=== PATIENT | female | born 2005 | race Caucasian/White ===

== ENCOUNTER 2023-04-02 17:51 | Inpatient (IN) ==
[2023-04-02] MEDS ORDERED: SODIUM CHLORIDE 0.9% 500 ML IV STA (18:13)
[2023-04-02] MEDS ORDERED: ONDANSETRON INJ 2 MG/ML 2 ML VIAL IV STA ×2 (18:13→21:54)
[2023-04-02 18:53] LABS: Basophils # (auto) 0.01 K/uL (0.00-0.20); Basophils % (auto) 0.2 %; Hematocrit (blood only) 32.8 % (37.0-47.0); Hemoglobin 10.4 g/dl (12.0-16.0); Immature Granulocytes # (auto) 0.01 K/uL (0.01-0.20); Immature Granulocytes % (auto) 0.2 %; Lymphocytes # (auto) 1.58 K/uL (1.20-3.40); Lymphocytes % (auto) 30.8 %; Mean Corpuscular Hemoglobin 22.7 pg (25.0-34.0); Mean Corpuscular Hgb Conc 31.7 g/dL (32.0-36.0); Mean Corpuscular Volume 71.6 fL (80.0-100.0); Mean Platelet Volume 10.2 fL (9.4-12.4); Monocytes # (auto) 0.68 K/uL (0.11-0.59); Monocytes % (auto) 13.3 %; Neutrophils # (auto) 2.85 K/uL (1.40-6.50); Neutrophils % (auto) 55.5 %; Platelet Count 244 K/uL (130-400); RDW Coefficient of Variation 17.6 % (11.5-14.5); RDW Standard Deviation 45.5 fL (36.4-46.3); Red Blood Count 4.58 M/uL (4.20-5.40); White Blood Count 5.13 K/ul (4.8-10.8)
[2023-04-02 19:13] LABS: Albumin Globulin Ratio 1.6 (0.9-2); Albumin Level 4.5 gm/dl (3.4-5.0); BUN Creatinine Ratio 9.8 (10-20); Bilirubin,Total 0.4 mg/dl (0.2-1.0); Calcium 9.2 mg/dl (8.6-10.3); Creatinine Clr Calc Pharmacy 103.3 ml/min; Est GFR (African American) 120.2 ml/min; Est GFR (Non-African American) 103.7 ml/min; Globulin 2.9 gm/dl (2.5-4.0); Potassium 3.5 mmol/L (3.5-5.1); Total Protein 7.4 gm/dl (6.0-8.3)
--- NOTE | 2023-04-02 19:17 | Emergency Department Note ---
History of Present Illness General Chief complaint: Vomiting Stated complaint: VOMIT, NAUSEA, ABD PAIN Time Seen by Provider: 04/02/23 18:57 History of Present Illness This is an otherwise healthy 17-year-old female that presents to the emergency department via private vehicle accompanied by mother with complaints of "vomiting, nausea, abdominal pain". The patient notes that for the past several days she has had vomiting. She notes flulike symptoms Wednesday, vomiting on Wednesday with recent diagnosis of influenza and adenovirus by [employer] testing here recently in the ED. Patient notes ongoing nausea and vomiting despite antiemetics. She denies any blood or dark-colored vomit at the present time. No fevers. No pertinent past medical history. She has a history of ankle surgery and nasal surgery before. No allergies to medication. She also notes some intermittent discomfort in the upper abdomen when vomiting. Home Medications Medication Instructions Recorded Confirmed Type hydroxyzine pamoate 50 mg capsule 50 mg PO Q8H PRN sleep/anxiety #15 01/26/23 04/02/23 Rx (Vistaril) caps lorazepam 1 mg tablet 1 mg PO BID PRN anxiety #6 tabs 01/26/23 04/02/23 Rx ferrous sulfate 325 mg (65 mg 325 mg PO QAM 04/02/23 04/02/23 History iron) tablet methylphenidate HCl 18 mg 18 mg PO QAM 04/02/23 04/02/23 History tablet,extended release 24 hr (Concerta) prochlorperazine maleate 10 mg 10 mg PO Q6H PRN nausea and 04/02/23 Rx tablet (Compazine) vomiting #10 tabs Allergies Allergy/AdvReac Type Severity Reaction Status Date / Time No Known Allergies Allergy Unverified 04/02/23 08:45 Past Med/Surg History Medical History No pertinent past medical history Surgical History History of nasal surgery History of ankle surgery Social History Smoking Status: Never smoker Hx Alcohol Use: No Hx Substance Use: No Preferred Language: Cuban Feels Safe at Home: Yes Review of Systems A total of 10 systems reviewed and were otherwise negative Physical Exam Vital Signs Vital Signs - 24 hr 04/02/23 18:10 04/02/23 19:50 04/02/23 20:06 Temperature 36.4 C L Temperature Source Temporal Artery Scan Pulse Rate 103 H 58 L 70 Pulse Rate from SpO2 Sensor Pulse Rhythm Respiratory Rate 20 20 23 Respiratory Effort / Characteristics Non-Labored Spontaneous Respiratory Depth Normal Blood Pressure 125/68 Blood Pressure Mean 87 Pulse Oximetry 97 100 100 Oxygen Delivery Method Room Air Room Air Sepsis Recent Fever Within 48 Hours No Sepsis New/Unexplained Change in Mental Status No Sepsis Action Taken by Nursing No Action Required 04/02/23 20:07 04/02/23 20:30 04/02/23 20:47 Temperature Temperature Source Pulse Rate 63 48 L 52 L Pulse Rate from SpO2 Sensor 47 L Pulse Rhythm Regular Respiratory Rate 20 24 Respiratory Effort / Characteristics Respiratory Depth Blood Pressure Blood Pressure Mean Pulse Oximetry 100 99 Oxygen Delivery Method Room Air Room Air Sepsis Recent Fever Within 48 Hours Sepsis New/Unexplained Change in Mental Status Sepsis Action Taken by Nursing 04/02/23 21:01 Temperature Temperature Source Pulse Rate 51 L Pulse Rate from SpO2 Sensor 51 L Pulse Rhythm Respiratory Rate 17 Respiratory Effort / Characteristics Respiratory Depth Blood Pressure 141/70 H Blood Pressure Mean 93 Pulse Oximetry 99 Oxygen Delivery Method Room Air Sepsis Recent Fever Within 48 Hours Sepsis New/Unexplained Change in Mental Status Sepsis Action Taken by Nursing VITAL SIGNS - Vital signs and nursing notes were reviewed. Stable and afebrile. GENERAL -17-year-old female appearing her stated age who is anxious appearing, but otherwise communicates well with provider and answers questions appropriately. SKIN - Without rashes. No meningeal or petechial rash. HEAD - NC/AT. EYES - PERRL with EOMI bilaterally. Sclera anicteric. EARS - No deformities of external structures noted on gross examination bilaterally. NOSE - Midline and without cyanosis. No epistaxis or purulent drainage noted. MOUTH/OROPHARYNX - Without perioral cyanosis. Buccal mucosa pink and moist and without leukoplakia. Tongue midline with equal elevation of palate bilaterally. No tonsillar hypertrophy, erythema, or exudates noted. Good dentition noted. NECK - Neck with FROM. No nuchal rigidity. LUNGS - Chest wall symmetric without accessory muscle use, intercostals retractions, or central cyanosis. Normal vesicular breath sounds CTA B/L. No wheezes, rales, or rhonchi appreciated. CARDIAC - RRR with S1/S2. No murmur, rubs, or gallops appreciated. ABDOMEN - Abdominal contour normal without pulsations or visible masses. BS normoactive all four quadrants. Mild epigastric abdominal tenderness to palpation. No guarding or rigidity. EXTREMITIES - No clubbing or peripheral cyanosis. +5/5 strength noted in UE/LE bilaterally. NEUROLOGIC - Cranial nerves II through XII grossly intact. PSYCH - A&O, and cooperates fully with examiner. Pt is very pleasant and interacts well with examiner. Course Administered Medications Pantoprazole Sodium 40 mg/ (Dextrose) 100 mls @ 20 mls/hr IV Q5H DAVID Stop: 05/02/23 20:29 Last Admin: 04/02/23 21:23 Dose: 8 mg/hr, 20 mls/hr Documented By: NORI Discontinued Medications Diphenhydramine HCl (Diphenhydramine 50 Mg/Ml Vial) 25 mg IV NOW STA Stop: 04/02/23 19:22 Last Admin: 04/02/23 19:40 Dose: 25 mg Documented By: NORI Sodium Chloride (Nss) 500 mls @ 999 mls/hr IV .Q31M STA Stop: 04/02/23 18:43 Last Infusion: 04/02/23 19:18 Dose: Infused Documented By: Admin: 04/02/23 18:41 Dose: 999 mls/hr Documented By: KELSEY Pantoprazole Sodium 80 mg/ (Dextrose) 120 mls @ 400 mls/hr IV NOW ONE Stop: 04/02/23 20:19 Last Infusion: 04/02/23 21:21 Dose: Infused Documented By: Admin: 04/02/23 20:50 Dose: 400 mls/hr Documented By: NORI Ioversol (Optiray 320 500ml) 84 ml IV ONCE ONE Stop: 04/02/23 20:00 Last Admin: 04/02/23 20:00 Dose: 84 ml Documented By: ADDIE Lorazepam (Lorazepam 1 Mg/1 Ml Syr Ed Inj Use) 1 mg IV ONE STA Stop: 04/02/23 20:18 Last Admin: 04/02/23 20:49 Dose: 1 mg Documented By: NORI Metoclopramide HCl (Metoclopramide Hcl Inj 5 Mg/Ml 2 Ml Vial) 5 mg IV ONE ONE Stop: 04/02/23 19:22 Last Admin: 04/02/23 19:39 Dose: 5 mg Documented By: NORI Ondansetron HCl (Ondansetron Inj 2 Mg/Ml 2 Ml Vial) 4 mg IV NOW STA Stop: 04/02/23 18:14 Last Admin: 04/02/23 18:41 Dose: 4 mg Documented By: KELSEY Ondansetron HCl (Ondansetron Inj 2 Mg/Ml 2 Ml Vial) 4 mg IV NOW STA Stop: 04/02/23 21:55 Last Admin: 04/02/23 22:28 Dose: 4 mg Documented By: MALENA Medical Decision Making Laboratory Data 04/02/23 18:40 04/02/23 18:40 Lab Results 04/02/23 04/02/23 04/02/23 Range/Units 18:40 20:49 21:12 WBC 5.13 (4.8-10.8) K/ul RBC 4.58 (4.20-5.40) M/uL Hgb 10.4 L (12.0-16.0) g/dl Hct 32.8 L (37.0-47.0) % MCV 71.6 L (80.0-100.0) fL MCH 22.7 L (25.0-34.0) pg MCHC 31.7 L (32.0-36.0) g/dL RDW Std Deviation 45.5 (36.4-46.3) fL RDW Coeff of Shaylee 17.6 H (11.5-14.5) % Plt Count 244 (130-400) K/uL MPV 10.2 (9.4-12.4) fL Immature Gran % (Auto) 0.2 % Neut % (Auto) 55.5 % Lymph % (Auto) 30.8 % Lyman % (Auto) 13.3 % Eos % (Auto) 0.0 % Baso % (Auto) 0.2 % Neut # (Auto) 2.85 (1.40-6.50) K/uL Lymph # (Auto) 1.58 (1.20-3.40) K/uL Lyman # (Auto) 0.68 H (0.11-0.59) K/uL Eos # (Auto) 0.00 (0.00-0.50) K/uL Baso # (Auto) 0.01 (0.00-0.20) K/uL Immature Gran # (Auto) 0.01 (0.01-0.20) K/uL Sodium 141 (136-145) mmol/L Potassium 3.5 (3.5-5.1) mmol/L Chloride 107 (98-107) mmol/L Carbon Dioxide 19 L (21-32) mmol/L Anion Gap 15 H (3-11) BUN 8 (6-23) mg/dl Creatinine 0.82 (0.6-1.2) mg/dl Est Cr Clr Drug Dosing 103.3 ml/min Est GFR ( Amer) 120.2 ml/min Est GFR (Non-Af Amer) 103.7 ml/min BUN/Creatinine Ratio 9.8 L (10-20) Glucose 91 (70-99(Fasting)) mg/dl Calcium 9.2 (8.6-10.3) mg/dl Total Bilirubin 0.4 (0.2-1.0) mg/dl AST 45 H (13-39) U/L ALT 31 (7-52) U/L Alkaline Phosphatase 57 (34-104) U/L Total Protein 7.4 (6.0-8.3) gm/dl Albumin 4.5 (3.4-5.0) gm/dl Globulin 2.9 (2.5-4.0) gm/dl Albumin/Globulin Ratio 1.6 (0.9-2) Lipase 28 (11-82) U/L HCG, Qual Negative (Negative) Gastric Fluid pH 2 Gastric Occult Blood Positive A (Negative) Blood Type O Positive Antibody Screen NEGATIVE Imaging Data Radiologist's Impression: Abdomen/Pelvis CT 04/02/23 19:08 CT SCAN OF THE ABDOMEN AND PELVIS WITH IV CONTRAST CLINICAL HISTORY: Epigastric abdominal pain. Vomiting. COMPARISON STUDY: No priors. TECHNIQUE: Following the IV administration of 84 cc of Optiray 320, CT scan of the abdomen and pelvis is performed from the lung bases to the proximal femora. Images are reviewed in the axial, sagittal, and coronal planes. IV contrast was administered without complication. A dose lowering technique was utilized adhering to the principles of ALARA. CT DOSE: 822.53 mGy.cm FINDINGS: Lung bases: The heart is normal in size and without pericardial effusion. The lung bases are clear. Liver: The contrast-enhanced liver is normal in size, contour, and attenuation. Fatty infiltration is seen adjacent to the falciform ligament. There is no intrahepatic biliary ductal dilatation. The hepatic veins and portal veins are patent. Gallbladder: Unremarkable. Spleen: Normal in size and attenuation. Pancreas: Unremarkable. Adrenal glands: Unremarkable. Kidneys: The contrast enhanced kidneys are normal in size and without hydronephrosis. The kidneys enhance symmetrically. Abdominal vasculature: The abdominal aorta is normal in course and caliber. Bowel: There is no bowel obstruction. The appendix is well-visualized and normal. Peritoneum: There is no intraperitoneal free air or abdominal ascites. There is a small fat-containing umbilical hernia. Lymphadenopathy: None. Pelvic viscera: The bladder, uterus, and adnexa are normal as visualized noting bilateral ovarian follicles. There is trace free fluid in the cul-de-sac. Skeletal structures: No lytic or blastic lesions are seen. IMPRESSION: 1. No acute infectious or inflammatory findings are identified in the abdomen or pelvis. 2. Trace free fluid in the cul-de-sac is nonspecific and likely physiologic. ACT 112: Negative or not required by law. Electronically signed by: Nilesh Canales M.D. 04/02/2023 8:38 PM Chest X-Ray 04/02/23 19:08 SINGLE VIEW CHEST CLINICAL HISTORY: Vomiting FINDINGS: An AP, portable, upright chest radiograph is obtained. No prior studies are available for comparison at the time of dictation. The cardiomediastinal silhouette is unremarkable. The lungs and pleural spaces are clear. No pneumothorax is seen. The bony thorax is grossly intact. IMPRESSION: No active disease in the chest. ACT 112: Negative or not required by law. Electronically signed by: Nilesh Canales M.D. 04/02/2023 8:35 PM [facility] [place] Narrative Patient was seen and evaluated as above in room D09. Review was performed of triage nursing notes and vital signs. I did review pertinent previous visits and patient history. After obtaining a thorough history and physical examination the above work up was performed. Patient presents to us today for evaluation of ongoing nausea, vomiting and epigastric abdominal pain. This is the patient's third ED visit for similar in the past 24 hours. The patient does appear anxious on examination and is vomiting into an emesis bag. Emesis at the present time is not discolored. There is no bright red blood. No coffee-ground appearance. Options of care were discussed with the patient as well as mother at bedside. IV access with established. Labs were drawn. No leukocytosis. There is now a downtrending anemia with hemoglobin currently of 10.4. Initially it was 13 around 10 PM last night. Metabolic panel reveals anion gap 15, carbon dioxide 19. Mild AST elevation at 45. hCG negative. Lipase normal. Chest x-ray negative. CT scan of the abdomen/pelvis without emergent finding. During the patient's time here the gastric contents within the emesis bag seemed to have changed with the vomiting to more of a coffee-ground appearance. This was checked and was Hemoccult positive. Protonix bolus and drip was ordered. Patient did receive several antiemetics here and Ativan. She upon reevaluation did have cessation of the vomiting. I do believe that further evaluation and management in the inpatient setting is warranted. Case discussed with the hospitalist, Dr. Recinos. Please refer to further documentation regarding her stay. EKG reveals sinus bradycardia at rate of [address] elevation. QTc 449. QRS 76 GCS: 15 In the evaluation and treatment of this patient the following differential diagnoses were entertained: GI bleed, Maddy-Navarro tear, Boerhaave's syndrome, perforated gastric ulcer, gastritis, esophagitis, influenza, among others Impression & Plan Nausea & vomiting, Acute GI bleeding, Anemia Discharge Plan Visit Data Chief Complaint: Vomiting Stated Complaint: VOMIT, NAUSEA, ABD PAIN ED Provider: Jaylen Mcknight ED Midlevel Provider: Guzman Maravilla Discharge Problem: Nausea & vomiting, Acute GI bleeding, Anemia Patient Disposition: Admitted As Inpatient Condition: Good Forms Stand Alone Forms: [employer] Prescriptions Prescriptions: No Action lorazepam 1 mg tablet 1 mg PO BID PRN (Reason: anxiety) Qty: 6 0RF hydroxyzine pamoate [Vistaril] 50 mg capsule 50 mg PO Q8H PRN (Reason: sleep/anxiety) Qty: 15 0RF ferrous sulfate 325 mg (65 mg iron) Tablet 325 mg PO QAM methylphenidate HCl [Concerta] 18 mg Tablet Extended Release 24hr 18 mg PO QAM prochlorperazine maleate [Compazine] 10 mg tablet 10 mg PO Q6H PRN (Reason: nausea and vomiting) Qty: 10 0RF Referrals Referrals: [facility] [Primary Care Provider] -
[2023-04-02] MEDS ORDERED: diphenhydrAMINE 50 MG/ML VIAL IV STA (19:21)
[2023-04-02] MEDS ORDERED: METOCLOPRAMIDE HCL INJ 5 MG/ML 2 ML VIAL IV ONE (19:21)
[2023-04-02 19:37] LABS: Pregnancy Test, Serum Negative (Negative)
[2023-04-02] MEDS ORDERED: OPTIRAY 320 500ml IV ONE (19:59)
[2023-04-02] MEDS ORDERED: PANTOprazole 80 MG in DEXTROSE 5% 100 ML IV ONE (20:02)
[2023-04-02] MEDS ORDERED: PANTOPRAZOLE BOLUS/DRIP IV STA (20:02)
[2023-04-02] MEDS ORDERED: LORazepam 1 MG/1 ML SYR ED Inj Use IV STA (20:17)
--- NOTE | 2023-04-02 20:36 | XRay Report ---
SINGLE VIEW CHEST CLINICAL HISTORY: Vomiting FINDINGS: An AP, portable, upright chest radiograph is obtained. No prior studies are available for c omparison at the time of dictation. The cardiomediastinal silhouette is unremarkable. The lungs and p leural spaces are clear. No pneumothorax is seen. The bony thorax is grossly intact. IMPRESSION: No active disease in the chest. ACT 112: Negative or not required by law. Electronically signed by: Nilesh Canales M.D. 04/02/2023 8:35 PM
--- NOTE | 2023-04-02 20:41 | CT Scan Report ---
CT SCAN OF THE ABDOMEN AND PELVIS WITH IV CONTRAST CLINICAL HISTORY: Epigastric abdominal pain. Vomiting. COMPARISON STUDY: No priors. TECHNIQUE: Following the IV administration of 84 cc of Optiray 320, CT scan of the abdomen and pelvi s is performed from the lung bases to the proximal femora. Images are reviewed in the axial, sagittal , and coronal planes. IV contrast was administered without complication. A dose lowering technique wa s utilized adhering to the principles of ALARA. CT DOSE: 822.53 mGy.cm FINDINGS: Lung bases: The heart is normal in size and without pericardial effusion. The lung bases are clear. Liver: The contrast-enhanced liver is normal in size, contour, and attenuation. Fatty infiltration is seen adjacent to the falciform ligament. There is no intrahepatic biliary ductal dilatation. The hep atic veins and portal veins are patent. Gallbladder: Unremarkable. Spleen: Normal in size and attenuation. Pancreas: Unremarkable. Adrenal glands: Unremarkable. Kidneys: The contrast enhanced kidneys are normal in size and without hydronephrosis. The kidneys enh ance symmetrically. Abdominal vasculature: The abdominal aorta is normal in course and caliber. Bowel: There is no bowel obstruction. The appendix is well-visualized and normal. Peritoneum: There is no intraperitoneal free air or abdominal ascites. There is a small fat-containin g umbilical hernia. Lymphadenopathy: None. Pelvic viscera: The bladder, uterus, and adnexa are normal as visualized noting bilateral ovarian fol licles. There is trace free fluid in the cul-de-sac. Skeletal structures: No lytic or blastic lesions are seen. IMPRESSION: 1. No acute infectious or inflammatory findings are identified in the abdomen or pelvis. 2. Trace free fluid in the cul-de-sac is nonspecific and likely physiologic. ACT 112: Negative or not required by law. Electronically signed by: Nilesh Canales M.D. 04/02/2023 8:38 PM
[2023-04-02 20:56] LABS: Gastric Occult Blood Positive (Negative); pH Gastric Fluid 2
[2023-04-02] MEDS: PANTOprazole 40 MG in DEXTROSE 5% MINI-B 100 ML IV SCH (21:23)
--- NOTE | 2023-04-02 21:50 | History & Physical Report ---
Date of Service April 02, 2023 Assessment & Plan (1) Nausea & vomiting: Plan: 17 yo female with PMHx GERD, anxiety, and ADHD presents with vomiting. #Intractable Vomiting -presented with 5 days of nonspecific symptoms with persistent N/V. Tested positive for adenovirus and influenza which are the most likely culprit. Minimal alcohol use with last drink over 2 weeks ago. Has only tried marijuana once in the distant past. She did recently start Concerta ~2 weeks ago however it would be less likely for side effects related to medication to begin 1 week after initiation. -CXR and CT A/P unremarkable -UDS pending -supportive care #Anemia, acute -Hgb 13 (04/01/23). Appears to be trending down, 10.4 on this admission. +gastric occult. Possibly dilutional since she has received 4L IVF since lat night. Cannot exclude GI bleed, suspicion for Maddy Navarro tear 2/2 vomiting. -CT A/P unremarkable -NPO, maintenance IVF, protonix drip -FOBT ordered -GI consulted -trend H&H #Anxiety -IV ativan prn #ADHD -started concerta 2 weeks ago. Unclear if attributing to intractable vomiting. Hold for now. DVT ppx: ambulation; avoid chemical due to possible GI bleed FEN/GI: NPO, IVF Code Status: full Dispo: med tele (2) Influenza A: Plan: Supportive care at this (3) Adenovirus infection: Plan: Supportive care at this (4) Acute anxiety: Plan: Supportive care at this time (5) Anemia: Plan: As discussed above and resident physician (6) Acute GI bleeding: Plan: As discussed above and resident physician. Continue IV Protonix. History of Present Illness Chief Complaint: intractable vomiting Primary Care Provider: [facility] 17 yo female with PMHx GERD, anxiety, and ADHD presents with vomiting. Mom at bedside. 5 days ago patient started developing acute illness symptoms including nausea, loss of appetite, chills, fatigue, body aches, cough, chest tightness, sob, abd pain. The following day she began having nonbilious nonbloody vomiting which has been ongoing since. Denies fever, dysuria, hematuria. No BM for the past few days due to poor oral intake. She came into the ED last night due to her ongoing symptoms and tested positive for the flu and adenovirus. She was discharged home after receiving IVF and anti-emetics. She presented again to the ED this morning due to no relief and again was discharged after further supportive care. Once again with no relief, she presented this evening and will now be admitted. More recently experiencing brownish sputum/gastric excretions and with +gastric occult in ED. Also endorses new onset throat pain. She is an occasional alcohol user with her last drink being 2.5 weeks ago. Has tried marijuana once in the distant past. Otherwise denies recreational drug or tobacco use. Of note, she did start Concerta 2 weeks ago. Allergies Allergy/AdvReac Type Severity Reaction Status Date / Time No Known Allergies Allergy Unverified 04/02/23 08:45 Home Medications Medication Instructions Recorded Confirmed Type hydroxyzine pamoate 50 mg capsule 50 mg PO Q8H PRN sleep/anxiety #15 01/26/23 04/02/23 Rx (Vistaril) caps lorazepam 1 mg tablet 1 mg PO BID PRN anxiety #6 tabs 01/26/23 04/02/23 Rx ferrous sulfate 325 mg (65 mg 325 mg PO QAM 04/02/23 04/02/23 History iron) tablet methylphenidate HCl 18 mg 18 mg PO QAM 04/02/23 04/02/23 History tablet,extended release 24 hr (Concerta) prochlorperazine maleate 10 mg 10 mg PO Q6H PRN nausea and 04/02/23 Rx tablet (Compazine) vomiting #10 tabs Past Med/Surg History Medical History No pertinent past medical history Surgical History History of nasal surgery History of ankle surgery Social History Smoking Status: Never smoker Hx Alcohol Use: No Hx Substance Use: No Preferred Language: Malagasy Communication Ability: Effective Treating Machine Operator Required: No Beliefs That Will Affect Care: None Current Living Situation: Other Current Living Situation Comment: apartment with 3 other people Other Information That Helps Us Care for You: No Feels Safe at Home: Yes Safety Concerns: Feels Safe At This Time Assistive Devices: None Review of Systems Review of Systems: All systems reviewed & are unremarkable except as noted in HPI & below Physical Exam Physical Exam: Constitutional: in no acute distress, pleasant and normal affect, AOx3. Vitals as above. HEENT: No scleral injection or discharge.Dry mucous membranes.Clear oropharynx without exudate. Neck: Supple without lymphadenopathy or thyromegaly. Trachea midline. Lungs: Clear to auscultation bilaterally with good effort. No wheezes/rales/rhonchi. Cardiac: Regular rate and rhythm.No murmurs.No extremity edema. 2+ distal peripheral pulses. Abdomen: +BS. Mild diffuse tenderness. Soft and nondistended.No guarding. No hepatosplenomegaly. MSK: No cyanosis or clubbing. Extremities motor strength 5/5. Skin: No rashes, warm, dry. Neurologic: no focal deficits Results & Data Results & Data Vital Signs (Past 12 Hours) Vital Signs Temp Pulse Resp BP Pulse Ox O2 Del Method 04/02/23 21:01 51 L 17 141/70 H 99 Room Air 04/02/23 20:47 52 L 24 99 Room Air 04/02/23 20:30 48 L 20 100 Room Air 04/02/23 20:07 63 04/02/23 20:06 70 23 100 Room Air 04/02/23 19:50 58 L 20 100 Room Air 04/02/23 18:10 36.4 C L 103 H 20 125/68 97 Laboratory Results Laboratory Results WBC 5.13 K/ul (4.8-10.8) 04/02/23 18:40 RBC 4.58 M/uL (4.20-5.40) 04/02/23 18:40 Hgb 10.4 g/dl (12.0-16.0) L 04/02/23 18:40 Hct 32.8 % (37.0-47.0) L 04/02/23 18:40 MCV 71.6 fL (80.0-100.0) L 04/02/23 18:40 MCH 22.7 pg (25.0-34.0) L 04/02/23 18:40 MCHC 31.7 g/dL (32.0-36.0) L 04/02/23 18:40 RDW Std Deviation 45.5 fL (36.4-46.3) 04/02/23 18:40 RDW Coeff of Shaylee 17.6 % (11.5-14.5) H 04/02/23 18:40 Plt Count 244 K/uL (130-400) 04/02/23 18:40 MPV 10.2 fL (9.4-12.4) 04/02/23 18:40 Immature Gran % (Auto) 0.2 % 04/02/23 18:40 Neut % (Auto) 55.5 % 04/02/23 18:40 Lymph % (Auto) 30.8 % 04/02/23 18:40 [place] % (Auto) 13.3 % 04/02/23 18:40 Eos % (Auto) 0.0 % 04/02/23 18:40 Baso % (Auto) 0.2 % 04/02/23 18:40 Neut # (Auto) 2.85 K/uL (1.40-6.50) 04/02/23 18:40 Lymph # (Auto) 1.58 K/uL (1.20-3.40) 04/02/23 18:40 [place] # (Auto) 0.68 K/uL (0.11-0.59) H 04/02/23 18:40 Eos # (Auto) 0.00 K/uL (0.00-0.50) 04/02/23 18:40 Baso # (Auto) 0.01 K/uL (0.00-0.20) 04/02/23 18:40 Immature Gran # (Auto) 0.01 K/uL (0.01-0.20) 04/02/23 18:40 Sodium 141 mmol/L (136-145) 04/02/23 18:40 Potassium 3.5 mmol/L (3.5-5.1) 04/02/23 18:40 Chloride 107 mmol/L (98-107) 04/02/23 18:40 Carbon Dioxide 19 mmol/L (21-32) L 04/02/23 18:40 Anion Gap 15 (3-11) H 04/02/23 18:40 BUN 8 mg/dl (6-23) 04/02/23 18:40 Creatinine 0.82 mg/dl (0.6-1.2) 04/02/23 18:40 Est Cr Clr Drug Dosing 103.3 ml/min 04/02/23 18:40 Est GFR ( Amer) 120.2 ml/min 04/02/23 18:40 Est GFR (Non-Af Amer) 103.7 ml/min 04/02/23 18:40 BUN/Creatinine Ratio 9.8 (10-20) L 04/02/23 18:40 Glucose 91 mg/dl (70-99(Fasting)) 04/02/23 18:40 Calcium 9.2 mg/dl (8.6-10.3) 04/02/23 18:40 Total Bilirubin 0.4 mg/dl (0.2-1.0) 04/02/23 18:40 AST 45 U/L (13-39) H 04/02/23 18:40 ALT 31 U/L (7-52) 04/02/23 18:40 Alkaline Phosphatase 57 U/L (34-104) 04/02/23 18:40 Total Protein 7.4 gm/dl (6.0-8.3) 04/02/23 18:40 Albumin 4.5 gm/dl (3.4-5.0) 04/02/23 18:40 Globulin 2.9 gm/dl (2.5-4.0) 04/02/23 18:40 Albumin/Globulin Ratio 1.6 (0.9-2) 04/02/23 18:40 Lipase 28 U/L (11-82) 04/02/23 18:40 HCG, Qual Negative (Negative) 04/02/23 18:40 Gastric Fluid pH 2 04/02/23 20:49 Gastric Occult Blood Positive (Negative) A 04/02/23 20:49 Impressions Abdomen/Pelvis CT 04/02/23 19:08 CT SCAN OF THE ABDOMEN AND PELVIS WITH IV CONTRAST CLINICAL HISTORY: Epigastric abdominal pain. Vomiting. COMPARISON STUDY: No priors. TECHNIQUE: Following the IV administration of 84 cc of Optiray 320, CT scan of the abdomen and pelvis is performed from the lung bases to the proximal femora. Images are reviewed in the axial, sagittal, and coronal planes. IV contrast was administered without complication. A dose lowering technique was utilized adhering to the principles of ALARA. CT DOSE: 822.53 mGy.cm FINDINGS: Lung bases: The heart is normal in size and without pericardial effusion. The lung bases are clear. Liver: The contrast-enhanced liver is normal in size, contour, and attenuation. Fatty infiltration is seen adjacent to the falciform ligament. There is no intrahepatic biliary ductal dilatation. The hepatic veins and portal veins are patent. Gallbladder: Unremarkable. Spleen: Normal in size and attenuation. Pancreas: Unremarkable. Adrenal glands: Unremarkable. Kidneys: The contrast enhanced kidneys are normal in size and without hydronephrosis. The kidneys enhance symmetrically. Abdominal vasculature: The abdominal aorta is normal in course and caliber. Bowel: There is no bowel obstruction. The appendix is well-visualized and normal. Peritoneum: There is no intraperitoneal free air or abdominal ascites. There is a small fat-containing umbilical hernia. Lymphadenopathy: None. Pelvic viscera: The bladder, uterus, and adnexa are normal as visualized noting bilateral ovarian follicles. There is trace free fluid in the cul-de-sac. Skeletal structures: No lytic or blastic lesions are seen. IMPRESSION: 1. No acute infectious or inflammatory findings are identified in the abdomen or pelvis. 2. Trace free fluid in the cul-de-sac is nonspecific and likely physiologic. ACT 112: Negative or not required by law. Electronically signed by: Nilesh Canales M.D. 04/02/2023 8:38 PM Chest X-Ray 04/02/23 19:08 SINGLE VIEW CHEST CLINICAL HISTORY: Vomiting FINDINGS: An AP, portable, upright chest radiograph is obtained. No prior studies are available for comparison at the time of dictation. The cardiomediastinal silhouette is unremarkable. The lungs and pleural spaces are clear. No pneumothorax is seen. The bony thorax is grossly intact. IMPRESSION: No active disease in the chest. ACT 112: Negative or not required by law. Electronically signed by: Nilesh Canales M.D. 04/02/2023 8:35 PM Supervising Physician Co-Signing Physician Notes I have personally seen, evaluated and examined the patient. I have also personally discussed the management of the patient with the resident physician and I agree with the exam findings documented in the history and physical examination and the documented assessment and plan unless otherwise stated below. In general: 17-year-old female very anxious and emotional mother is in the room with her. She had another episode of emesis upon waking up after sleeping for a couple hours after the Ativan that was administered in the ER. She denies any abdominal pain HEENT: Normocephalic atraumatic pupils are equal round and reactive to light bilaterally. No scleral icterus no conjunctival injection external auditory canals are patent septum is in the midline nose is without discharge oral mucosa is pink and moist without lesion. NECK: Supple no rigidity no lymphadenopathy no thyromegaly no carotid bruits no JVD no masses. HEART: Regular rate and rhythm I do not appreciate any ectopy or rub. No murmur. LUNGS: Clear to auscultation bilaterally and anteriorly with no evidence of adventitious sounds/wheezes rales or rhonchi. ABDOMEN: Soft nontender, no rebound, no peritoneal signs, positive bowel sounds, no appreciable organomegaly. EXTREMITIES: Intact, no peripheral cyanosis, clubbing or edema. Strength is 5 out of 5 in extremities x4, no pathological reflexes. NEUROLOGICAL: Cranial nerves II through XII are grossly intact with no focal deficit elicited upon examination. No tremor. Assessment/plan: As described above. Please refer to orders for further planning. I do suspicion that the a significant portion of this anemia is probably secondary to delusional anemia, however we will monitor H&H closely and await GIs input for the nausea and vomiting possible upper GI bleed.. Resident Activity Tracking Resident Involvement: Resident Care Provided Care Provided: Adult [facility] Medicine
[2023-04-02] MEDS ORDERED: ACETAMINOPHEN 1,000 MG/100 ML VIAL IV PRN (23:09)
[2023-04-02] MEDS: SODIUM CHLORIDE 0.9% 1,000 ML IV SCH (23:49)
--- NOTE | 2023-04-02 23:49 | Billing Data ---
Date of Service April 02, 2023 Coding Level of Care Code 65941 INT INP/OBS CARE
[2023-04-03] MEDS ORDERED: PROMETHAZINE 12.5 MG/50.5 ML NSS IV ONE (00:28)
[2023-04-03 00:29] LABS: Hematocrit (blood only) 31.9 % (37.0-47.0); Hemoglobin 10.3 g/dl (12.0-16.0)
[2023-04-03] MEDS: PROMETHAZINE HCL 12.5 MG in SODIUM CHLORIDE 0.9% 50 ML IV PRN ×3 (00:34→20:24)
[2023-04-03] MEDS: PANTOprazole 40 MG in DEXTROSE 5% MINI-B 100 ML IV SCH ×3 (02:07→11:29)
[2023-04-03] MEDS ORDERED: LORazepam 1 MG/1 ML SYR ED Inj Use ONE (04:28)
[2023-04-03] MEDS: ONDANSETRON INJ 2 MG/ML 2 ML VIAL IV PRN ×6 (04:31→21:48)
[2023-04-03] MEDS: LORazepam 0.5 MG in SYRINGE 0.25 ML IV PRN ×2 (04:31→10:36)
[2023-04-03 04:42] LABS: Basophils # (auto) 0.02 K/uL (0.00-0.20); Basophils % (auto) 0.2 %; Hematocrit (blood only) 30.2 % (37.0-47.0); Hemoglobin 9.7 g/dl (12.0-16.0); Immature Granulocytes # (auto) 0.04 K/uL (0.01-0.20); Immature Granulocytes % (auto) 0.4 %; Lymphocytes # (auto) 1.84 K/uL (1.20-3.40); Lymphocytes % (auto) 18.5 %; Mean Corpuscular Hemoglobin 23.2 pg (25.0-34.0); Mean Corpuscular Hgb Conc 32.1 g/dL (32.0-36.0); Mean Corpuscular Volume 72.2 fL (80.0-100.0); Mean Platelet Volume 10.6 fL (9.4-12.4); Monocytes # (auto) 0.85 K/uL (0.11-0.59); Monocytes % (auto) 8.6 %; Neutrophils # (auto) 7.17 K/uL (1.40-6.50); Neutrophils % (auto) 72.3 %; Platelet Count 207 K/uL (130-400); RDW Standard Deviation 46.7 fL (36.4-46.3); Red Blood Count 4.18 M/uL (4.20-5.40); White Blood Count 9.92 K/ul (4.8-10.8)
[2023-04-03 04:48] LABS: Albumin Globulin Ratio 1.4 (0.9-2); BUN Creatinine Ratio 8.2 (10-20); Bilirubin,Total 0.3 mg/dl (0.2-1.0); Calcium 8.6 mg/dl (8.6-10.3); Est GFR (African American) 138.4 ml/min; Est GFR (Non-African American) 119.4 ml/min; Globulin 2.8 gm/dl (2.5-4.0); Magnesium 1.6 mg/dl (1.7-2.4); Potassium 3.7 mmol/L (3.5-5.1); Total Protein 6.8 gm/dl (6.0-8.3)
[2023-04-03 05:06] LABS: Ferritin 29.5 ng/ml (8-388)
[2023-04-03 09:27] LABS: Appearance Urine Turbid (Clear); Bacteria Urine Automated Negative (Negative); Bilirubin Urine Negative (Negative); Blood Urine Negative (Negative); Color Urine Yellow; Epithelial Cell Urine Auto 20-30 /lpf (0-5); Glucose Urine UA Negative (Negative); Ketones Urine 2+ (Negative); Leukocyte Esterase Urine Negative (Negative); Nitrite Urine Negative (Negative); Protein Urine Trace (Negative); RBC Urine Automated 0-4 /hpf (0-4); Specific Gravity Urine 1.035 (1.000-1.030); Urobilinogen Urine Negative (Negative); pH Urine 6.5 (4.5-7.5)
[2023-04-03] MEDS: SODIUM CHLORIDE 0.9% 1,000 ML IV SCH ×2 (09:54→20:06)
--- NOTE | 2023-04-03 09:57 | Gastrointestinal Consultation ---
Date of Consultation April 03, 2023 Assessment & Plan (1) Anemia: She has protracted nausea and vomiting from a viral illness. She is anemic but the drop is most likely due to rehydration. I do not think she has a GI bleed. She has reported vomiting streaks of blood on 2-3 occasions but has never vomited marion blood or clots. She also has not had any melena, in fact she has not had a bowel movement. I think the streaks of blood are likely just irritation from the vomiting. I doubt this is even a Maddy Navarro because of her description and lack of melena. I would focus on adequate control of her nausea. She is begging for some water. I recommended against it with the retching but she wants to try some anyway. Will allow sips and chips. History of Present Illness Reason for Consultation: vomiting blood Attending Physician: Jairo Sullivan MD History of Present Illness 17 year old female who has had a viral illness with vomiting for 5 days now. She has both influenza and adenovirus. She is unable to stop and unable to sit still. As I am visiting with her she is up and down in bed with several e pisodes of retching. She says on 2-3 occasions she has vomited "streaks" of blood. Never had problems like this before. Allergies Allergy/AdvReac Type Severity Reaction Status Date / Time No Known Allergies Allergy Unverified 04/02/23 08:45 Home Medications Medication Instructions Recorded Confirmed Type hydroxyzine pamoate 50 mg capsule 50 mg PO Q8H PRN sleep/anxiety #15 01/26/23 04/02/23 Rx (Vistaril) caps lorazepam 1 mg tablet 1 mg PO BID PRN anxiety #6 tabs 01/26/23 04/02/23 Rx ferrous sulfate 325 mg (65 mg 325 mg PO QAM 04/02/23 04/02/23 History iron) tablet methylphenidate HCl 18 mg 18 mg PO QAM 04/02/23 04/02/23 History tablet,extended release 24 hr (Concerta) prochlorperazine maleate 10 mg 10 mg PO Q6H PRN nausea and 04/02/23 Rx tablet (Compazine) vomiting #10 tabs Patient History Medical History No pertinent past medical history Surgical History History of nasal surgery History of ankle surgery Social History Smoking Status: Never smoker Hx Alcohol Use: No Hx Substance Use: No Preferred Language: Guyanese Communication Ability: Effective Automotive Customer Experience Advisor Required: No Beliefs That Will Affect Care: None Current Living Situation: Other Current Living Situation Comment: apartment with 3 other people Other Information That Helps Us Care for You: No Feels Safe at Home: Yes Safety Concerns: Feels Safe At This Time Assistive Devices: None Review of Systems Review of Systems: All systems reviewed & are unremarkable except as noted in HPI & below Physical Exam Physical Exam: Very anxious, unable to lay still, exam not done at this time due to this. She seems frantic Constitutional: well nourished and + ill appearing Results & Data Vital Signs (Past 12 Hours) Vital Signs Pulse Pulse Resp BP BP Pulse Ox O2 Del Method 04/03/23 07:21 47 L 04/03/23 07:19 56 L 18 118/59 L 96 Room Air 04/03/23 04:34 54 L 15 135/76 96 Room Air 04/02/23 23:51 56 L 19 113/64 100 Room Air Laboratory Results 04/03/23 04/02/23 04/02/23 Range/Units 03:55 23:52 21:12 WBC 9.92 (4.8-10.8) K/ul RBC 4.18 L (4.20-5.40) M/uL Hgb 9.7 L 10.3 L (12.0-16.0) g/dl Hct 30.2 L 31.9 L (37.0-47.0) % MCV 72.2 L (80.0-100.0) fL MCH 23.2 L (25.0-34.0) pg MCHC 32.1 (32.0-36.0) g/dL RDW Std Deviation 46.7 H (36.4-46.3) fL RDW Coeff of Shaylee 18.0 H (11.5-14.5) % Plt Count 207 (130-400) K/uL MPV 10.6 (9.4-12.4) fL Immature Gran % (Auto) 0.4 % Neut % (Auto) 72.3 % Lymph % (Auto) 18.5 % [place] % (Auto) 8.6 % Eos % (Auto) 0.0 % Baso % (Auto) 0.2 % Neut # (Auto) 7.17 H (1.40-6.50) K/uL Lymph # (Auto) 1.84 (1.20-3.40) K/uL [place] # (Auto) 0.85 H (0.11-0.59) K/uL Eos # (Auto) 0.00 (0.00-0.50) K/uL Baso # (Auto) 0.02 (0.00-0.20) K/uL Immature Gran # (Auto) 0.04 (0.01-0.20) K/uL Sodium 140 (136-145) mmol/L Potassium 3.7 (3.5-5.1) mmol/L Chloride 108 H (98-107) mmol/L Carbon Dioxide 20 L (21-32) mmol/L Anion Gap 12 H (3-11) BUN 6 (6-23) mg/dl Creatinine 0.73 (0.6-1.2) mg/dl Est Cr Clr Drug Dosing 116.0 ml/min Est GFR ( Amer) 138.4 ml/min Est GFR (Non-Af Amer) 119.4 ml/min BUN/Creatinine Ratio 8.2 L (10-20) Glucose 82 (70-99(Fasting)) mg/dl Calcium 8.6 (8.6-10.3) mg/dl Magnesium 1.6 L (1.7-2.4) mg/dl Iron 80 (35-150) mcg/dl TIBC 394 (250-450) mcg/dl Unsaturated IBC 314 (155-355) mcg/dl Transferrin % Sat 20 (15-50) % Ferritin 29.5 (8-388) ng/ml Total Bilirubin 0.3 (0.2-1.0) mg/dl AST 39 (13-39) U/L ALT 27 (7-52) U/L Alkaline Phosphatase 49 (34-104) U/L Total Protein 6.8 (6.0-8.3) gm/dl Albumin 4.0 (3.4-5.0) gm/dl Globulin 2.8 (2.5-4.0) gm/dl Albumin/Globulin Ratio 1.4 (0.9-2) Lipase (11-82) U/L HCG, Qual (Negative) Urine Color Urine Appearance (Clear) Urine pH (4.5-7.5) Ur Specific [place] (1.000-1.030) Urine Protein (Negative) Urine Glucose (UA) (Negative) Urine Ketones (Negative) Urine Blood (Negative) Urine Nitrite (Negative) Urine Bilirubin (Negative) Urine Urobilinogen (Negative) Ur Leukocyte Esterase (Negative) Urine WBC (Auto) (0-5) /hpf Urine RBC (Auto) (0-4) /hpf U Hyaline Cast (Auto) (0-5) /lpf U Epithel Cells (Auto) (0-5) /lpf Urine Bacteria (Auto) (Negative) Gastric Fluid pH Gastric Occult Blood (Negative) Urine Opiates Screen Ur Methadone, Qual Urine Barbiturates Ur Phencyclidine (PCP) U Amphetamin/Meth Scrn MDMA (Ecstasy) Screen U Benzodiazepines Scrn Ur Cocaine Metabolite U Marijuana (THC) Screen Monoscreen Negative (Negative) Blood Type O Positive Antibody Screen NEGATIVE 04/02/23 04/02/23 04/02/23 Range/Units 20:49 18:40 05:00 WBC 5.13 (4.8-10.8) K/ul RBC 4.58 (4.20-5.40) M/uL Hgb 10.4 L (12.0-16.0) g/dl Hct 32.8 L (37.0-47.0) % MCV 71.6 L (80.0-100.0) fL MCH 22.7 L (25.0-34.0) pg MCHC 31.7 L (32.0-36.0) g/dL RDW Std Deviation 45.5 (36.4-46.3) fL RDW Coeff of Shaylee 17.6 H (11.5-14.5) % Plt Count 244 (130-400) K/uL MPV 10.2 (9.4-12.4) fL Immature Gran % (Auto) 0.2 % Neut % (Auto) 55.5 % Lymph % (Auto) 30.8 % [place] % (Auto) 13.3 % Eos % (Auto) 0.0 % Baso % (Auto) 0.2 % Neut # (Auto) 2.85 (1.40-6.50) K/uL Lymph # (Auto) 1.58 (1.20-3.40) K/uL [place] # (Auto) 0.68 H (0.11-0.59) K/uL Eos # (Auto) 0.00 (0.00-0.50) K/uL Baso # (Auto) 0.01 (0.00-0.20) K/uL Immature Gran # (Auto) 0.01 (0.01-0.20) K/uL Sodium 141 (136-145) mmol/L Potassium 3.5 (3.5-5.1) mmol/L Chloride 107 (98-107) mmol/L Carbon Dioxide 19 L (21-32) mmol/L Anion Gap 15 H (3-11) BUN 8 (6-23) mg/dl Creatinine 0.82 (0.6-1.2) mg/dl Est Cr Clr Drug Dosing 103.3 ml/min Est GFR ( Amer) 120.2 ml/min Est GFR (Non-Af Amer) 103.7 ml/min BUN/Creatinine Ratio 9.8 L (10-20) Glucose 91 (70-99(Fasting)) mg/dl Calcium 9.2 (8.6-10.3) mg/dl Magnesium (1.7-2.4) mg/dl Iron (35-150) mcg/dl TIBC (250-450) mcg/dl Unsaturated IBC (155-355) mcg/dl Transferrin % Sat (15-50) % Ferritin (8-388) ng/ml Total Bilirubin 0.4 (0.2-1.0) mg/dl AST 45 H (13-39) U/L ALT 31 (7-52) U/L Alkaline Phosphatase 57 (34-104) U/L Total Protein 7.4 (6.0-8.3) gm/dl Albumin 4.5 (3.4-5.0) gm/dl Globulin 2.9 (2.5-4.0) gm/dl Albumin/Globulin Ratio 1.6 (0.9-2) Lipase 28 (11-82) U/L HCG, Qual Negative (Negative) Urine Color Yellow Urine Appearance Turbid A (Clear) Urine pH 6.5 (4.5-7.5) Ur Specific [place] 1.035 H (1.000-1.030) Urine Protein Trace H (Negative) Urine Glucose (UA) Negative (Negative) Urine Ketones 2+ H (Negative) Urine Blood Negative (Negative) Urine Nitrite Negative (Negative) Urine Bilirubin Negative (Negative) Urine Urobilinogen Negative (Negative) Ur Leukocyte Esterase Negative (Negative) Urine WBC (Auto) 1-5 (0-5) /hpf Urine RBC (Auto) 0-4 (0-4) /hpf U Hyaline Cast (Auto) 1-5 (0-5) /lpf U Epithel Cells (Auto) 20-30 H (0-5) /lpf Urine Bacteria (Auto) Negative (Negative) Gastric Fluid pH 2 Gastric Occult Blood Positive A (Negative) Urine Opiates Screen Pending Ur Methadone, Qual Pending Urine Barbiturates Pending Ur Phencyclidine (PCP) Pending U Amphetamin/Meth Scrn Pending MDMA (Ecstasy) Screen Pending U Benzodiazepines Scrn Pending Ur Cocaine Metabolite Pending U Marijuana (THC) Screen Pending Monoscreen (Negative) Blood Type Antibody Screen Diagnostic Findings Abdomen/Pelvis CT 04/02/23 19:08 CT SCAN OF THE ABDOMEN AND PELVIS WITH IV CONTRAST CLINICAL HISTORY: Epigastric abdominal pain. Vomiting. COMPARISON STUDY: No priors. TECHNIQUE: Following the IV administration of 84 cc of Optiray 320, CT scan of the abdomen and pelvis is performed from the lung bases to the proximal femora. Images are reviewed in the axial, sagittal, and coronal planes. IV contrast was administered without complication. A dose lowering technique was utilized adhering to the principles of ALARA. CT DOSE: 822.53 mGy.cm FINDINGS: Lung bases: The heart is normal in size and without pericardial effusion. The lung bases are clear. Liver: The contrast-enhanced liver is normal in size, contour, and attenuation. Fatty infiltration is seen adjacent to the falciform ligament. There is no intrahepatic biliary ductal dilatation. The hepatic veins and portal veins are patent. Gallbladder: Unremarkable. Spleen: Normal in size and attenuation. Pancreas: Unremarkable. Adrenal glands: Unremarkable. Kidneys: The contrast enhanced kidneys are normal in size and without hydronephrosis. The kidneys enhance symmetrically. Abdominal vasculature: The abdominal aorta is normal in course and caliber. Bowel: There is no bowel obstruction. The appendix is well-visualized and normal. Peritoneum: There is no intraperitoneal free air or abdominal ascites. There is a small fat-containing umbilical hernia. Lymphadenopathy: None. Pelvic viscera: The bladder, uterus, and adnexa are normal as visualized noting bilateral ovarian follicles. There is trace free fluid in the cul-de-sac. Skeletal structures: No lytic or blastic lesions are seen. IMPRESSION: 1. No acute infectious or inflammatory findings are identified in the abdomen or pelvis. 2. Trace free fluid in the cul-de-sac is nonspecific and likely physiologic. ACT 112: Negative or not required by law. Electronically signed by: Nilesh Canales M.D. 04/02/2023 8:38 PM Chest X-Ray 04/02/23 19:08 SINGLE VIEW CHEST CLINICAL HISTORY: Vomiting FINDINGS: An AP, portable, upright chest radiograph is obtained. No prior studies are available for comparison at the time of dictation. The cardiomediastinal silhouette is unremarkable. The lungs and pleural spaces are clear. No pneumothorax is seen. The bony thorax is grossly intact. IMPRESSION: No active disease in the chest. ACT 112: Negative or not required by law. Electronically signed by: Nilesh Canales M.D. 04/02/2023 8:35 PM
[2023-04-03 10:12] LABS: Amphetamines+Metham, Urine Neg (Neg); Barbiturates, Urine Neg (Neg); Benzodiazepine, Urine Neg (Neg); Cocaine, Urine Neg (Neg); MDMA (Ecstacy), Urine Neg (Neg); Marijuana, Urine Pos (Neg); Methadone, Urine Neg (Neg); Opiate, Urine Neg (Neg); Phencyclidine, Urine Neg (Neg)
--- NOTE | 2023-04-03 15:00 | Hospitalist Progress Note ---
Date of Service April 03, 2023 Assessment & Plan (1) Nausea & vomiting: Plan: 17 yo female with PMHx GERD, anxiety, and ADHD presents with vomiting. #Intractable Vomiting -presented with 5 days of nonspecific symptoms with persistent N/V. Tested positive for adenovirus and influenza which are the most likely culprit. Minimal alcohol use with last drink over 2 weeks ago. Has only tried marijuana once in the distant past. She did recently start Concerta ~2 weeks ago however it would be less likely for side effects related to medication to begin 1 week after initiation. -CXR and CT A/P unremarkable -UDS positive for marijuana -supportive care Continue IV fluids Patient is less nauseous and is hungry. Will start her on a clear liquid diet today. #Anemia, acute -Hgb 13 (04/01/23). Appears to be trending down, 10.4 on this admission. +gastric occult. Possibly dilutional since she has received 4L IVF since lat night. Cannot exclude GI bleed, suspicion for Maddy Navarro tear 2/2 vomiting. -CT A/P unremarkable GI consulted. Not convinced that this is active GI bleed specially in the absence of any bowel movement Discontinue Protonix drip. Switch to IV Protonix twice daily Started a clear liquid diet #Anxiety -IV ativan prn #ADHD -started concerta 2 weeks ago. Unclear if attributing to intractable vomiting. Hold for now. DVT ppx: ambulation; avoid chemical due to possible GI bleed FEN/GI: Clear liquid diet, IVF Code Status: full (2) Influenza A: Plan: Supportive care at this (3) Adenovirus infection: Plan: Supportive care at this (4) Acute anxiety: Plan: Supportive care at this time (5) Anemia: Plan: As discussed above and resident physician (6) Acute GI bleeding: Plan: As discussed above and resident physician. Continue IV Protonix. Plan Spoke to mother at the bedside Admission and Anticipated Discharge Date Admission Date: April 02, 2023 Subjective Patient says that she is feeling a little bit better. She is less nauseous. She is also hungry. Review of Systems Review of Systems: All systems reviewed & are unremarkable except as noted in Subjective Physical Exam Physical Exam: General: Awake, conversant Heart: S1, S2/regular rate and rhythm, no murmur rubs or gallops Lungs: Clear to auscultation bilaterally. Normal effort Abdomen: Soft/nontender/nondistended. No hepatosplenomegaly Extremities: No clubbing/cyanosis. No edema Behavior: Appropriate, cooperative Results & Data Results & Data Vital Signs (Past 12 Hours) Vital Signs Temp Pulse Pulse Pulse Resp BP BP 04/03/23 13:39 36.9 C 50 L 18 04/03/23 12:48 64 17 04/03/23 07:21 47 L 04/03/23 07:19 56 L 18 118/59 L 04/03/23 04:34 54 L 15 135/76 BP Pulse Ox O2 Del Method 04/03/23 13:39 122/69 99 Room Air 04/03/23 12:48 137/82 98 Room Air 04/03/23 07:21 04/03/23 07:19 96 Room Air 04/03/23 04:34 96 Room Air Laboratory Results Abnormal lab results 04/02/23 04/02/23 04/02/23 Range/Units 05:00 18:40 20:49 RBC (4.20-5.40) M/uL Hgb 10.4 L (12.0-16.0) g/dl Hct 32.8 L (37.0-47.0) % MCV 71.6 L (80.0-100.0) fL MCH 22.7 L (25.0-34.0) pg MCHC 31.7 L (32.0-36.0) g/dL RDW Std Deviation (36.4-46.3) fL RDW Coeff of Shaylee 17.6 H (11.5-14.5) % Neut # (Auto) (1.40-6.50) K/uL [place] # (Auto) 0.68 H (0.11-0.59) K/uL Chloride (98-107) mmol/L Carbon Dioxide 19 L (21-32) mmol/L Anion Gap 15 H (3-11) BUN/Creatinine Ratio 9.8 L (10-20) Magnesium (1.7-2.4) mg/dl AST 45 H (13-39) U/L Urine Appearance Turbid A (Clear) Ur Specific [place] 1.035 H (1.000-1.030) Urine Protein Trace H (Negative) Urine Ketones 2+ H (Negative) U Epithel Cells (Auto) 20-30 H (0-5) /lpf Gastric Occult Blood Positive A (Negative) U Marijuana (THC) Screen Pos H (Neg) 04/02/23 04/03/23 Range/Units 23:52 03:55 RBC 4.18 L (4.20-5.40) M/uL Hgb 10.3 L 9.7 L (12.0-16.0) g/dl Hct 31.9 L 30.2 L (37.0-47.0) % MCV 72.2 L (80.0-100.0) fL MCH 23.2 L (25.0-34.0) pg MCHC (32.0-36.0) g/dL RDW Std Deviation 46.7 H (36.4-46.3) fL RDW Coeff of Shaylee 18.0 H (11.5-14.5) % Neut # (Auto) 7.17 H (1.40-6.50) K/uL [place] # (Auto) 0.85 H (0.11-0.59) K/uL Chloride 108 H (98-107) mmol/L Carbon Dioxide 20 L (21-32) mmol/L Anion Gap 12 H (3-11) BUN/Creatinine Ratio 8.2 L (10-20) Magnesium 1.6 L (1.7-2.4) mg/dl AST (13-39) U/L Urine Appearance (Clear) Ur Specific [place] (1.000-1.030) Urine Protein (Negative) Urine Ketones (Negative) U Epithel Cells (Auto) (0-5) /lpf Gastric Occult Blood (Negative) U Marijuana (THC) Screen (Neg) Diagnostic Findings Abdomen/Pelvis CT 04/02/23 19:08 CT SCAN OF THE ABDOMEN AND PELVIS WITH IV CONTRAST CLINICAL HISTORY: Epigastric abdominal pain. Vomiting. COMPARISON STUDY: No priors. TECHNIQUE: Following the IV administration of 84 cc of Optiray 320, CT scan of the abdomen and pelvis is performed from the lung bases to the proximal femora. Images are reviewed in the axial, sagittal, and coronal planes. IV contrast was administered without complication. A dose lowering technique was utilized adhering to the principles of ALARA. CT DOSE: 822.53 mGy.cm FINDINGS: Lung bases: The heart is normal in size and without pericardial effusion. The lung bases are clear. Liver: The contrast-enhanced liver is normal in size, contour, and attenuation. Fatty infiltration is seen adjacent to the falciform ligament. There is no intrahepatic biliary ductal dilatation. The hepatic veins and portal veins are patent. Gallbladder: Unremarkable. Spleen: Normal in size and attenuation. Pancreas: Unremarkable. Adrenal glands: Unremarkable. Kidneys: The contrast enhanced kidneys are normal in size and without hydronephrosis. The kidneys enhance symmetrically. Abdominal vasculature: The abdominal aorta is normal in course and caliber. Bowel: There is no bowel obstruction. The appendix is well-visualized and normal. Peritoneum: There is no intraperitoneal free air or abdominal ascites. There is a small fat-containing umbilical hernia. Lymphadenopathy: None. Pelvic viscera: The bladder, uterus, and adnexa are normal as visualized noting bilateral ovarian follicles. There is trace free fluid in the cul-de-sac. Skeletal structures: No lytic or blastic lesions are seen. IMPRESSION: 1. No acute infectious or inflammatory findings are identified in the abdomen or pelvis. 2. Trace free fluid in the cul-de-sac is nonspecific and likely physiologic. ACT 112: Negative or not required by law. Electronically signed by: Nilesh Canales M.D. 04/02/2023 8:38 PM Chest X-Ray 04/02/23 19:08 SINGLE VIEW CHEST CLINICAL HISTORY: Vomiting FINDINGS: An AP, portable, upright chest radiograph is obtained. No prior studies are available for comparison at the time of dictation. The cardiomediastinal silhouette is unremarkable. The lungs and pleural spaces are clear. No pneumothorax is seen. The bony thorax is grossly intact. IMPRESSION: No active disease in the chest. ACT 112: Negative or not required by law. Electronically signed by: Nilesh Canales M.D. 04/02/2023 8:35 PM PG Care Time/CCT Total # of Minutes Spent Total Time Spent with Patient: Total time spent is greater than 50% in coordination of care (as documented) at patient's floor/unit and/or counseling patient: Coding Level of Care Code 47602 SUB INP/OBS CARE 2/35MIN Diagnoses Nausea & vomiting R11.2 Influenza A J10.1 Adenovirus infection B34.0 Acute anxiety F41.9 Anemia D64.9 Acute GI bleeding K92.2
[2023-04-03] MEDS: SERTRALINE HCL 50 MG TABLET PO SCH (18:21)
[2023-04-03] MEDS: PANTOprazole 40 MG in SYRINGE 0 ML IV SCH (20:24)
[2023-04-03] MEDS ORDERED: PROCHLORPERAZINE 10 MG in SYRINGE 8 ML IV ONE (22:15)
[2023-04-04] MEDS: PROMETHAZINE HCL 12.5 MG in SODIUM CHLORIDE 0.9% 50 ML IV PRN (00:41)
[2023-04-04] MEDS: ONDANSETRON INJ 2 MG/ML 2 ML VIAL IV PRN ×5 (02:31→21:08)
[2023-04-04] MEDS: SODIUM CHLORIDE 0.9% 1,000 ML IV SCH ×2 (05:56→17:17)
--- NOTE | 2023-04-04 07:08 | Gastroenterology Progress Note ---
Date of Service April 04, 2023 Assessment & Plan (1) Nausea & vomiting: Plan: Continues with vomiting but no hematemesis. Hopefully this will settle down soon. Would focus on symptomatic treatment now. With active viral infection do not see need for EGD Admission and Anticipated Discharge Date Admission Date: April 02, 2023 Subjective Got better yesterday but vomiting now. Able to hold down liquids though. No more blood in emesis Physical Exam Physical Exam: actively retching as I see her Constitutional: WD/WN, vitals as above Results & Data Vital Signs (Past 12 Hours) Vital Signs Temp Pulse Resp BP Pulse Ox O2 Del Method 04/03/23 19:48 36.9 C 59 L 18 136/77 100 Room Air
[2023-04-04 07:47] LABS: Hematocrit (blood only) 32.4 % (37.0-47.0); Hemoglobin 10.4 g/dl (12.0-16.0); Mean Corpuscular Hgb Conc 32.1 g/dL (32.0-36.0); Mean Corpuscular Volume 71.5 fL (80.0-100.0); Mean Platelet Volume 10.3 fL (9.4-12.4); Platelet Count 189 K/uL (130-400); RDW Standard Deviation 46.4 fL (36.4-46.3); Red Blood Count 4.53 M/uL (4.20-5.40); White Blood Count 6.73 K/ul (4.8-10.8)
[2023-04-04] MEDS: MAGNESIUM SULFATE / D5W 1 GM/100 ML BAG IV SCH ×3 (07:57→11:52)
[2023-04-04 08:03] LABS: BUN Creatinine Ratio 10.5 (10-20); Calcium 9.2 mg/dl (8.6-10.3); Creatinine Clr Calc Pharmacy 111.2 ml/min; Est GFR (African American) 131.8 ml/min; Est GFR (Non-African American) 113.7 ml/min; Potassium 3.5 mmol/L (3.5-5.1)
[2023-04-04] MEDS: PANTOprazole 40 MG in SYRINGE 0 ML IV SCH ×2 (08:28→21:05)
--- NOTE | 2023-04-04 14:20 | Hospitalist Progress Note ---
Date of Service April 04, 2023 Assessment & Plan (1) Nausea & vomiting: Plan: 17 yo female with PMHx GERD, anxiety, and ADHD presents with vomiting. #Intractable Vomiting -presented with 5 days of nonspecific symptoms with persistent N/V. Tested positive for adenovirus and influenza which are the most likely culprit. Minimal alcohol use with last drink over 2 weeks ago. Has only tried marijuana once in the distant past. She did recently start Concerta ~2 weeks ago however it would be less likely for side effects related to medication to begin 1 week after initiation. -CXR and CT A/P unremarkable -UDS positive for marijuana -supportive care Continue IV fluids Patient has been gagging, retching, vomiting her clear liquid diet. Discontinue clear liquid diet. Will make her n.p.o. Continue antinausea medications including Zofran and Phenergan #Anemia, acute -Hgb 13 (04/01/23). Appears to be trending down, 10.4 on this admission. +gastric occult. Possibly dilutional since she has received 4L IVF since lat night. Cannot exclude GI bleed, suspicion for Maddy Navarro tear 2/2 vomiting. -CT A/P unremarkable GI consulted. Not convinced that this is active GI bleed specially in the absence of any bowel movement Hemoglobin stable Continue IV Protonix twice daily N.p.o. due to active vomiting Bradycardia Most likely secondary to vasovagal from vomiting Monitor Avoid medications that can cause bradycardia including Benadryl and Ativan #Anxiety -Discontinued Ativan #ADHD -started concerta 2 weeks ago. Unclear if attributing to intractable vomiting. Hold for now. DVT ppx: ambulation; avoid chemical due to possible GI bleed FEN/GI: N.p.o. Code Status: full (2) Influenza A: Plan: Supportive care at this (3) Adenovirus infection: Plan: Supportive care at this (4) Acute anxiety: Plan: Supportive care at this time (5) Anemia: Plan: As discussed above and resident physician (6) Acute GI bleeding: Plan: As discussed above and resident physician. Continue IV Protonix. Plan Spoke to mother at the bedside Admission and Anticipated Discharge Date Admission Date: April 02, 2023 Subjective Patient continues to have gagging, retching, vomiting. She has been vomiting out all meals. Discontinued clear liquid diet and made her n.p.o. Review of Systems Review of Systems: All systems reviewed & are unremarkable except as noted in Subjective Physical Exam Physical Exam: General: Awake, conversant Heart: S1, S2/regular rate and rhythm, no murmur rubs or gallops Lungs: Clear to auscultation bilaterally. Normal effort Abdomen: Soft/nontender/nondistended. No hepatosplenomegaly Extremities: No clubbing/cyanosis. No edema Behavior: Appropriate, cooperative Results & Data Results & Data Vital Signs (Past 12 Hours) Vital Signs Temp Pulse Resp BP Pulse Ox O2 Del Method 04/04/23 07:55 36.6 C 48 L 17 143/84 H 97 Room Air Laboratory Results Abnormal lab results 04/04/23 Range/Units 07:30 Hgb 10.4 L (12.0-16.0) g/dl Hct 32.4 L (37.0-47.0) % MCV 71.5 L (80.0-100.0) fL MCH 23.0 L (25.0-34.0) pg RDW Std Deviation 46.4 H (36.4-46.3) fL RDW Coeff of Shaylee 18.0 H (11.5-14.5) % Carbon Dioxide 19 L (21-32) mmol/L Anion Gap 14 H (3-11) PG Care Time/CCT Total # of Minutes Spent Total Time Spent with Patient: Total time spent is greater than 50% in coordination of care (as documented) at patient's floor/unit and/or counseling patient: Coding Level of Care Code 98490 SUB INP/OBS CARE 2/35MIN Diagnoses Nausea & vomiting R11.2 Influenza A J10.1 Adenovirus infection B34.0 Acute anxiety F41.9 Anemia D64.9 Acute GI bleeding K92.2
[2023-04-04] MEDS: SERTRALINE HCL 50 MG TABLET PO SCH (16:57)
[2023-04-04] MEDS ORDERED: diphenhydrAMINE Capsule 25 MG CAP PO ONE (21:57)
--- NOTE | 2023-04-04 22:41 | Electrocardiogram Report ---
Test Reason : Blood Pressure : / mmHG Vent. Rate : 057 BPM Atrial Rate : 057 BPM P-R Int : 116 ms QRS Dur : 076 ms QT Int : 462 ms P-R-T Axes : 014 059 037 degrees QTc Int : 449 ms Sinus bradycardia Otherwise normal ECG No previous ECGs available Confirmed by Syed Florez ([id number]) on 04/04/2023 10:40:47 PM Referred By: REFERRED SELF Confirmed By:Syed Florez
[2023-04-05] MEDS: ONDANSETRON INJ 2 MG/ML 2 ML VIAL IV PRN ×6 (01:16→22:12)
[2023-04-05] MEDS: SODIUM CHLORIDE 0.9% 1,000 ML IV SCH ×2 (03:25→12:55)
[2023-04-05 07:28] LABS: Hematocrit (blood only) 30.9 % (37.0-47.0); Mean Corpuscular Hemoglobin 22.9 pg (25.0-34.0); Mean Corpuscular Hgb Conc 32.4 g/dL (32.0-36.0); Mean Corpuscular Volume 70.7 fL (80.0-100.0); Mean Platelet Volume 11.3 fL (9.4-12.4); Platelet Count 178 K/uL (130-400); RDW Coefficient of Variation 18.2 % (11.5-14.5); RDW Standard Deviation 46.2 fL (36.4-46.3); Red Blood Count 4.37 M/uL (4.20-5.40); White Blood Count 6.46 K/ul (4.8-10.8)
[2023-04-05 07:29] LABS: BUN Creatinine Ratio 13.9 (10-20); Calcium 8.5 mg/dl (8.6-10.3); Est GFR (African American) 125.8 ml/min; Est GFR (Non-African American) 108.5 ml/min; Potassium 3.3 mmol/L (3.5-5.1)
[2023-04-05] MEDS: PANTOprazole 40 MG in SYRINGE 0 ML IV SCH ×2 (09:01→21:04)
[2023-04-05] MEDS: PROMETHAZINE HCL 12.5 MG in SODIUM CHLORIDE 0.9% 50 ML IV PRN ×3 (11:53→20:35)
[2023-04-05 13:03] LABS: Marijuana Quant, GCMS Urine 2782 ng/mL (<5)
--- NOTE | 2023-04-05 14:45 | Gastroenterology Progress Note ---
Date of Service April 05, 2023 Assessment & Plan (1) Nausea & vomiting: Plan: She seems better at least from the fact that this is the first time I have seen her not retching violently. Even when she has been NPO in the past. Hopefully things are improving. Once again I have nothing to add Admission and Anticipated Discharge Date Admission Date: April 05, 2023 Subjective First time I have visited that she wasn't actively retching. Mom says she still has dry heaves. She doesn't really say if she is better or not. Physical Exam Physical Exam: She looks well today Constitutional: WD/WN, vitals as above Results & Data Vital Signs (Past 12 Hours) Vital Signs Temp Pulse Resp BP Pulse Ox O2 Del Method 04/05/23 08:33 36.9 C 42 L 18 130/69 95 Room Air 04/05/23 08:30 Room Air
--- NOTE | 2023-04-05 15:04 | Hospitalist Progress Note ---
Date of Service April 05, 2023 Assessment & Plan (1) Nausea & vomiting: Plan: 17 yo female with PMHx GERD, anxiety, and ADHD presents with vomiting. #Intractable Vomiting -presented with 5 days of nonspecific symptoms with persistent N/V. Tested positive for adenovirus and influenza which are the most likely culprit. Minimal alcohol use with last drink over 2 weeks ago. Has only tried marijuana once in the distant past. She did recently start Concerta ~2 weeks ago however it would be less likely for side effects related to medication to begin 1 week after initiation. -CXR and CT A/P unremarkable -UDS positive for marijuana -supportive care Continue IV fluids. Add D5 into IV fluid Patient continues to retch, gag, vomit Suspect a component of anxiety Continue antinausea medications including Zofran and Phenergan as needed Continue n.p.o. until not vomiting anymore #Anemia, acute -Hgb 13 (04/01/23). Appears to be trending down, 10.4 on this admission. +gastric occult. Possibly dilutional since she has received 4L IVF since lat night. Cannot exclude GI bleed, suspicion for Maddy Navarro tear 2/2 vomiting. -CT A/P unremarkable GI consulted. Not convinced that this is active GI bleed specially in the absence of any bowel movement Hemoglobin stable Continue IV Protonix twice daily N.p.o. due to active vomiting Bradycardia Most likely secondary to vasovagal from vomiting Monitor Avoid medications that can cause bradycardia including Benadryl and Ativan #Anxiety -Discontinued Ativan #ADHD -started concerta 2 weeks ago. Unclear if attributing to intractable vomiting. Hold for now. DVT ppx: ambulation; avoid chemical due to possible GI bleed FEN/GI: N.p.o. Code Status: full (2) Influenza A: Plan: Supportive care at this (3) Adenovirus infection: Plan: Supportive care at this (4) Acute anxiety: Plan: Supportive care at this time (5) Anemia: Plan: As discussed above and resident physician (6) Acute GI bleeding: Plan: As discussed above and resident physician. Continue IV Protonix. Plan Spoke to mother at the bedside Admission and Anticipated Discharge Date Admission Date: April 05, 2023 Subjective The patient was initially gagging and retching when I walked into the room. I did not see much come out. She then got very anxious and worked herself up. She continued to gag. She keeps requesting something to help her sleep. Per nurse, she was sleeping earlier this morning. When her mother came to the room, she started with the vomiting and gagging again. The patient was explained that anything to help her sleep will also lower her heart rate. Her heart rate is still low due to vasovagal bradycardia from the constant gagging. Review of Systems Review of Systems: All systems reviewed & are unremarkable except as noted in Subjective Physical Exam Physical Exam: General: Awake, conversant Heart: S1, S2/regular rate and rhythm, no murmur rubs or gallops Lungs: Clear to auscultation bilaterally. Normal effort Abdomen: Soft/nontender/nondistended. No hepatosplenomegaly Extremities: No clubbing/cyanosis. No edema Behavior: Appropriate, cooperative Results & Data Results & Data Vital Signs (Past 12 Hours) Vital Signs Temp Pulse Resp BP Pulse Ox O2 Del Method 04/05/23 08:33 36.9 C 42 L 18 130/69 95 Room Air 04/05/23 08:30 Room Air PG Care Time/CCT Total # of Minutes Spent Total Time Spent with Patient: Total time spent is greater than 50% in coordination of care (as documented) at patient's floor/unit and/or counseling patient: Coding Level of Care Code 24360 SUB INP/OBS CARE 2/35MIN Diagnoses Nausea & vomiting R11.2 Influenza A J10.1 Adenovirus infection B34.0 Acute anxiety F41.9 Anemia D64.9 Acute GI bleeding K92.2
[2023-04-05] MEDS: D5W AND NSS 1,000 ML IV SCH (15:24)
[2023-04-05] MEDS: SERTRALINE HCL 50 MG TABLET PO SCH (20:36)
[2023-04-05] MEDS ORDERED: diphenhydrAMINE Capsule 25 MG CAP PO ONE (20:45)
[2023-04-06] MEDS: D5W AND NSS 1,000 ML IV SCH (01:21)
[2023-04-06] MEDS: ONDANSETRON INJ 2 MG/ML 2 ML VIAL IV PRN ×3 (03:07→20:52)
[2023-04-06] MEDS: PROMETHAZINE HCL 12.5 MG in SODIUM CHLORIDE 0.9% 50 ML IV PRN ×3 (04:24→22:11)
[2023-04-06 07:23] LABS: Hematocrit (blood only) 32.1 % (37.0-47.0); Hemoglobin 10.7 g/dl (12.0-16.0); Mean Corpuscular Hemoglobin 23.3 pg (25.0-34.0); Mean Corpuscular Hgb Conc 33.3 g/dL (32.0-36.0); Mean Corpuscular Volume 69.9 fL (80.0-100.0); Mean Platelet Volume 10.8 fL (9.4-12.4); Platelet Count 210 K/uL (130-400); RDW Coefficient of Variation 17.6 % (11.5-14.5); RDW Standard Deviation 43.9 fL (36.4-46.3); Red Blood Count 4.59 M/uL (4.20-5.40); White Blood Count 7.64 K/ul (4.8-10.8)
[2023-04-06] MEDS: PANTOprazole 40 MG in SYRINGE 0 ML IV SCH ×2 (08:07→20:43)
[2023-04-06 09:38] LABS: BUN Creatinine Ratio 9.2 (10-20); Calcium 8.5 mg/dl (8.6-10.3); Creatinine Clr Calc Pharmacy 97.2 ml/min; Est GFR (African American) 111.9 ml/min; Est GFR (Non-African American) 96.6 ml/min; Potassium 3.3 mmol/L (3.5-5.1)
[2023-04-06] MEDS: POTASSIUM CHLORIDE 40 MEQ in D5W AND NSS 1,000 ML IV SCH ×2 (10:30→22:17)
[2023-04-06] MEDS ORDERED: COUGH DROP (SUGAR FREE) LOZ 24 LOZ/1 BOX BUCCAL ONE (12:17)
--- NOTE | 2023-04-06 14:31 | Gastroenterology Progress Note ---
Date of Service April 06, 2023 Assessment & Plan Admission and Anticipated Discharge Date Admission Date: April 05, 2023 Subjective Still retching. No bleeding. Does not feel fluish at all anymore. Denies any anxiety issues at all or unusual stresses Physical Exam Physical Exam: she looks well Constitutional: WD/WN, vitals as above Results & Data Vital Signs (Past 12 Hours) Vital Signs Temp Pulse Resp BP Pulse Ox O2 Del Method 04/06/23 08:01 37.1 C 47 L 16 140/68 99 Room Air
--- NOTE | 2023-04-06 14:35 | Gastroenterology Progress Note ---
Date of Service April 06, 2023 Assessment & Plan (1) Nausea & vomiting: Plan: This is continuing on longer than it really should be. She asked to rule anything else out so I will do EGD tomorrow. 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 Will start metoclopramide Admission and Anticipated Discharge Date Admission Date: April 05, 2023 Subjective Still retching. No bleeding. Does not feel fluish at all anymore. Denies any anxiety issues at all or unusual stresses Physical Exam Physical Exam: She looks well Constitutional: WD/WN, vitals as above Results & Data Vital Signs (Past 12 Hours) Vital Signs Temp Pulse Resp BP Pulse Ox O2 Del Method 04/06/23 08:01 37.1 C 47 L 16 140/68 99 Room Air
[2023-04-06] MEDS ORDERED: ACETAMINOPHEN 325 MG TAB PO ONE (16:40)
--- NOTE | 2023-04-06 17:44 | Hospitalist Progress Note ---
Date of Service April 06, 2023 Assessment & Plan (1) Nausea & vomiting: Plan: 17 yo female with PMHx GERD, anxiety, and ADHD presents with vomiting. #Intractable Vomiting -presented with 5 days of nonspecific symptoms with persistent N/V. Tested positive for adenovirus and influenza which are the most likely culprit. Minimal alcohol use with last drink over 2 weeks ago. Has only tried marijuana once in the distant past. She did recently start Concerta ~2 weeks ago however it would be less likely for side effects related to medication to begin 1 week after initiation. -CXR and CT A/P unremarkable -UDS positive for marijuana -supportive care Continue IV fluids. 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 until not vomiting anymore #Anemia, acute -Hgb 13 (04/01/23). Appears to be trending down, 10.4 on this admission. +gastric occult. Possibly dilutional since she has received 4L IVF since lat night. Cannot exclude GI bleed, suspicion for Maddy Navarro tear 2/2 vomiting. -CT A/P unremarkable GI consulted. Not convinced that this is active GI bleed specially in the absence of any bowel movement Hemoglobin stable Continue IV Protonix twice daily N.p.o. due to active vomiting Bradycardia Most likely secondary to vasovagal from vomiting Monitor Avoid medications that can cause bradycardia including Benadryl and Ativan #Anxiety -Discontinued Ativan Consult psychiatry for medication management and also to help find the etiology of vomiting #ADHD -started concerta 2 weeks ago. Unclear if attributing to intractable vomiting. Hold for now. DVT ppx: ambulation; avoid chemical due to possible GI bleed FEN/GI: N.p.o. Code Status: full (2) Influenza A: Plan: Supportive care at this (3) Adenovirus infection: Plan: Supportive care at this (4) Acute anxiety: Plan: Supportive care at this time (5) Anemia: Plan: As discussed above and resident physician (6) Acute GI bleeding: Plan: As discussed above and resident physician. Continue IV Protonix. Plan Spoke to mother at the bedside Admission and Anticipated Discharge Date Admission Date: April 05, 2023 Subjective Patient appeared calm this morning. She had a good night and slept well. She was offered a diet and she agreed. However soon after her clear liquid diet, she threw up again. She started the retching cycle again. She was made n.p.o. after that. Psychiatry consulted. Noted that GI plans on EGD tomorrow. Review of Systems Review of Systems: All systems reviewed & are unremarkable except as noted in Subjective Physical Exam Physical Exam: General: Awake, conversant Heart: S1, S2/regular rate and rhythm, no murmur rubs or gallops Lungs: Clear to auscultation bilaterally. Normal effort Abdomen: Soft/nontender/nondistended. No hepatosplenomegaly Extremities: No clubbing/cyanosis. No edema Behavior: Appropriate, cooperative Results & Data Results & Data Vital Signs (Past 12 Hours) Vital Signs Temp Pulse Resp BP Pulse Ox O2 Del Method 04/06/23 16:41 36.6 C 50 L 16 152/87 H 99 Room Air 04/06/23 08:01 37.1 C 47 L 16 140/68 99 Room Air Laboratory Results Abnormal lab results 04/06/23 04/06/23 Range/Units 06:54 06:56 Hgb 10.7 L (12.0-16.0) g/dl Hct 32.1 L (37.0-47.0) % MCV 69.9 L (80.0-100.0) fL MCH 23.3 L (25.0-34.0) pg RDW Coeff of Shaylee 17.6 H (11.5-14.5) % Potassium 3.3 L (3.5-5.1) mmol/L Chloride 108 H (98-107) mmol/L BUN/Creatinine Ratio 9.2 L (10-20) Glucose 104 H (70-99(Fasting)) mg/dl Calcium 8.5 L (8.6-10.3) mg/dl PG Care Time/CCT Total # of Minutes Spent Total Time Spent with Patient: Total time spent is greater than 50% in coordination of care (as documented) at patient's floor/unit and/or counseling patient: Coding Level of Care Code 29705 SUB INP/OBS CARE 2/35MIN Diagnoses Nausea & vomiting R11.2 Influenza A J10.1 Adenovirus infection B34.0 Acute anxiety F41.9 Anemia D64.9 Acute GI bleeding K92.2
[2023-04-06] MEDS: METOCLOPRAMIDE HCL 10 MG TABLET PO SCH (18:03)
[2023-04-06] MEDS: SERTRALINE HCL 50 MG TABLET PO SCH (18:04)
[2023-04-06] MEDS ORDERED: diphenhydrAMINE Capsule 25 MG CAP PO ONE (21:07)
[2023-04-07] MEDS: METOCLOPRAMIDE HCL 10 MG TABLET PO SCH ×5 (01:00→23:11)
[2023-04-07 06:55] LABS: Hematocrit (blood only) 32.5 % (37.0-47.0); Hemoglobin 10.4 g/dl (12.0-16.0); Mean Corpuscular Hemoglobin 22.7 pg (25.0-34.0); Mean Corpuscular Volume 70.8 fL (80.0-100.0); Platelet Count 234 K/uL (130-400); RDW Coefficient of Variation 18.2 % (11.5-14.5); RDW Standard Deviation 44.8 fL (36.4-46.3); Red Blood Count 4.59 M/uL (4.20-5.40); White Blood Count 7.04 K/ul (4.8-10.8)
[2023-04-07] MEDS: PANTOprazole 40 MG in SYRINGE 0 ML IV SCH (08:11)
[2023-04-07] MEDS: ONDANSETRON INJ 2 MG/ML 2 ML VIAL IV PRN ×3 (08:20→22:11)
[2023-04-07] MEDS: POTASSIUM CHLORIDE 40 MEQ in D5W AND NSS 1,000 ML IV SCH (09:26)
[2023-04-07] MEDS: PROMETHAZINE HCL 12.5 MG in SODIUM CHLORIDE 0.9% 50 ML IV PRN ×2 (10:49→20:18)
[2023-04-07] MEDS ORDERED: LIDOCAINE 2% 2 ML VIAL/AMP(20MG/ML) INFIL ONE ×2 (11:02→14:45)
[2023-04-07] MEDS ORDERED: fentaNYL citrate PF 100 MCG/2 ML VIAL ONE ×2 (11:02→14:19)
[2023-04-07] MEDS ORDERED: PROPOFOL IV EMULSION 10 MG/ML 20 ML VIAL IV ONE ×2 (11:02→14:45)
[2023-04-07] MEDS ORDERED: bisacodyL 10 MG SUPP PR STA (13:47)
[2023-04-07] MEDS ORDERED: fentaNYL citrate PF 100 MCG/2 ML VIAL IV PRN (14:17)
[2023-04-07] MEDS ORDERED: ePHEDrine sulfate 50 MG/ML AMP IV PRN (14:17)
[2023-04-07] MEDS ORDERED: ONDANSETRON INJ 2 MG/ML 2 ML VIAL IV PRN (14:17)
[2023-04-07] MEDS ORDERED: ATROPINE SULFATE 0.1 MG/ML 10ML SYR IV PRN (14:17)
--- NOTE | 2023-04-07 14:17 | Anesthesiology Consultation ---
Date of Service April 07, 2023 Assessment & Plan ASA ASA2 Proposed Anesthesia Anesthesia Type: General Risk / Benefits Reviewed With: PT / POA / Parent / Guardian, Accepts Plan and Informed Consent Obtained History Surgery Operation Date: 04/07/23 13:40 Proposed Procedures p Esophagogastroduodenoscopy - Marilee Villa Jr, MD Operation Date: 04/07/23 16:30 Proposed Procedures p Esophagogastroduodenoscopy Dr. Villa - Marilee Villa Jr, MD Height/Weight Height: 5 ft 4 in Weight: 65.9 kg Allergies Allergy/AdvReac Type Severity Reaction Status Date / Time No Known Allergies Allergy Unverified 04/02/23 08:45 Medications Home Medications Medication Instructions Recorded Confirmed Last Taken hydroxyzine pamoate 50 mg capsule 50 mg PO Q8H PRN sleep/anxiety #15 01/26/23 04/02/23 2 Weeks Ago (Vistaril) caps ~03/19/23 lorazepam 1 mg tablet 1 mg PO BID PRN anxiety #6 tabs 01/26/23 04/02/23 2 Weeks Ago ~03/19/23 ferrous sulfate 325 mg (65 mg 325 mg PO QAM 04/02/23 04/02/23 04/01/23 iron) tablet methylphenidate HCl 18 mg 18 mg PO QAM 04/02/23 04/02/23 04/01/23 tablet,extended release 24 hr (Concerta) prochlorperazine maleate 10 mg 10 mg PO Q6H PRN nausea and 04/02/23 Unknown tablet (Compazine) vomiting #10 tabs Active Medications Generic Name Dose Route Start Last Admin Trade Name Freq PRN Reason Stop Dose Admin Promethazine HCl 12.5 mg/ 50.5 mls @ 202 mls/hr 04/02/23 23:09 04/07/23 11:04 Sodium Chloride IV 05/02/23 23:08 Infused Q4H PRN Infusion Nausea And Vomiting Pantoprazole Sodium 40 mg/ 10 mls @ 5 mls/min 04/03/23 21:00 04/07/23 08:11 Syringe IV 05/03/23 20:59 5 mls/min BID DAVID Administration Potassium Chloride 40 meq/ 1,020 mls @ 100 mls/hr 04/06/23 09:53 04/07/23 09:26 Dextrose/Sodium Chloride IV 05/05/23 14:59 100 mls/hr .[id number] DAVID Administration Metoclopramide HCl 10 mg 04/06/23 18:00 04/07/23 11:25 Metoclopramide Hcl 10 Mg Tablet PO 05/06/23 17:59 10 mg Q6 DAVID Administration Ondansetron HCl 4 mg 04/02/23 23:09 04/07/23 08:20 Ondansetron Inj 2 Mg/Ml 2 Ml Vial IV 05/02/23 23:08 4 mg Q4H PRN Administration Nausea Sertraline HCl 50 mg 04/03/23 18:00 04/06/23 18:04 Sertraline Hcl 50 Mg Tablet PO 05/03/23 17:59 50 mg 1800 DAVID Administration NPO Date Last Intake of Fluids: 03/29/23 Date Last Intake of Solids: 03/29/23 Past Medical History Medical History No pertinent past medical history Exercise / Class Metabolic Activity II 4-5 Yardwork/Stairs/Walk up hill Past Surgical History Surgical History History of nasal surgery History of ankle surgery Past Anesthesia History No Hx of Anesthesia Complications and No Family Hx of Anesthesia Complications History of PONV No Hx of PONV and No Hx of Motion Sickness Social History Smoking Status: Never smoker Hx Alcohol Use: No Hx Substance Use: No Review of Systems denies fever/cough/ colds/ chest pain/ SOB/ OGLDIE denies GOLDIE Physical Exam Vital Signs Last Vital Signs Temp 36.8 C 04/07/23 14:04 Pulse 50 L 04/07/23 14:04 Resp 20 04/07/23 14:04 BP 152/86 H 04/07/23 14:04 Pulse Ox 100 04/07/23 14:04 O2 Del Method Room Air 04/07/23 14:04 ENMT Mouth: no TMJ abnormality and no dentition abnormality Thyromental Distance: > or= 3.5 Finger Breadths Mallampati Class: II Neck neck extension not limited Respiratory normal respiratory effort; no respiratory distress Auscultation: lungs clear to auscultation bilaterally Cardiovascular Rate/Rhythm: regular rate and regular rhythm Neurologic moves all extremities Psychiatric Orientation: alert and oriented x 3 Testing Laboratory Results 04/07/23 06:11 04/06/23 06:54 Urine Color Yellow 04/02/23 05:00 Urine Appearance Turbid (Clear) A 04/02/23 05:00 Urine pH 6.5 (4.5-7.5) 04/02/23 05:00 Ur Specific [place] 1.035 (1.000-1.030) H 04/02/23 05:00 Urine Protein Trace (Negative) H 04/02/23 05:00 Urine Glucose (UA) Negative (Negative) 04/02/23 05:00 Urine Ketones 2+ (Negative) H 04/02/23 05:00 Urine Nitrite Negative (Negative) 04/02/23 05:00 Ur Leukocyte Esterase Negative (Negative) 04/02/23 05:00 Urine WBC (Auto) 1-5 /hpf (0-5) 04/02/23 05:00 Urine RBC (Auto) 0-4 /hpf (0-4) 04/02/23 05:00 U Hyaline Cast (Auto) 1-5 /lpf (0-5) 04/02/23 05:00 U Epithel Cells (Auto) 20-30 /lpf (0-5) H 04/02/23 05:00 Urine Bacteria (Auto) Negative (Negative) 04/02/23 05:00 Blood Type O Positive 04/02/23 21:12 Antibody Screen NEGATIVE 04/02/23 21:12
[2023-04-07] MEDS ORDERED: MIDAZOLAM HCL 1 MG/ML 2ML VIAL ONE (14:19)
--- NOTE | 2023-04-07 14:22 | History & Physical Report ---
Date of Service April 07, 2023 Assessment & Plan (1) Nausea & vomiting: Plan: Persistent vomiting. Here for EGd. Procedure and risks discussed. She agrees Admission and Anticipated Discharge Date Admission Date: April 05, 2023 History of Present Illness Chief Complaint: vomiting Primary Care Provider: [facility] 17 year old with ten days of vomiting. EGD planned Allergies Allergy/AdvReac Type Severity Reaction Status Date / Time No Known Allergies Allergy Unverified 04/02/23 08:45 Home Medications Medication Instructions Recorded Confirmed Type hydroxyzine pamoate 50 mg capsule 50 mg PO Q8H PRN sleep/anxiety #15 01/26/23 04/02/23 Rx (Vistaril) caps lorazepam 1 mg tablet 1 mg PO BID PRN anxiety #6 tabs 01/26/23 04/02/23 Rx ferrous sulfate 325 mg (65 mg 325 mg PO QAM 04/02/23 04/02/23 History iron) tablet methylphenidate HCl 18 mg 18 mg PO QAM 04/02/23 04/02/23 History tablet,extended release 24 hr (Concerta) prochlorperazine maleate 10 mg 10 mg PO Q6H PRN nausea and 04/02/23 Rx tablet (Compazine) vomiting #10 tabs Past Med/Surg History Medical History No pertinent past medical history Surgical History History of nasal surgery History of ankle surgery Social History Smoking Status: Never smoker Hx Alcohol Use: No Hx Substance Use: No Preferred Language: Haitian Communication Ability: Effective Relationship Manager Required: No Beliefs That Will Affect Care: None Current Living Situation: Other Current Living Situation Comment: apartment with 3 other people Other Information That Helps Us Care for You: No Feels Safe at Home: Yes Safety Concerns: Feels Safe At This Time Assistive Devices: None Physical Exam Constitutional: WD/WN, vitals as above Respiratory: normal respiratory effort, lungs clear to auscultation Cardiovascular: RRR, no murmur, no edema Gastrointestinal (Abdomen): normal bowel sounds, soft, nontender, no hepatosplenomegaly ASA Classification ASA ASA2 Results & Data Vital Signs (Past 12 Hours) Vital Signs Temp Pulse Pulse Resp BP Pulse Ox O2 Del Method 04/07/23 14:04 36.8 C 50 L 20 152/86 H 100 Room Air 04/07/23 07:59 36.5 C 58 L 16 159/97 H 100 Room Air
[2023-04-07] MEDS: LACTATED RINGER'S 1,000 ML IV SCH (14:28)
[2023-04-07] MEDS ORDERED: SUCCINYLCHOLINE CHLORIDE 20 MG/ML 10 ML VIAL IV ONE (14:45)
[2023-04-07] MEDS ORDERED: DEXAMETHASONE SOD INJ 4 MG/ML VIAL ONE (14:45)
--- NOTE | 2023-04-07 14:47 | GI REPORT ---
Patient Name: Candy Johnson Procedure Date: 04/07/2023 2:25 PM Date of : 2005 Admit Type: Inpatient Age: 17 Gender: Female Attending MD: Marilee Villa MD, Procedure: Upper GI endoscopy Providers: Marilee Villa MD Referring MD: Jairo Sullivan Md Indications: Persistent vomiting Medicines: General Anesthesia Complications: No immediate complications. Estimated Blood Loss: Estimated blood loss: none. Procedure: Pre-Anesthesia Assessment: - Prior to the procedure, a History and Physical was performed, and patient medications and allergies were reviewed. The patient's tolerance of previous anesthesia was also reviewed. The risks and benefits of the procedure and the sedation options and risks were discussed with the patient. All questions were answered, and informed consent was obtained. Prior Anticoagulants: The patient has taken no anticoagulant or antiplatelet agents. ASA Grade Assessment: I - A normal, healthy patient. After reviewing the risks and benefits, the patient was deemed in satisfactory condition to undergo the procedure. After obtaining informed consent, the endoscope was passed under direct vision. Throughout the procedure, the patient's blood pressure, pulse, and oxygen saturations were monitored continuously. The Scope was introduced through the mouth, and advanced to the second part of duodenum. The upper GI endoscopy was accomplished without difficulty. The patient tolerated the procedure well. Findings: The esophagus was normal. The stomach was normal. The examined duodenum was normal. Impression: - Normal esophagus. - Normal stomach. - Normal examined duodenum. - No specimens collected. Recommendation: - Return patient to [facility] for [facility] care. Marilee Villa MD 04/07/2023 2:46:43 PM Note Initiated On: 04/07/2023 2:25 PM Number of Addenda: 0 I attest to the content of the Intraoperative Record and orders documented therein, exceptions below {[id number]}
--- NOTE | 2023-04-07 15:50 | Hospitalist Progress Note ---
Date of Service April 07, 2023 Assessment & Plan (1) Nausea & vomiting: Plan: 17 yo female with PMHx GERD, anxiety, and ADHD presents with vomiting. #Intractable Vomiting -presented with 5 days of nonspecific symptoms with persistent N/V. Tested positive for adenovirus and influenza which are the most likely culprit. Minimal alcohol use with last drink over 2 weeks ago. Has only tried marijuana once in the distant past. She did recently start Concerta ~2 weeks ago however it would be less likely for side effects related to medication to begin 1 week after initiation. -CXR and CT A/P unremarkable -UDS positive for marijuana -supportive care Continue IV fluids. 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 Started a clear liquid diet. #Anemia, acute -Hgb 13 (04/01/23). Appears to be trending down, 10.4 on this admission. +gastric occult. Possibly dilutional since she has received 4L IVF since lat night. Cannot exclude GI bleed, suspicion for Maddy Navarro tear 2/2 vomiting. -CT A/P unremarkable GI consulted. Not convinced that this is active GI bleed specially in the absence of any bowel movement Hemoglobin stable Now that EGD is negative, switch to once daily dosing of Protonix Start clear liquid diet since she is wanting to eat Bradycardia Most likely secondary to vasovagal from vomiting Monitor Avoid medications that can cause bradycardia including Benadryl and Ativan #Anxiety -Discontinued Ativan Psychiatry was consulted but the patient declined #ADHD -started concerta 2 weeks ago. Unclear if attributing to intractable vomiting. Hold for now. DVT ppx: ambulation FEN/GI: N.p.o. Code Status: full (2) Influenza A: Plan: Supportive care at this (3) Adenovirus infection: Plan: Supportive care at this (4) Acute anxiety: Plan: Supportive care at this time (5) Anemia: Plan: As discussed above and resident physician (6) Acute GI bleeding: Plan: As discussed above and resident physician. Continue IV Protonix. Plan Spoke to mother at the bedside Admission and Anticipated Discharge Date Admission Date: April 05, 2023 Subjective Per nurse, patient had a good night without any vomiting or retching. However she started vomiting again this morning. She went for an upper GI endoscopy a little bit ago. The endoscopy reports as normal. Per nurse, patient is now hungry and wishes to eat. Decided to start her on a clear liquid diet today. Review of Systems Review of Systems: All systems reviewed & are unremarkable except as noted in Subjective Physical Exam Physical Exam: General: Awake, conversant Heart: S1, S2/regular rate and rhythm, no murmur rubs or gallops Lungs: Clear to auscultation bilaterally. Normal effort Abdomen: Soft/nontender/nondistended. No hepatosplenomegaly Extremities: No clubbing/cyanosis. No edema Behavior: Appropriate, cooperative Results & Data Results & Data Vital Signs (Past 12 Hours) Vital Signs Temp Pulse Pulse Resp BP Pulse Ox O2 Del Method 04/07/23 15:15 55 L 14 118/69 98 Room Air 04/07/23 15:05 53 L 14 123/68 97 Room Air 04/07/23 14:56 36.3 C L 67 18 116/73 100 Room Air 04/07/23 14:04 36.8 C 50 L 20 152/86 H 100 Room Air 04/07/23 07:59 36.5 C 58 L 16 159/97 H 100 Room Air Laboratory Results Abnormal lab results 04/07/23 Range/Units 06:11 Hgb 10.4 L (12.0-16.0) g/dl Hct 32.5 L (37.0-47.0) % MCV 70.8 L (80.0-100.0) fL MCH 22.7 L (25.0-34.0) pg RDW Coeff of Shaylee 18.2 H (11.5-14.5) % PG Care Time/CCT Total # of Minutes Spent Total Time Spent with Patient: Total time spent is greater than 50% in coordination of care (as documented) at patient's floor/unit and/or counseling patient: Coding Level of Care Code 92461 SUB INP/OBS CARE 2/35MIN Diagnoses Nausea & vomiting R11.2 Influenza A J10.1 Adenovirus infection B34.0 Acute anxiety F41.9 Anemia D64.9 Acute GI bleeding K92.2
--- NOTE | 2023-04-07 15:52 | Anesthesiology Progress Note ---
Date of Service April 07, 2023 Anesthesia Post Procedure Vital Signs Vital Signs: Temp Pulse Pulse Resp BP Pulse Ox O2 Del Method 04/07/23 15:15 55 L 14 118/69 98 Room Air 04/07/23 15:05 53 L 14 123/68 97 Room Air 04/07/23 14:56 36.3 C L 67 18 116/73 100 Room Air 04/07/23 14:04 36.8 C 50 L 20 152/86 H 100 Room Air 04/07/23 07:59 36.5 C 58 L 16 159/97 H 100 Room Air 04/06/23 20:55 37.2 C 51 L 16 141/86 H 100 Room Air 04/06/23 16:41 36.6 C 50 L 16 152/87 H 99 Room Air Pain Intensity Other: Pain Intensity: 8 Transfer of Care Handoff Completed per policy Notes Mental Status: alert / awake / arousable and participated in evaluation Patient Amnestic to Procedure: Yes Nausea / Vomiting: adequately controlled Pain: adequately controlled Airway Patency, RR, SpO2: stable & adequate BP & HR: stable & adequate Hydration State: stable & adequate Anesthetic Complications: no major complications apparent and Pt Satisfied with anesthetic care
[2023-04-07] MEDS: SERTRALINE HCL 50 MG TABLET PO SCH (18:13)
[2023-04-08] MEDS: PROMETHAZINE HCL 12.5 MG in SODIUM CHLORIDE 0.9% 50 ML IV PRN ×2 (00:19→04:38)
[2023-04-08] MEDS: POTASSIUM CHLORIDE 40 MEQ in D5W AND NSS 1,000 ML IV SCH ×3 (00:29→14:34)
[2023-04-08] MEDS: ONDANSETRON INJ 2 MG/ML 2 ML VIAL IV PRN ×2 (02:20→10:06)
[2023-04-08] MEDS: METOCLOPRAMIDE HCL 10 MG TABLET PO SCH ×3 (06:19→18:23)
[2023-04-08] MEDS: PANTOprazole 40 MG in SYRINGE 0 ML IV SCH (09:04)
--- NOTE | 2023-04-08 10:13 | Gastroenterology Progress Note ---
Date of Service April 08, 2023 Assessment & Plan (1) Nausea & vomiting: Plan: Once again I do not know why she won't improve. We can increase metoclopramide to 20 mg qid. I will order MRE to evaluate small bowel as the last test I can see to do. Might consider CT or MR brain to look for alodize machine helper lesions as well. Admission and Anticipated Discharge Date Admission Date: April 05, 2023 Subjective Went from doing great last night to feeling bad again today. Says she has improved but gets to a level and won't improve over that. Nothing new in her symptoms Physical Exam Constitutional: WD/WN, vitals as above Results & Data Vital Signs (Past 12 Hours) Vital Signs Temp Pulse Resp BP Pulse Ox O2 Del Method 04/08/23 08:19 36.6 C 52 L 16 119/77 98 Room Air
[2023-04-08] MEDS ORDERED: LORazepam 0.25 MG in SYRINGE 0.125 ML IV STA (10:59)
[2023-04-08 13:01] LABS: Basophils # (auto) 0.02 K/uL (0.00-0.20); Basophils % (auto) 0.2 %; Eosinophils # (auto) 0.13 K/uL (0.00-0.50); Eosinophils % (auto) 1.5 %; Hematocrit (blood only) 33.6 % (37.0-47.0); Hemoglobin 10.8 g/dl (12.0-16.0); Immature Granulocytes # (auto) 0.03 K/uL (0.01-0.20); Immature Granulocytes % (auto) 0.3 %; Lymphocytes # (auto) 2.25 K/uL (1.20-3.40); Lymphocytes % (auto) 25.1 %; Mean Corpuscular Hgb Conc 32.1 g/dL (32.0-36.0); Mean Corpuscular Volume 71.5 fL (80.0-100.0); Mean Platelet Volume 10.7 fL (9.4-12.4); Monocytes # (auto) 0.96 K/uL (0.11-0.59); Monocytes % (auto) 10.7 %; Neutrophils # (auto) 5.56 K/uL (1.40-6.50); Neutrophils % (auto) 62.2 %; Platelet Count 268 K/uL (130-400); RDW Coefficient of Variation 18.1 % (11.5-14.5); RDW Standard Deviation 44.3 fL (36.4-46.3); White Blood Count 8.95 K/ul (4.8-10.8)
[2023-04-08 13:12] LABS: Albumin Level 4.2 gm/dl (3.4-5.0); BUN Creatinine Ratio 8.1 (10-20); Bilirubin Direct 0.2 mg/dl (0-0.2); Bilirubin,Total 0.8 mg/dl (0.2-1.0); Calcium 9.4 mg/dl (8.6-10.3); Creatinine Clr Calc Pharmacy 98.3 ml/min; Est GFR (African American) 113.5 ml/min; Est GFR (Non-African American) 97.9 ml/min; Potassium 3.2 mmol/L (3.5-5.1); Total Protein 6.7 gm/dl (6.0-8.3)
[2023-04-08] MEDS: LACTATED RINGER'S 1,000 ML IV SCH (14:53)
--- NOTE | 2023-04-08 15:16 | XRay Report ---
KUB HISTORY: Vomiting. Evaluate for small bowel obstruction. COMPARISON: Abdomen and pelvis CT 04/02/2023. FINDINGS: The bowel gas pattern is unremarkable. There are no dilated loops of small bowel to suggest an obstruction. No renal calculi. No ureteral calculi. No pneumoperitoneum or pneumatosis. IMPRESSION: Nonobstructive bowel gas pattern. ACT 112: Negative or not required by law. Electronically signed by: Hill Herr M.D. 04/08/2023 3:15 PM
[2023-04-08] MEDS: POTASSIUM CHLORIDE / WTR 10 MEQ/100 ML PLCT IV SCH ×2 (17:03→19:31)
--- NOTE | 2023-04-08 18:06 | Hospitalist Progress Note ---
Date of Service April 08, 2023 Assessment & Plan (1) Nausea & vomiting: Plan: 17 yo female with PMHx GERD, anxiety, and ADHD presents with vomiting. Intractable nausea/vomiting - lipase is with interval elevation from 28 --> 193, this may be due to vomiting and is a relatively mild rise however given persistent pain, p.o. intolerance, nausea vomiting without alternative explanation at this time will obtain MRCP to evaluate for pancreatic/ductal pathology. No cholelithiasis were noted on CT and no pancreatitis was noted on prior CT. she had a transient mild transaminitis on admission which is now resolved and transaminases remain normal on recheck MRI enterography pending, although patient does not feel she can currently tolerate the contrast for this KUB nonobstructive Zofran, Phenergan, PPI, reglan. continued.DDx includes postviral gastroparesi s, patient is positive for flu/adenovirus. patient does have a family history of autonomic gastroparesis without comorbid diabetes. If no alternative etiology is identified high concern for gastroparesis persists, can follow-up for gastric emptying study. Patient also UDS for marijuana, have not yet trialed droperidol/haldol; pt reports last use was several days prior to admission. No focal neurologic symptoms, no headache, no vision change, no sensory/strength change #Anemia, acute -Hgb 10.8, uptrending. Gastric occult was positive positive nausea/vomiting, EGD without evidence of bleeding Hemoglobin remained stable BUN is not elevated Trend daily Bradycardia Most likely secondary to vasovagal from vomiting Monitor Avoid medications that can cause bradycardia including Benadryl and Ativan #Anxiety -Comorbid anxiety, patient declined psychiatry consultation while inpatient #ADHD -started concerta 2 weeks ago. Unclear if attributing to intractable vomiting. Hold for now. DVT ppx: ambulation FEN/GI: N.p.o. Code Status: full (2) Influenza A: Plan: Supportive care at this time (3) Adenovirus infection: Plan: Supportive care at this time (4) Acute anxiety: Plan: Supportive care at this time (5) Anemia: Plan: As discussed above and resident physician (6) Acute GI bleeding: Plan: As discussed above , PPI continued Admission and Anticipated Discharge Date Admission Date: April 05, 2023 Subjective Patient seen at the bedside with her mother present, and subsequently with family present. She reports she is extremely frustrated by her prolonged nausea and just wants to be home and is frustrated that she is in the hospital during the holidays she reports her nausea continues to be worsened with any attempted food which also worsens her epigastric discomfort. She reports she is able to sleep through the night but does wake up nauseous if she does not take Zofran. No fever, chills, sweats. Does have epigastric and right upper quadrant pain which is worse with dry heaving and with attempted meals remits somewhat in between this. She reports she is passing gas daily in small amounts, but has not yet had a bowel movement. Last bowel movement several days ago. She reports she is peeing normally. Reports that she is extremely frustrated at prior discussions of anxiety and notes that she does not feel her symptoms are due to anxiety although the persistent symptoms and hospital course is making her anxiety much worse and she is extremely frustrated. Physical Exam Physical Exam: General: A&Ox3. Anxious and frustrated HEENT: Atraumatic, normocephalic. Pulm: CTAB A&P. -wheezes, -rales, -rhonchi. Symmetrical chest rise. No increased work of breathing. No respiratory distress. Cardiac: RRR, -mrg. Radial pulses intact and symmetrical. Abdominal: Tender to palpation epigastrium and right upper quadrant. Nondistended. Soft. No guarding Extremities: Warm, dry Results & Data Results & Data Vital Signs (Past 12 Hours) Vital Signs Temp Pulse Resp BP Pulse Ox O2 Del Method 04/08/23 17:08 65 96 Room Air 04/08/23 16:33 36.7 C 51 L 16 112/72 93 Room Air 04/08/23 08:19 36.6 C 52 L 16 119/77 98 Room Air PG Care Time/CCT Total # of Minutes Spent Total Time Spent with Patient: Total time spent is greater than 50% in coordination of care (as documented) at patient's floor/unit and/or counseling patient: Coding Level of Care Code 72823 SUB INP/OBS CARE 3/50MIN Diagnoses Nausea & vomiting R11.2 Influenza A J10.1 Adenovirus infection B34.0 Acute anxiety F41.9 Anemia D64.9 Acute GI bleeding K92.2
[2023-04-08] MEDS: SERTRALINE HCL 50 MG TABLET PO SCH (18:24)
--- NOTE | 2023-04-08 19:02 | Magnetic Resonance Report ---
MR MRCP CLINICAL HISTORY: Pancreatitis TECHNIQUE: Multiplanar multisequence MR images of the abdomen were obtained, as per MRCP protocol. . COMPARISON: Comparison is made to CT abdomen pelvis 04/02/2023 FINDINGS: Lower chest: No acute abnormality Liver: Unremarkable. No focal lesions are seen. Gallbladder and biliary tree: No calcified gallstones. Normal caliber wall. No intra- or extrahepatic biliary ductal dilation. Pancreas: Unremarkable, no focal lesions. Spleen: Unremarkable. Adrenals: Unremarkable. Kidneys and ureters: Unremarkable. Bowel: Unremarkable. Lymph nodes Retroperitoneal: Unremarkable. Mesenteric: Unremarkable. Peritoneum: Normal Vessels: Unremarkable. Abdominal wall: Unremarkable. Bones: Unremarkable. IMPRESSION: No acute abnormalities in particular no evidence of pancreatitis. ACT 112: Negative or not required by law. Electronically signed by: Casey Titus M.D. 04/08/2023 6:59 PM
[2023-04-09] MEDS: METOCLOPRAMIDE HCL 10 MG TABLET PO SCH ×4 (00:24→17:35)
[2023-04-09] MEDS ORDERED: Nursing to Pharmacy Communication SCH (03:30)
[2023-04-09] MEDS: POTASSIUM CHLORIDE 40 MEQ in D5W AND NSS 1,000 ML IV SCH (05:14)
[2023-04-09] MEDS ORDERED: D5W AND LACTATED RINGERS 1,000 ML IV SCH (07:45)
[2023-04-09] MEDS: PANTOprazole 40 MG in SYRINGE 0 ML IV SCH (08:01)
[2023-04-09 08:53] LABS: Basophils # (auto) 0.04 K/uL (0.00-0.20); Basophils % (auto) 0.5 %; Eosinophils # (auto) 0.31 K/uL (0.00-0.50); Eosinophils % (auto) 4.1 %; Hematocrit (blood only) 31.1 % (37.0-47.0); Hemoglobin 10.1 g/dl (12.0-16.0); Immature Granulocytes # (auto) 0.03 K/uL (0.01-0.20); Immature Granulocytes % (auto) 0.4 %; Lymphocytes # (auto) 3.13 K/uL (1.20-3.40); Lymphocytes % (auto) 41.7 %; Mean Corpuscular Hemoglobin 23.4 pg (25.0-34.0); Mean Corpuscular Hgb Conc 32.5 g/dL (32.0-36.0); Mean Corpuscular Volume 72.2 fL (80.0-100.0); Mean Platelet Volume 11.3 fL (9.4-12.4); Monocytes # (auto) 1.05 K/uL (0.11-0.59); Neutrophils # (auto) 2.94 K/uL (1.40-6.50); Neutrophils % (auto) 39.3 %; Platelet Count 250 K/uL (130-400); RDW Coefficient of Variation 18.8 % (11.5-14.5); RDW Standard Deviation 47.1 fL (36.4-46.3); Red Blood Count 4.31 M/uL (4.20-5.40)
[2023-04-09 09:21] LABS: BUN Creatinine Ratio 10.1 (10-20); Calcium 8.9 mg/dl (8.6-10.3); Est GFR (African American) 108.9 ml/min; Potassium 4.1 mmol/L (3.5-5.1)
[2023-04-09] MEDS ORDERED: GLUCAGON FOR INJ 1 MG VIAL ONE (12:05)
[2023-04-09] MEDS ORDERED: GADOBUTROL 65ML VIAL IV ONE (12:32)
--- NOTE | 2023-04-09 13:16 | Magnetic Resonance Report ---
MR enterography wo/w con HISTORY: Elevated lipase. persistent vomiting TECHNIQUE: MR enterography of the abdomen and pelvis was performed both before and after the intraven ous administration of 6.6 cc of Gadavist contrast. 1 mg of intramuscular glucagon was also administer ed for the examination. COMPARISON STUDY: MRCP 04/08/2023. Abdomen and pelvis CT 04/02/2023. FINDINGS: The lung bases are clear. The liver, gallbladder, pancreas, spleen, adrenal glands, and kid neys unremarkable. No hydronephrosis. Normal caliber common bile duct. No gallstones identified. Norm al caliber abdominal aorta. No retroperitoneal lymphadenopathy. No pelvic lymphadenopathy or pelvic f ree fluid. The bladder, uterus, bilateral adnexa are within normal limits. No bowel wall thickening o r obstruction. No mucosal hyperenhancement. IMPRESSION: Normal MR enterography with no bowel wall thickening or obstruction. ACT 112: Negative or not required by law. Electronically signed by: Hill Herr M.D. 04/09/2023 1:14 PM
[2023-04-09] MEDS: ONDANSETRON INJ 2 MG/ML 2 ML VIAL IV PRN (14:16)
--- NOTE | 2023-04-09 15:04 | Hospitalist Progress Note ---
Date of Service April 09, 2023 Assessment & Plan (1) Nausea & vomiting: Plan: 17 yo female with PMHx GERD, anxiety, and ADHD presents with vomiting. Intractable nausea/vomiting. 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 MRCP was normal. Suspect this was due to vomiting MRI enterography without acute findings Patient went over a week without a bowel movement, no bowel movement to rectal suppository, then subsequently did have a liquid bowel movement 04/09 following contrast administration. KUB has been nonobstructive and initial CT with no evidence of obstruction . Zofran, Reglan, PPI continued. Recommend continue Reglan at this mostly clear be helpful to her for gastroparesis, if progressing can trial erythromycin Clinically 04/09 is the best day she has had in the last week and feels hungry and ready to advance her diet. Will do this slowly at liquids first, and then may advance to low-fat/low residue diet as tolerated If doing well and tolerating p.o. may be discharged at that time. If she regresses, continues to have intolerance to p.o. then would need tertiary referral/gastric emptying evaluation. This does not appear necessary at this time, hopefully will progress to discharge tonight or tomorrow morning (2) Influenza A: Plan: Supportive care at this time (3) Adenovirus infection: Plan: Supportive care at this time (4) Acute anxiety: Plan: Supportive care at this time (5) Anemia: Plan: Stable, uptrending. Macrocytic. no ulcers or lesions noted on EGD. stable at approximately 10, continue PPI Iron studies with low- normal transferrin saturation and low-normal ferritin of 30, normal TIBC and UIBC. When able to tolerate can add iron supplementation defer this due to gastroparesis and risk of exacerbating constipation/nausea/vomiting (6) Acute GI bleeding: Plan: As noted. No ongoing bleeding, no ulcers noted on EGD Plan DVT prophylaxis: Ambulate Disposition: Medical telemetry CODE STATUS: Full code Diet: Progress to full liquids; if tolerating may progress to low-fat low residue Admission and Anticipated Discharge Date Admission Date: April 05, 2023 Subjective Patient seen at bedside in the morning and following MRI. She reports her night went well and she slept much better, and actually feels much better with no pain and almost no nausea this morning. She does feel that she will be able to tolerate the contrast for her MRI, and on reassessment did tolerate this successfully. Following MRI she did have some return of mild nausea and notes that she had not yet taken Reglan but was still 90% improved from the prior day. She denies fever, chills, sweats. Following oral contrast did have a liquid/diarrhea bowel movement her first and several days. No blood/melena Physical Exam Physical Exam: General: A&Ox3. NAD. Cooperative. HEENT: Atraumatic, normocephalic. Pulm: CTAB A&P. -wheezes, -rales, -rhonchi. Symmetrical chest rise. No increased work of breathing. No respiratory distress. Cardiac: RRR, -mrg. Radial pulses intact and symmetrical. Abdominal: Nontender, nondistended, soft. BS present. Extremities: Warm, dry Results & Data Results & Data Vital Signs (Past 12 Hours) Vital Signs Temp Pulse Resp BP Pulse Ox O2 Del Method 04/09/23 07:32 36.4 C L 57 L 18 98/63 L 98 Room Air PG Care Time/CCT Total # of Minutes Spent Total Time Spent with Patient: Total time spent is greater than 50% in coordination of care (as documented) at patient's floor/unit and/or counseling patient: Coding Level of Care Code 53318 SUB INP/OBS CARE 3/50MIN Diagnoses Nausea & vomiting R11.2 Influenza A J10.1 Adenovirus infection B34.0 Acute anxiety F41.9 Anemia D64.9 Acute GI bleeding K92.2
[2023-04-09] MEDS: SERTRALINE HCL 50 MG TABLET PO SCH (17:39)
--- NOTE | 2023-04-09 19:16 | Electrocardiogram Report ---
Test Reason : Blood Pressure : / mmHG Vent. Rate : 057 BPM Atrial Rate : 057 BPM P-R Int : 138 ms QRS Dur : 086 ms QT Int : 400 ms P-R-T Axes : 044 050 035 degrees QTc Int : [address] elevation, consider early repolarization Borderline ECG When compared with ECG of 02-APR-2023 19:45, QT has shortened Confirmed by Syed Florez ([id number]) on 04/09/2023 7:15:58 PM Referred By: REFERRED SELF Confirmed By:Syed Florez
--- NOTE | 2023-04-23 12:42 | Discharge Summary ---
Date of Service April 23, 2023 Admission HPI Per Admitting Provider 17 year old with ten days of vomiting. EGD planned Principal Diagnosis Postviral gastroparesis Discharge Exam General: A&Ox3. NAD. Cooperative. HEENT: Atraumatic, normocephalic. Vision/hearing intact Pulm: CTAB A&P. -wheezes, -rales, -rhonchi. Symmetrical chest rise. No increased work of breathing. No respiratory distress. Cardiac: RRR, -mrg. Radial pulses intact and symmetrical. Abdominal: Nontender, nondistended, soft. BS present. Discharge Data Allergies Allergy/AdvReac Type Severity Reaction Status Date / Time No Known Allergies Allergy Unverified 04/02/23 08:45 Consultations 04/02/23 20:52 ED Decision to Admit Stat 04/02/23 23:09 Consult Gastroenterology Routine 04/06/23 14:42 Consult Behavioral Health Liaison Routine Procedures Performed Operation Date: 04/07/23 16:30 <No data on this case meets the specified criteria> Ordered Studies 04/02/23 19:08 CT abd pelvis IV con only Stat 04/08/23 15:21 MR MRCP Routine 04/09/23 12:00 MR enterography wo/w con Routine Hospital Course (1) Nausea & vomitin yo female with PMHx GERD, anxiety, and ADHD presents with vomiting. Nunu was seen in the ER for persistent nausea/vomiting. GI was consulted and she had extensive evaluation did not show any signs of gallbladder disease, CT of the abdomen and pelvis, MRI of the pancreas, and MR enterography showed no evidence of pancreatitis, bowel obstruction, or acute abdominal pathology. She had been positive for both adenovirus and influenza A prior to onset of her symptoms. She was ultimately felt to have postviral gastroparesis which gradually improved and had marked improvement after the prescription of metoclopramide. As she was clinically progressing and tolerating p.o. at day of discharge patient was felt to be appropriate for discharge and follow-up as outpatient with her home PCP. She was discharged with a short prescription of Reglan for motility and had no signs of ongoing fever, chills, sweats, respiratory compromise, or active infection at discharge. She had had both flatus and a bowel movement and tolerated a regular diet on day of discharge. Case was discussed with both patient and her mother who had no questions and no ongoing concerns at time of discharge. Patient did have significant comorbid anxiety however do not feel her symptoms were due to this, and once her symptoms improved on Reglan patient felt her anxiety was much better. Last note below copied for complete Intractable nausea/vomiting. 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 MRCP was normal. Suspect this was due to vomiting MRI enterography without acute findings Patient went over a week without a bowel movement, no bowel movement to rectal suppository, then subsequently did have a liquid bowel movement 04/09 following contrast administration. KUB has been nonobstructive and initial CT with no evidence of obstruction . Zofran, Reglan, PPI continued. Recommend continue Reglan at this mostly clear be helpful to her for gastroparesis, if progressing can trial erythromycin Clinically 04/09 is the best day she has had in the last week and feels hungry and ready to advance her diet. Will do this slowly at liquids first, and then may advance to low-fat/low residue diet as tolerated If doing well and tolerating p.o. may be discharged at that time. If she regresses, continues to have intolerance to p.o. then would need tertiary referral/gastric emptying evaluation. This does not appear necessary at this ti me, hopefully will progress to discharge tonight or tomorrow morning (2) Influenza A: Supportive care at this time (3) Adenovirus infection: Supportive care at this time (4) Acute anxiety: Supportive care at this time (5) Anemia: Stable, uptrending. Macrocytic. no ulcers or lesions noted on EGD. stable at approximately 10, continue PPI Iron studies with low- normal transferrin saturation and low-normal ferritin of 30, normal TIBC and UIBC. When able to tolerate can add iron supplementation defer this due to gastroparesis and risk of exacerbating constipation/nausea/vomiting (6) Acute GI bleeding: As noted. No ongoing bleeding, no ulcers noted on EGD Plan DVT prophylaxis: Ambulate Disposition: Medical telemetry CODE STATUS: Full code Diet: Progress to full liquids; if tolerating may progress to low-fat low residue Total Time Total Time Spent Total Time Spent (In Minutes): Time spend day of discharge 45 minutes including direct patient care, documentation, review of labs and images, and coordination of care. Discharge Plan Discharge Items Patient Disposition: Home - Self-Care Reason For Visit: NAUSEA, VOMITING Discharge Diagnosis: Post viral gastroparesis Condition on Discharge: Good Activity: Per Instructions section Non-emergency contact: Primary Care Provider Call non-emergency contact if: you have any medication questions Follow-up/Referrals: [facility] [Primary Care Provider] - Diet: Low Fat Addtl Attending Provider Instructions: You were seen in the hospital for severe nausea/vomiting.You tested positive for both adenovirus and influenza A. You would continue nausea/vomiting which was suspected to be due to postviral gastroparesis. This gradually improved. He did not show any signs of gallbladder abnormalities, had no gallbladder stones, and imaging including a CT of the abdomen pelvis, MRI of the pancreas, and MR enterography showed no evidence of pancreatitis, bowel obstruction, or acute abdominal pathology. Functional gastroparesis does not show up on traditional imaging studies, a gastric emptying study was not performed as you are cl inically improving. You may continue to take metoclopramide 10 mg 3 times a day as needed, please do not take this medication if you feel well and do not require it and wean it as you improve. If you have any worsening symptoms please seek medical reevaluation. Gastroparesis can take several weeks to completely resolve, please maintain a low-fat low residue diet and follow-up with your primary care physician. An appointment is being set up for you with [facility] for follow-up. If you have any worsening or recurrent symptoms please return to the ER for medical reevaluation You have been prescribed medication, metoclopramide. This helps with gastric motility. You may take up to 10 mg spread out up to 3 times per day. This medication can cause twitching and myoclonic/tremor reactions in addition can lengthen a heart interval called QT which can contribute to potentially life- threatening or fatal arrhythmias and very rare cases. If you develop any chest pain or tremors please stop this medication and call your primary care provider to discuss this, or return to the ER for reevaluation. You have been prescribed a medication, sertraline. This can help with anxiety but takes generally around 6 weeks to begin to produce benefit. Please continue to take sertraline 50 mg by mouth daily in the evenings. If you develop any fevers, chills, sweats, tremors please stop this medication and discuss it with your PCP If you develop any new or worsening symptoms including fever, chills, sweats, chest pain, chest pressure, difficulty breathing, uncontrolled nausea/vomiting, rash, wheezing, passing out or nearly passing out, bleeding, black/bloody bowel movements, or other new or concerning symptoms please call your primary care physician, or call 911 for re-evaluation in the emergency department if you are very concerned. Pending Studies at Discharge: No Stand-Alone Forms: My [facility] [employer], Smoking Cessation Medications and DC Order Prescriptions: New sertraline 50 mg Tablet 50 mg PO 1800 Qty: 30 0RF metoclopramide HCl 10 mg tablet 10 mg PO TID PRN (Reason: nausea and vomiting) 7 Days Qty: 28 1RF Continued lorazepam 1 mg tablet 1 mg PO BID PRN (Reason: anxiety) Qty: 6 0RF hydroxyzine pamoate [Vistaril] 50 mg capsule 50 mg PO Q8H PRN (Reason: sleep/anxiety) Qty: 15 0RF prochlorperazine maleate [Compazine] 10 mg tablet 10 mg PO Q6H PRN (Reason: nausea and vomiting) Qty: 10 0RF Held ferrous sulfate 325 mg (65 mg iron) Tablet 325 mg PO QAM Hold Instructions: Resume on 04/19/23. methylphenidate HCl [Concerta] 18 mg Tablet Extended Release 24hr 18 mg PO QAM Hold Instructions: Resume on 04/16/23. Discharge Orders: Discharge Order (Routine); Ordered 04/09/23 Ordered By: Beny Vences/Other Patient Handouts: ED Vomiting (Adult) Admission Data Admit Date/Time: 04/05/23 07:57 Attending Provider: Beny Gutiérrez Admit Provider: Riley Culver Primary Care Provider: [facility] Other Providers: Boo Recinos; Marilee Villa Jr Other Interventions: Discharge Summary Assessment (RN) Last Done: 04/09/23 18:13 Coding Level of Care Code 01984 INP/OBS DISCH >30 MIN Diagnoses Nausea & vomiting R11.2 Influenza A J10.1 Adenovirus infection B34.0 Acute anxiety F41.9 Anemia D64.9 Acute GI bleeding K92.2
== END 2023-04-09 19:09 | disposition home or self-care (01) | DRG 866 ==
LOC: EDINP 17:51 → ED 17:51 → SUATTDRO 22:04 → 3N 23:08 → SUATTDRO 04-05 07:57

== ENCOUNTER 2023-07-28 12:42 | Inpatient (IN) ==
[2023-07-28] MEDS: ONDANSETRON INJ 2 MG/ML 2 ML VIAL IV STA ×2 (13:24→19:30)
[2023-07-28] MEDS: SODIUM CHLORIDE 0.9% 1,000 ML IV ONE ×2 (13:27→15:09)
[2023-07-28 13:54] LABS: Basophils # (auto) 0.04 K/uL (0.00-0.20); Basophils % (auto) 0.3 %; Hematocrit (blood only) 32.9 % (37.0-47.0); Immature Granulocytes # (auto) 0.05 K/uL (0.01-0.20); Immature Granulocytes % (auto) 0.4 %; Lymphocytes # (auto) 1.99 K/uL (1.20-3.40); Lymphocytes % (auto) 16.4 %; Mean Corpuscular Hemoglobin 25.4 pg (25.0-34.0); Mean Corpuscular Hgb Conc 33.4 g/dL (32.0-36.0); Mean Platelet Volume 9.8 fL (9.4-12.4); Monocytes % (auto) 10.7 %; Neutrophils # (auto) 8.76 K/uL (1.40-6.50); Neutrophils % (auto) 72.2 %; Platelet Count 402 K/uL (130-400); RDW Coefficient of Variation 19.7 % (11.5-14.5); RDW Standard Deviation 52.6 fL (36.4-46.3); Red Blood Count 4.33 M/uL (4.20-5.40); White Blood Count 12.14 K/ul (4.8-10.8)
[2023-07-28 14:11] LABS: Albumin Globulin Ratio 1.5 (0.9-2); Albumin Level 4.9 gm/dl (3.4-5.0); BUN Creatinine Ratio 16.3 (10-20); Bilirubin,Total 0.8 mg/dl (0.2-1.0); Calcium 10.1 mg/dl (8.6-10.3); Creatinine Clr Calc Pharmacy 86.3 ml/min; Est GFR (African American) 112.7 ml/min; Est GFR (Non-African American) 97.3 ml/min; Globulin 3.2 gm/dl (2.5-4.0); Potassium 3.1 mmol/L (3.5-5.1); Total Protein 8.1 gm/dl (6.0-8.3)
[2023-07-28] MEDS: PROCHLORPERAZINE 2 ML IV ONE (14:22)
[2023-07-28] MEDS: diphenhydrAMINE 50 MG/ML VIAL IV STA (14:22)
[2023-07-28 15:38] LABS: Adenovirus PCR Not Detected (NotDetected); Bordetella parapertussis PCR Not Detected (NotDetected); Bordetella pertussis PCR Not Detected (NotDetected); Chlamydia pneumoniae PCR Not Detected (NotDetected); Coronavirus 229E PCR Not Detected (NotDetected); Coronavirus CoV-2 (COVID19)PCR Not Detected (NotDetected); Coronavirus HKU1 PCR Not Detected (NotDetected); Coronavirus NL63 PCR Not Detected (NotDetected); Coronavirus OC43PCR Not Detected (NotDetected); Human Metapneumovirus PCR Not Detected (NotDetected); Influenza A PCR Not Detected (NotDetected); Influenza B PCR Not Detected (NotDetected); Mycoplasma pneumoniae PCR Not Detected (NotDetected); Parainfluenza Virus 1 PCR Not Detected (NotDetected); Parainfluenza Virus 2 PCR Not Detected (NotDetected); Parainfluenza Virus 3 PCR Not Detected (NotDetected); Parainfluenza Virus 4 PCR Not Detected (NotDetected); Respiratory Syncytial VirusPCR Not Detected (NotDetected); Rhinovirus/Enterovirus PCR Not Detected (NotDetected)
--- NOTE | 2023-07-28 18:17 | History & Physical Report ---
Date of Service July 28, 2023 Assessment & Plan (1) Nausea & vomiting: Plan: Intractable N/V and chills that began on Saturday 07/22 Similar to hx of prior episode in March 2023; patient hospitalized [facility] for 10 days Patient has been trying to take Zofran and Phenergan at home, but this is not helping Bio[employer] negative CXR & KUB ordered, pending Zofran q4h as needed for nausea/vomiting; QTc 425; consider henergen if refractory Compazine 5mg IV q6h as needed for breakthrough N/V Gastroenterology consulted A.m. CBC, BMP (2) Metabolic acidosis: Plan: Anion gap elevated at 20 Lactate WNL at 1.1 Serum Osm WNL Medical alcohol WNL Suspect starvation ketoacidosis in setting of poor oral intake IVF resuscitation with D5LR at 100mL/hr x 3 (3) Anemia: Plan: Hgb 11.0 on arrival In the setting of reported hemoptysis, cannot rule out GI bleed, Maddy-Navarro tear N.p.o. for now Protonix 40 g IV BID Trend H&H (4) Marijuana use: Plan: Marijuana positive on 07/26 Patient reports she stopped using marijuana after hospitalization in March 2023 Unclear if contributing factor (5) Hypokalemia: Plan: Mild; K 3.1 on arrival K rider 10mEq x 2 Recheck AM potassium (6) Hemoptysis: Plan: Patient does endorse blood in her vomit Unclear etiology; GI bleed vs maddy selena tear vs erosive esophagitis Famotidine 20 mg IV daily to cover for erosive esophagitis Protonix (as above) (7) Anxiety: Plan: Ativan 0.5mg IV q8h as needed Plan Disposition: Obs - Admit to [facility] Telemetry Full code Keep NPO for now and advance as tolerated VTE PPx: SCDs (hold chemical DVT PPx in the setting of reported hemoptysis) History of Present Illness Chief Complaint: Vomiting Primary Care Provider: [facility] Candy is a 18-year-old female with PMH of anxiety, ADHD, bradycardia, and GI bleed. She initially presented on 07/26 for evaluation of intractable nausea and vomiting. She returned on 07/27 as her symptoms did not resolve at home. Patient denies any chance of being this time. Her symptoms began on Saturday 07/22. She reports it is similar to her prior cyclical vomiting syndrome in March 2023, which required hospitalization at [facility] for 10 days. Nausea and vomiting have been fairly constant, and patient has been trying to ta ke both Zofran and Phenergan at home, without relief. She reports that she has had some blood in her vomit as well, and that she is having severe sore throat pain. Additional symptoms include chills, trouble breathing during episodes of dry heaves and vomiting, and dizziness/lightheadedness. Of note, the patient reports that she has not had a bowel movement since before Wednesday. Unsure when her last bowel movement was she denies history of GI bleeds. She denies history of recent alcohol use. She reports that she stopped using marijuana after her hospitalization in the summer 2022. She denies other recreational drug use. She has not been tolerating solids or liquids. Reports she has not eaten in 3 days. No recent changes in diet prior to onset of nausea vomiting. Patient is a [employer] student. She is hypertensive at 144/103 at time of admission; also bradycardic at 54 bpm. ED Course: NSS 1000 mL IV x 2 Diphenhydramine 25 mg IV Zofran 4 mg IV Compazine 2 mL IV ROS: Patient endorses chills, sweating, dizziness/lightheadedness, tingling in hands, passing out, bruising easily, chest pain (from throwing up), throat pain, SOB when nauseated, N/V, blood in vomiting, Patient denies fever, diarrhea, headaches, Allergies Allergy/AdvReac Type Severity Reaction Status Date / Time No Known Allergies Allergy Verified 07/28/23 14:21 Home Medications Medication Instructions Recorded Confirmed Type hydroxyzine pamoate 50 mg capsule 50 mg PO Q8H PRN sleep/anxiety #15 01/26/23 07/28/23 Rx (Vistaril) caps lorazepam 1 mg tablet 1 mg PO BID PRN anxiety #6 tabs 01/26/23 07/28/23 Rx ferrous sulfate 325 mg (65 mg 325 mg PO QAM 04/02/23 07/28/23 History iron) tablet prochlorperazine maleate 10 mg 10 mg PO Q6H PRN nausea and 12/15/23 04/10/24 Rx tablet (Compazine) vomiting #10 tabs metoclopramide HCl 10 mg tablet 10 mg PO TID PRN nausea and 04/09/23 07/28/23 Rx vomiting 7 days #28 tabs promethazine 25 mg tablet 25 mg PO Q6H PRN nausea and 07/27/23 07/28/23 Rx vomiting #20 tabs methylphenidate HCl 36 mg 36 mg PO DAILY 07/28/23 07/28/23 History tablet,extended release 24 hr (Concerta) sertraline 100 mg tablet 100 mg PO HS 07/28/23 07/28/23 History Past Med/Surg History Medical History (Updated 07/28/23 @ 20:13 by Hill Matias PA-C) Anxiety No pertinent past medical history Surgical History History of nasal surgery History of ankle surgery Social History Smoking Status: Never smoker Hx Alcohol Use: No Hx Substance Use: No Preferred Language: Jordanian Communication Ability: Effective Citrus [employer] Packer Required: No Beliefs That Will Affect Care: None Current Living Situation: Other Current Living Situation Comment: apartment with 3 other people Feels Safe at Home: Yes Assistive Devices: None Review of Systems Review of Systems: See HPI above Physical Exam Physical Exam: General: Acute dry heaving, and physical distress; chills; anxious; cooperative; 99% SpO2 on RA HEENT: normocephalic, atraumatic; no scleral icterus; PERRLA; dry mucus membrane; vision and hearing grossly intact Neck: supple; no lymphadenopathy; trachea midline Skin: warm, dry without signs of tenting; no cyanosis; no rashes, bruising, lesions, or erythema noted CV: chest wall NTP; RRR; S1/S2 normal; no murmurs/rubs/gallops; pulses intact and symmetric at radial, DP, and PT Lungs: no acute respiratory distress; symmetrical chest wall expansion; clear breath sounds across all lung crooks w/o adventitious sounds; no wheezing ABD: Soft, NTP; BS present; no rebound/guarding; no distention; abdomen without rashes, erythema, or signs of active bleeding MSK: no tics or fasciculations; no edema noted in the LEs b/l, nonerythematous Neuro: A&Ox3; anxious in the normal mood and affect; fluent speech; no focal deficits; sensation grossly intact in the LEs b/l Results & Data Results & Data Vital Signs (Past 12 Hours) Vital Signs Temp Pulse Pulse Resp BP BP Pulse Ox 07/28/23 17:10 60 22 144/103 H 99 07/28/23 16:17 72 17 128/84 98 07/28/23 12:53 36.9 C 81 18 111/48 L 95 O2 Del Method 07/28/23 17:10 Room Air 07/28/23 16:17 Room Air 07/28/23 12:53 Room Air Laboratory Results Abnormal lab results 07/28/23 Range/Units 13:23 WBC 12.14 H (4.8-10.8) K/ul Hgb 11.0 L (12.0-16.0) g/dl Hct 32.9 L (37.0-47.0) % MCV 76.0 L (80.0-100.0) fL RDW Std Deviation 52.6 H (36.4-46.3) fL RDW Coeff of Shaylee 19.7 H (11.5-14.5) % Plt Count 402 H (130-400) K/uL Neut # (Auto) 8.76 H (1.40-6.50) K/uL [place] # (Auto) 1.30 H (0.11-0.59) K/uL Potassium 3.1 L (3.5-5.1) mmol/L Carbon Dioxide 20 L (21-32) mmol/L Anion Gap 20 H (3-11) ECG Additional Comments: ECG revealed sinus bradycardia at 52 bpm; QTc 425 Code Status & VTE Plan Code Status Full code VTE Prophylaxis Plan VTE Prophylaxis will be ordered: Yes Supervising Physician Co-Signing Physician Notes Patient seen and examined, chart reviewed, case discussed with Hill Matias and I agree with the assessment and plan as above except as otherwise noted Labs and images reviewed 18yo F with hx of n/v, cyclical vomiting, post viral gastroparesis who presents with 5 days of nausea/vomiting and nearly no PO intake. Stopped taking meds Wednesday due to nausea. Some bright red blood following multiple peisodes of vomiting, no melena/hematochezia. Denies recent ETOH use, denies marijuana use although UDS is positive. No BM in several days. Bio fire is normal. Patient does have an elevated anion gap of 20 with bicarb of 20 suggestive of metabolic acidosis. Lactic acid, alcohol, serum osmolality have been added. Patient is not a diabetic and BSG on admission is 86. Likely with some starvation ketosis. Bio fire is negative. Agree with fluid resuscitation, given poor p.o. and suspected [place] ketosis will switch fluids to D5 LR and continue it 150 cc/h. Agree with Protonix, famotidine, GI cocktail for possible gastritis. 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 Agree with above. At bedside patient is mildly tender in the epigastrium but abdomen is otherwise soft and without rebound/guarding. Lungs are clear, heart rate is regular PG Care Time/CCT Total # of Minutes Spent Total Time Spent with Patient: Total time spent is greater than 50% in coordination of care (as documented) at patient's floor/unit and/or counseling patient: Coding [place] [address] INT INP/OBS CARE 2/55MIN Patient Type Established History Comprehensive Exam Comprehensive Medical Decision Making Moderate Complexity Diagnoses Nausea & vomiting R11.2 Metabolic acidosis E87.20 Anemia D64.9 Marijuana use F12.90 Hypokalemia E87.6 Hemoptysis R04.2 Anxiety F41.9
[2023-07-28] MEDS: FAMOTIDINE 20MG IV PUSH 20 MG/5 ML SYR IV STA (19:30)
[2023-07-28] MEDS: ACETAMINOPHEN 1,000 MG/100 ML VIAL IV STA (19:30)
[2023-07-28] MEDS: LACTATED RINGER'S 1,000 ML IV SCH (19:32)
[2023-07-28 19:47] LABS: Magnesium 2.1 mg/dl (1.7-2.4)
[2023-07-28] MEDS: POTASSIUM CHLORIDE / WTR 10 MEQ/100 ML PLCT IV SCH (20:47)
[2023-07-28] MEDS: PANTOprazole 40 MG in SYRINGE 0 ML IV SCH (21:01)
[2023-07-28 21:38] LABS: Hematocrit (blood only) 31.8 % (37.0-47.0); Hemoglobin 10.3 g/dl (12.0-16.0)
--- NOTE | 2023-07-28 23:46 | Emergency Department Note ---
ED Provider Note History of Present Illness Chief Complaint: Vomiting Stated Complaint: VOMITTING SINCE LAST NIGHT Time Seen by Provider: 07/28/23 14:12 Source: patient Mode of arrival: ambulatory Limitations: no limitations This patient is a 18-year-old female who presents to the emergency department for uncontrolled vomiting x 5 days. Patient was seen here last night for the same symptoms and felt slightly better at discharge but then began vomiting again when she returned home. She reports that she had a similar episode of symptoms several months ago and was admitted for cyclical vomiting syndrome at that time. She was told that it may be due to her marijuana use and she states that she has completely quit using marijuana since then. She denies any abdominal pain at this time but states that she is having significant nausea which has been uncontrolled by home medications. She tried Zofran and Reglan without improvement. Home Medications Medication Instructions Recorded Confirmed Type hydroxyzine pamoate 50 mg capsule 50 mg PO Q8H PRN sleep/anxiety #15 01/26/23 07/28/23 Rx (Vistaril) caps lorazepam 1 mg tablet 1 mg PO BID PRN anxiety #6 tabs 01/26/23 07/28/23 Rx ferrous sulfate 325 mg (65 mg 325 mg PO QAM 04/02/23 07/28/23 History iron) tablet prochlorperazine maleate 10 mg 10 mg PO Q6H PRN nausea and 04/02/23 07/28/23 Rx tablet (Compazine) vomiting #10 tabs metoclopramide HCl 10 mg tablet 10 mg PO TID PRN nausea and 04/09/23 07/28/23 Rx vomiting 7 days #28 tabs promethazine 25 mg tablet 25 mg PO Q6H PRN nausea and 07/27/23 07/28/23 Rx vomiting #20 tabs methylphenidate HCl 36 mg 36 mg PO DAILY 07/28/23 07/28/23 History tablet,extended release 24 hr (Concerta) sertraline 100 mg tablet 100 mg PO HS 07/28/23 07/28/23 History buspirone 5 mg tablet 10 mg (2 x 5 mg) PO BID #60 tabs 07/31/23 Rx famotidine 20 mg tablet 20 mg PO DAILY #10 tabs 07/31/23 Rx metoclopramide HCl 10 mg tablet 10 mg PO Q6 #40 tabs 07/31/23 Rx pantoprazole 40 mg tablet,delayed 40 mg PO BID 10 days #20 tabs 07/31/23 Rx release (Protonix) potassium chloride 20 mEq 20 meq PO QAM #30 tabs 07/31/23 Rx tablet,extended release(part/cryst) Allergies Allergy/AdvReac Type Severity Reaction Status Date / Time No Known Allergies Allergy Verified 07/28/23 14:21 Past Med/Surg History Medical History Anxiety No pertinent past medical history Surgical History History of nasal surgery History of ankle surgery Social History Smoking Status: Never smoker Second Hand Exposure: No; Do You Dip or Chew Tobacco: No; Hx Alcohol Use: No Hx Substance Use: No Preferred Language: Cook Islander Communication Ability: Effective Hearing Aid Repairer Required: No Beliefs That Will Affect Care: None Current Living Situation: Other Current Living Situation Comment: apartment with 3 other people Feels Safe at Home: Yes Assistive Devices: None Physical Exam Vital Signs Vital Signs - 24 hr 07/28/23 12:53 07/28/23 16:17 07/28/23 17:10 Temperature 36.9 C Temperature Source Temporal Artery Scan Pulse Rate 81 Pulse Rate [Finger] 72 60 Pulse Rhythm [Finger] Regular Pulse Strength [Finger] Normal Respiratory Rate 18 17 22 Respiratory Effort / Characteristics Non-Labored Spontaneous Non-Labored Spontaneous Non-Labored Spontaneous Respiratory Depth Normal Normal Normal Respiratory Pattern Regular Regular Blood Pressure 111/48 L Blood Pressure [Left Arm] 128/84 144/103 H Blood Pressure Mean 69 Blood Pressure Mean [Left Arm] 98 116 Blood Pressure Position Sitting Blood Pressure Position [Left Arm] Semi-fowlers Pulse Oximetry 95 98 99 Oxygen Delivery Method Room Air Room Air Room Air Sepsis Recent Fever Within 48 Hours No Sepsis New/Unexplained Change in Mental Status N/A Sepsis Action Taken by Nursing No Action Required VITALS: Vitals are noted on the nurse's note and reviewed by myself. GENERAL: This is a 18-year-old female, dry heaving. SKIN: The skin was without rashes. EYES: Pupils equal round and reactive to light and accommodation. MOUTH: Mucous membranes moist. Tonsils are not enlarged. Pharynx without erythema or exudate. NECK: Supple without nuchal rigidity. No lymphadenopathy. HEART: Regular rate and rhythm without murmurs gallops or rubs. LUNGS: Clear to auscultation bilaterally without wheezes, rales or rhonchi. ABDOMEN: Positive bowel sounds x 4. Soft, nontender to palpation. NEURO: Patient was alert and oriented to person place and time. Course Administered Medications Discontinued Medications Buspirone HCl (Buspirone 5 Mg Tab) 10 mg PO BID DAVID Stop: 08/29/23 20:59 Last Admin: 07/31/23 09:00 Dose: 10 mg Documented By: Admin: 07/30/23 20:14 Dose: 10 mg Documented By: MG Diphenhydramine HCl (Diphenhydramine 50 Mg/Ml Vial) 25 mg IV NOW STA Stop: 07/28/23 14:14 Last Admin: 07/28/23 14:22 Dose: 25 mg Documented By: NA Sodium Chloride (Nss) 1,000 mls @ 999 mls/hr IV .Q1H1M ONE Stop: 07/28/23 14:26 Last Infusion: 07/28/23 15:09 Dose: Infused Documented By: Admin: 07/28/23 13:27 Dose: 999 mls/hr Documented By: CAW Prochlorperazine (Compazine) 2 mls @ 1 mls/min IV ONE ONE Stop: 07/28/23 14:14 Last Admin: 07/28/23 14:22 Dose: 1 mls/min Documented By: NA Sodium Chloride (Nss) 1,000 mls @ 999 mls/hr IV .Q1H1M ONE Stop: 07/28/23 15:30 Last Infusion: 07/28/23 17:14 Dose: Infused Documented By: Admin: 07/28/23 15:09 Dose: 999 mls/hr Documented By: NA Famotidine (Pepcid 20mg Iv Push) 20 mg in 5 mls @ 2.5 mls/min IV NOW STA Stop: 07/28/23 18:43 Last Admin: 07/28/23 19:30 Dose: 2.5 mls/min Documented By: LAF Acetaminophen (Ofirmev) 1,000 mg in 100 mls @ 400 mls/hr IV NOW STA Stop: 07/28/23 19:06 Last Infusion: 07/28/23 20:31 Dose: Infused Documented By: Admin: 07/28/23 19:30 Dose: 400 mls/hr Documented By: FAY Lactated Ringer's (Lr) 1,000 mls @ 100 mls/hr IV .Q10H DAVID Stop: 07/29/23 14:59 Last Infusion: 07/29/23 00:27 Dose: Infused Documented By: Admin: 07/28/23 19:32 Dose: 100 mls/hr Documented By: FAY Famotidine (Pepcid 20mg Iv Push) 20 mg in 5 mls @ 2.5 mls/min IV QAM DAVID Stop: 08/28/23 08:59 Last Admin: 07/31/23 08:56 Dose: 2.5 mls/min Documented By: Admin: 07/30/23 08:34 Dose: 2.5 mls/min Documented By: Admin: 07/29/23 08:09 Dose: 2.5 mls/min Documented By: KELSEY Pantoprazole Sodium 40 mg/ (Syringe) 10 mls @ 5 mls/min IV BID DAVID Stop: 08/27/23 20:59 Last Admin: 07/31/23 08:55 Dose: 5 mls/min Documented By: Admin: 07/30/23 20:14 Dose: 5 mls/min Documented By: Admin: 07/30/23 08:31 Dose: 5 mls/min Documented By: Admin: 07/29/23 21:16 Dose: 5 mls/min Documented By: Admin: 07/29/23 08:09 Dose: 5 mls/min Documented By: Admin: 07/28/23 21:01 Dose: 5 mls/min Documented By: FAY Potassium Chloride (K Charles / Wtr) 10 meq in 100 mls @ 100 mls/hr IV Q1H DAVID Stop: 07/28/23 22:14 Last Infusion: 07/29/23 01:52 Dose: Infused Documented By: Admin: 07/29/23 00:33 Dose: 100 mls/hr Documented By: Infusion: 07/29/23 00:27 Dose: Infused Documented By: Admin: 07/28/23 20:47 Dose: 100 mls/hr Documented By: FAY Lorazepam 0.5 mg/ Syringe 0.5 mls @ 2 mls/min IV Q8H PRN PRN Reason: Anxiety Stop: 08/27/23 20:12 Last Admin: 07/30/23 10:41 Dose: 2 mls/min Documented By: Admin: 07/30/23 02:18 Dose: 2 mls/min Documented By: Admin: 07/29/23 18:29 Dose: 2 mls/min Documented By: Admin: 07/29/23 09:04 Dose: 2 mls/min Documented By: KELSEY Dextrose/Lactated Ringer's (D5w And Lactated Ringers) 1,000 mls @ 100 mls/hr IV .Q10H DAVID Stop: 07/30/23 03:14 Last Infusion: 07/30/23 09:16 Dose: Infused Documented By: Admin: 07/29/23 22:55 Dose: 100 mls/hr Documented By: Infusion: 07/29/23 22:55 Dose: Infused Documented By: Admin: 07/29/23 08:17 Dose: 100 mls/hr Documented By: Infusion: 07/29/23 08:17 Dose: Infused Documented By: Admin: 07/29/23 00:28 Dose: 100 mls/hr Documented By: BIPIN Prochlorperazine 5 mg/ Syringe 5 mls @ 5 mls/min IV Q6H PRN PRN Reason: Nausea And Vomiting Stop: 08/27/23 22:35 Last Admin: 07/31/23 08:55 Dose: 5 mls/min Documented By: Admin: 07/30/23 20:14 Dose: 5 mls/min Documented By: Admin: 07/30/23 02:13 Dose: 5 mls/min Documented By: Admin: 07/29/23 15:35 Dose: 5 mls/min Documented By: Admin: 07/29/23 06:41 Dose: 5 mls/min Documented By: Admin: 07/29/23 00:19 Dose: 5 mls/min Documented By: BIPIN Potassium Chloride (K Charles / Wtr) 10 meq in 100 mls @ 100 mls/hr IV Q1H DAVID Stop: 07/29/23 12:44 Last Infusion: 07/29/23 14:29 Dose: Infused Documented By: Admin: 07/29/23 13:15 Dose: 100 mls/hr Documented By: Infusion: 07/29/23 12:15 Dose: Infused Documented By: Admin: 07/29/23 11:12 Dose: 100 mls/hr Documented By: MES Lorazepam 0.25 mg/ Syringe 0.25 mls @ 2 mls/min IV Q8H PRN PRN Reason: Anxiety Stop: 08/27/23 20:12 Last Admin: 07/31/23 08:55 Dose: 2 mls/min Documented By: Admin: 07/30/23 23:10 Dose: 2 mls/min Documented By: MG Metoclopramide HCl (Metoclopramide Hcl 10 Mg Tablet) 10 mg PO Q6 DAVID Stop: 08/28/23 17:59 Last Admin: 07/31/23 12:25 Dose: 10 mg Documented By: Admin: 07/31/23 05:35 Dose: 10 mg Documented By: Admin: 07/30/23 23:10 Dose: 10 mg Documented By: Admin: 07/30/23 17:10 Dose: Not Given Documented By: Admin: 07/30/23 10:41 Dose: 10 mg Documented By: Admin: 07/30/23 05:36 Dose: 10 mg Documented By: Admin: 07/29/23 23:12 Dose: 10 mg Documented By: Admin: 07/29/23 18:31 Dose: Not Given Documented By: LRB Ondansetron HCl (Ondansetron Inj 2 Mg/Ml 2 Ml Vial) 4 mg IV NOW STA Stop: 07/28/23 12:57 Last Admin: 07/28/23 13:24 Dose: 4 mg Documented By: CAW Ondansetron HCl (Ondansetron Inj 2 Mg/Ml 2 Ml Vial) 4 mg IV NOW STA Stop: 07/28/23 18:43 Last Admin: 07/28/23 19:30 Dose: 4 mg Documented By: LAF Ondansetron HCl (Ondansetron Inj 2 Mg/Ml 2 Ml Vial) 4 mg IV Q6H PRN PRN Reason: Nausea Stop: 08/28/23 00:59 Last Admin: 07/31/23 14:32 Dose: 4 mg Documented By: Admin: 07/31/23 06:23 Dose: 4 mg Documented By: Admin: 07/30/23 23:15 Dose: 4 mg Documented By: Admin: 07/30/23 17:09 Dose: 4 mg Documented By: Admin: 07/30/23 09:21 Dose: 4 mg Documented By: Admin: 07/29/23 21:11 Dose: 4 mg Documented By: Admin: 07/29/23 14:01 Dose: 4 mg Documented By: Admin: 07/29/23 08:09 Dose: 4 mg Documented By: Admin: 07/29/23 01:56 Dose: 4 mg Documented By: BIPIN Ondansetron HCl (Ondansetron Inj 2 Mg/Ml 2 Ml Vial) Confirm Administered Dose 4 mg .ROUTE .STK-MED ONE Stop: 07/28/23 23:57 Last Admin: 07/29/23 00:46 Dose: Not Given Documented By: BIPIN Potassium Chloride (Potassium Chloride 10 Meq / 100ml Wtr) Confirm Administered Dose 10 meq IV .STK-MED ONE Stop: 07/29/23 00:33 Last Admin: 07/29/23 01:03 Dose: Not Given Documented By: BIPIN Potassium Chloride (Potassium Chloride Crtab 20 Meq Tabcr) 20 meq PO NOW STA Stop: 07/30/23 07:54 Last Admin: 07/30/23 08:39 Dose: 20 meq Documented By: AAYUSH Potassium Chloride (Potassium Chloride Crtab 20 Meq Tabcr) 40 meq PO NOW STA Stop: 07/31/23 09:29 Last Admin: 07/31/23 10:24 Dose: 40 meq Documented By: AAYUSH Sertraline HCl (Sertraline Hcl 100 Mg Tablet) 100 mg PO HS [facility] Stop: 08/29/23 20:59 Last Admin: 07/30/23 20:14 Dose: 100 mg Documented By: MG Medical Decision Making Differential Diagnosis Gastroenteritis, food borne illness, infections, appendicitis, diverticulitis, inflammatory bowel disease, obstruction, GI bleed, biliary pathology, volvulus, as well as other pathologies. Laboratory Data Attestation: I reviewed the patient's lab results. 07/31/23 05:33 07/31/23 05:33 Lab Results 07/28/23 07/28/23 07/28/23 Range/Units 13:23 14:25 19:47 WBC 12.14 H (4.8-10.8) K/ul RBC 4.33 (4.20-5.40) M/uL Hgb 11.0 L (12.0-16.0) g/dl Hct 32.9 L (37.0-47.0) % MCV 76.0 L (80.0-100.0) fL MCH 25.4 (25.0-34.0) pg MCHC 33.4 (32.0-36.0) g/dL RDW Std Deviation 52.6 H (36.4-46.3) fL RDW Coeff of Shaylee 19.7 H (11.5-14.5) % Plt Count 402 H (130-400) K/uL MPV 9.8 (9.4-12.4) fL Immature Gran % (Auto) 0.4 % Neut % (Auto) 72.2 % Lymph % (Auto) 16.4 % O'Brien % (Auto) 10.7 % Eos % (Auto) 0.0 % Baso % (Auto) 0.3 % Neut # (Auto) 8.76 H (1.40-6.50) K/uL Lymph # (Auto) 1.99 (1.20-3.40) K/uL O'Brien # (Auto) 1.30 H (0.11-0.59) K/uL Eos # (Auto) 0.00 (0.00-0.50) K/uL Baso # (Auto) 0.04 (0.00-0.20) K/uL Immature Gran # (Auto) 0.05 (0.01-0.20) K/uL Sodium 139 (136-145) mmol/L Potassium 3.1 L (3.5-5.1) mmol/L Chloride 99 (98-107) mmol/L Carbon Dioxide 20 L (21-32) mmol/L Anion Gap 20 H (3-11) BUN 14 (6-23) mg/dl Creatinine 0.86 (0.6-1.2) mg/dl Est Cr Clr Drug Dosing 86.3 ml/min Est GFR ( Amer) 112.7 ml/min Est GFR (Non-Af Amer) 97.3 ml/min BUN/Creatinine Ratio 16.3 (10-20) Glucose 86 (70-99(Fasting)) mg/dl Osmolality 288 (280-300) mOsm/kg Lactate 1.1 (0.4-2.0) mmol/L Calcium 10.1 (8.6-10.3) mg/dl Magnesium 2.1 (1.7-2.4) mg/dl Total Bilirubin 0.8 (0.2-1.0) mg/dl AST 22 (13-39) U/L ALT 18 (7-52) U/L Alkaline Phosphatase 70 (34-104) U/L Total Protein 8.1 (6.0-8.3) gm/dl Albumin 4.9 (3.4-5.0) gm/dl Globulin 3.2 (2.5-4.0) gm/dl Albumin/Globulin Ratio 1.5 (0.9-2) Ethyl Alcohol mg/dL < 10.0 (<10.0) mg/dl Adenovirus (PCR) Not Detected (NotDetected) B. pertussis DNA (PCR) Not Detected (NotDetected) B.parapertussis DNA PCR Not Detected (NotDetected) C. pneumoniae DNA (PCR) Not Detected (NotDetected) Coronavirus OC43 (PCR) Not Detected (NotDetected) Coronavirus HKU1 (PCR) Not Detected (NotDetected) Coronavirus 229E (PCR) Not Detected (NotDetected) SARS-CoV-2 (PCR) Not Detected (NotDetected) Coronavirus NL63 (PCR) Not Detected (NotDetected) Human Metapneumovir PCR Not Detected (NotDetected) Influenza Type A (PCR) Not Detected (NotDetected) Influenza Type B (PCR) Not Detected (NotDetected) M. pneumoniae (PCR) Not Detected (NotDetected) Parainfluenza 1 (PCR) Not Detected (NotDetected) Parainfluenza 2 (PCR) Not Detected (NotDetected) Parainfluenza 3 (PCR) Not Detected (NotDetected) Parainfluenza 4 (PCR) Not Detected (NotDetected) RSV (PCR) Not Detected (NotDetected) Entero/Rhino (PCR) Not Detected (NotDetected) 07/28/23 07/29/23 07/30/23 Range/Units 21:17 09:33 06:26 WBC 8.45 8.43 (4.8-10.8) K/ul RBC 4.13 L 4.50 (4.20-5.40) M/uL Hgb 10.3 L 10.5 L 11.5 L (12.0-16.0) g/dl Hct 31.8 L 32.8 L 35.2 L (37.0-47.0) % MCV 79.4 L 78.2 L (80.0-100.0) fL MCH 25.4 25.6 (25.0-34.0) pg MCHC 32.0 32.7 (32.0-36.0) g/dL RDW Std Deviation 56.4 H 53.6 H (36.4-46.3) fL RDW Coeff of Shaylee 19.8 H 19.1 H (11.5-14.5) % Plt Count 254 288 (130-400) K/uL MPV 9.7 10.0 (9.4-12.4) fL Immature Gran % (Auto) 0.4 % Neut % (Auto) 64.7 % Lymph % (Auto) 23.0 % O'Brien % (Auto) 10.7 % Eos % (Auto) 0.7 % Baso % (Auto) 0.5 % Neut # (Auto) 5.48 (1.40-6.50) K/uL Lymph # (Auto) 1.94 (1.20-3.40) K/uL O'Brien # (Auto) 0.90 H (0.11-0.59) K/uL Eos # (Auto) 0.06 (0.00-0.50) K/uL Baso # (Auto) 0.04 (0.00-0.20) K/uL Immature Gran # (Auto) 0.03 (0.01-0.20) K/uL Sodium 137 140 (136-145) mmol/L Potassium 3.4 L 3.3 L (3.5-5.1) mmol/L Chloride 104 105 (98-107) mmol/L Carbon Dioxide 23 28 (21-32) mmol/L Anion Gap 10 7 (3-11) BUN 8 6 (6-23) mg/dl Creatinine 0.80 0.83 (0.6-1.2) mg/dl Est Cr Clr Drug Dosing 92.8 89.4 ml/min Est GFR ( Amer) 123.0 117.7 ml/min Est GFR (Non-Af Amer) 106.1 101.5 ml/min BUN/Creatinine Ratio 10.0 7.2 L (10-20) Glucose 104 H 105 H (70-99(Fasting)) mg/dl Osmolality (280-300) mOsm/kg Lactate (0.4-2.0) mmol/L Calcium 9.2 9.4 (8.6-10.3) mg/dl Magnesium 1.9 (1.7-2.4) mg/dl Total Bilirubin 0.6 (0.2-1.0) mg/dl AST 18 (13-39) U/L ALT 15 (7-52) U/L Alkaline Phosphatase 62 (34-104) U/L Total Protein 6.9 (6.0-8.3) gm/dl Albumin 4.2 (3.4-5.0) gm/dl Globulin 2.7 (2.5-4.0) gm/dl Albumin/Globulin Ratio 1.6 (0.9-2) Ethyl Alcohol mg/dL (<10.0) mg/dl Adenovirus (PCR) (NotDetected) B. pertussis DNA (PCR) (NotDetected) B.parapertussis DNA PCR (NotDetected) C. pneumoniae DNA (PCR) (NotDetected) Coronavirus OC43 (PCR) (NotDetected) Coronavirus HKU1 (PCR) (NotDetected) Coronavirus 229E (PCR) (NotDetected) SARS-CoV-2 (PCR) (NotDetected) Coronavirus NL63 (PCR) (NotDetected) Human Metapneumovir PCR (NotDetected) Influenza Type A (PCR) (NotDetected) Influenza Type B (PCR) (NotDetected) M. pneumoniae (PCR) (NotDetected) Parainfluenza 1 (PCR) (NotDetected) Parainfluenza 2 (PCR) (NotDetected) Parainfluenza 3 (PCR) (NotDetected) Parainfluenza 4 (PCR) (NotDetected) RSV (PCR) (NotDetected) Entero/Rhino (PCR) (NotDetected) MDM Narrative This patient is a 18-year-old female who presents to the emergency department for evaluation of nausea and vomiting x 5 days. Patient seen here last night and provided with IV medications but upon returning home had recurrent vomiting. Patient previously diagnosed with cyclical vomiting syndrome. Labs here do reveal a mild anion gap acidosis which is likely due to the vomiting and dehydration. Patient treated with multiple antiemetics and IV fluids and on multiple reassessment was still vomiting or dry heaving. Given no improvement despite multiple different treatments, I recommended admission for further care. Patient agreeable. Case discussed with the [facility] who agreed to evaluate patient for further care. Impression Intractable vomiting Discharge Plan Visit Data Chief Complaint: Vomiting Stated Complaint: VOMITTING SINCE LAST NIGHT ED Provider: Kleber Waite ED Midlevel Provider: Azul Sparrow Discharge Problem: Intractable vomiting Patient Disposition: Admitted As Inpatient Discharge Instructions Interventions: ED Discharge Assessment Last Done: 07/28/23 19:45
[2023-07-29] MEDS: PROCHLORPERAZINE 5 MG in SYRINGE 4 ML IV PRN (00:19)
[2023-07-29] MEDS: D5W AND LACTATED RINGERS 1,000 ML IV SCH (00:28)
[2023-07-29] MEDS: ONDANSETRON INJ 2 MG/ML 2 ML VIAL ONE (00:46)
[2023-07-29] MEDS: POTASSIUM CHLORIDE 10 MEQ / 100ML WTR IV ONE (01:03)
[2023-07-29] MEDS: ONDANSETRON INJ 2 MG/ML 2 ML VIAL IV PRN (01:56)
[2023-07-29] MEDS ORDERED: ACETAMINOPHEN 1,000 MG/100 ML VIAL IV PRN (03:30)
--- NOTE | 2023-07-29 07:36 | XRay Report ---
XR KUB/Abdomen 1 view CLINICAL HISTORY: obstruction r/o TECHNIQUE: 1 view of the abdomen was obtained. Comparison: Comparison is made to abdomen radiograph 04/08/2023 FINDINGS: Lung bases are unremarkable. The osseous structures are grossly unremarkable. The bowel gas pattern i s nonobstructive. Small stool burden is seen. IMPRESSION: Nonobstructive bowel gas pattern. ACT 112: Negative or not required by law. Electronically signed by: Casey Titus M.D. 07/29/2023 7:34 AM
--- NOTE | 2023-07-29 07:40 | XRay Report ---
XR chest 1V portable CLINICAL HISTORY: Leukocytosis, chills TECHNIQUE: Single frontal radiograph of the chest was obtained. Comparison: Comparison is made to chest radiograph 04/02/2023 FINDINGS: No lines and tubes are seen. The cardiomediastinal silhouette is normal. The lungs are clear. No evid ence of pleural effusion or pneumothorax. IMPRESSION: No acute abnormalities and in particular no radiographic evidence of pneumonia. ACT 112: Negative or not required by law. Electronically signed by: Casey Titus M.D. 07/29/2023 7:38 AM
[2023-07-29] MEDS: FAMOTIDINE 20MG IV PUSH 20 MG/5 ML SYR IV SCH (08:09)
[2023-07-29] MEDS: LORazepam 0.5 MG in SYRINGE 0.25 ML IV PRN (09:04)
[2023-07-29 09:52] LABS: Basophils # (auto) 0.04 K/uL (0.00-0.20); Basophils % (auto) 0.5 %; Eosinophils # (auto) 0.06 K/uL (0.00-0.50); Eosinophils % (auto) 0.7 %; Hematocrit (blood only) 32.8 % (37.0-47.0); Hemoglobin 10.5 g/dl (12.0-16.0); Immature Granulocytes # (auto) 0.03 K/uL (0.01-0.20); Immature Granulocytes % (auto) 0.4 %; Lymphocytes # (auto) 1.94 K/uL (1.20-3.40); Mean Corpuscular Hemoglobin 25.4 pg (25.0-34.0); Mean Corpuscular Volume 79.4 fL (80.0-100.0); Mean Platelet Volume 9.7 fL (9.4-12.4); Monocytes % (auto) 10.7 %; Neutrophils # (auto) 5.48 K/uL (1.40-6.50); Neutrophils % (auto) 64.7 %; Platelet Count 254 K/uL (130-400); RDW Coefficient of Variation 19.8 % (11.5-14.5); RDW Standard Deviation 56.4 fL (36.4-46.3); Red Blood Count 4.13 M/uL (4.20-5.40); White Blood Count 8.45 K/ul (4.8-10.8)
[2023-07-29 10:09] LABS: Albumin Globulin Ratio 1.6 (0.9-2); Albumin Level 4.2 gm/dl (3.4-5.0); Bilirubin,Total 0.6 mg/dl (0.2-1.0); Calcium 9.2 mg/dl (8.6-10.3); Creatinine Clr Calc Pharmacy 92.8 ml/min; Est GFR (Non-African American) 106.1 ml/min; Globulin 2.7 gm/dl (2.5-4.0); Potassium 3.4 mmol/L (3.5-5.1); Total Protein 6.9 gm/dl (6.0-8.3)
[2023-07-29] MEDS: POTASSIUM CHLORIDE / WTR 10 MEQ/100 ML PLCT IV SCH (11:12)
--- NOTE | 2023-07-29 12:35 | Gastrointestinal Consultation ---
Date of Consultation July 29, 2023 Assessment & Plan (1) Nausea & vomiting: Recurrent vomiting in young woman. This could be cyclical vomiting syndrome and if so should resolve over a few days. The fact that she has no issues after getting Ativan suggests perhaps there is a stress/anxiety cause to this. I would put her back on reglan since that seems to have helped before. Dr. Sampson will see her tomorrow to see if he can get more out of her. History of Present Illness Reason for Consultation: vomiting Attending Physician: Ethan Ruiz MD History of Present Illness 18 year old female seen a couple of months ago with vomiting. EGD then was negative. She seemed to have improved on reglan. Said she did well until Wednesday and then started vomiting. She denies stress. She says she may have had a little ache in her stomach. She has been given ativan and cannot stay awake for my exam. But she is not vomiting today. Allergies Allergy/AdvReac Type Severity Reaction Status Date / Time No Known Allergies Allergy Verified 07/28/23 14:21 Home Medications Medication Instructions Recorded Confirmed Type hydroxyzine pamoate 50 mg capsule 50 mg PO Q8H PRN sleep/anxiety #15 01/26/23 07/28/23 Rx (Vistaril) caps lorazepam 1 mg tablet 1 mg PO BID PRN anxiety #6 tabs 01/26/23 07/28/23 Rx ferrous sulfate 325 mg (65 mg 325 mg PO QAM 04/02/23 07/28/23 History iron) tablet prochlorperazine maleate 10 mg 10 mg PO Q6H PRN nausea and 04/02/23 07/28/23 Rx tablet (Compazine) vomiting #10 tabs metoclopramide HCl 10 mg tablet 10 mg PO TID PRN nausea and 04/09/23 07/28/23 Rx vomiting 7 days #28 tabs promethazine 25 mg tablet 25 mg PO Q6H PRN nausea and 07/27/23 07/28/23 Rx vomiting #20 tabs methylphenidate HCl 36 mg 36 mg PO DAILY 07/28/23 07/28/23 History tablet,extended release 24 hr (Concerta) sertraline 100 mg tablet 100 mg PO HS 07/28/23 07/28/23 History Patient History Medical History Anxiety No pertinent past medical history Surgical History History of nasal surgery History of ankle surgery Social History Smoking Status: Never smoker Second Hand Exposure: No; Do You Dip or Chew Tobacco: No; Tobacco Cessation Education Requested by Patient: No Hx Alcohol Use: No Hx Substance Use: No Preferred Language: Maltese Communication Ability: Effective Host And Hostess Required: No Beliefs That Will Affect Care: None Current Living Situation: Other Current Living Situation Comment: apartment with 3 other people Other Information That Helps Us Care for You: No Feels Safe at Home: Yes Safety Concerns: Feels Safe At This Time Assistive Devices: None Review of Systems Review of Systems: Unobtainable due to cognitive status Results & Data Vital Signs (Past 12 Hours) Vital Signs Pulse Resp BP Pulse Ox O2 Del Method 07/29/23 07:54 51 L 15 134/58 L 95 Room Air Laboratory Results 07/29/23 07/28/23 07/28/23 Range/Units 09:33 21:17 19:47 WBC 8.45 (4.8-10.8) K/ul RBC 4.13 L (4.20-5.40) M/uL Hgb 10.5 L 10.3 L (12.0-16.0) g/dl Hct 32.8 L 31.8 L (37.0-47.0) % MCV 79.4 L (80.0-100.0) fL MCH 25.4 (25.0-34.0) pg MCHC 32.0 (32.0-36.0) g/dL RDW Std Deviation 56.4 H (36.4-46.3) fL RDW Coeff of Shaylee 19.8 H (11.5-14.5) % Plt Count 254 (130-400) K/uL MPV 9.7 (9.4-12.4) fL Immature Gran % (Auto) 0.4 % Neut % (Auto) 64.7 % Lymph % (Auto) 23.0 % [place] % (Auto) 10.7 % Eos % (Auto) 0.7 % Baso % (Auto) 0.5 % Neut # (Auto) 5.48 (1.40-6.50) K/uL Lymph # (Auto) 1.94 (1.20-3.40) K/uL [place] # (Auto) 0.90 H (0.11-0.59) K/uL Eos # (Auto) 0.06 (0.00-0.50) K/uL Baso # (Auto) 0.04 (0.00-0.20) K/uL Immature Gran # (Auto) 0.03 (0.01-0.20) K/uL Sodium 137 (136-145) mmol/L Potassium 3.4 L (3.5-5.1) mmol/L Chloride 104 (98-107) mmol/L Carbon Dioxide 23 (21-32) mmol/L Anion Gap 10 (3-11) BUN 8 (6-23) mg/dl Creatinine 0.80 (0.6-1.2) mg/dl Est Cr Clr Drug Dosing 92.8 ml/min Est GFR ( Amer) 123.0 ml/min Est GFR (Non-Af Amer) 106.1 ml/min BUN/Creatinine Ratio 10.0 (10-20) Glucose 104 H (70-99(Fasting)) mg/dl Osmolality (280-300) mOsm/kg Lactate 1.1 (0.4-2.0) mmol/L Calcium 9.2 (8.6-10.3) mg/dl Magnesium (1.7-2.4) mg/dl Total Bilirubin 0.6 (0.2-1.0) mg/dl AST 18 (13-39) U/L ALT 15 (7-52) U/L Alkaline Phosphatase 62 (34-104) U/L Total Protein 6.9 (6.0-8.3) gm/dl Albumin 4.2 (3.4-5.0) gm/dl Globulin 2.7 (2.5-4.0) gm/dl Albumin/Globulin Ratio 1.6 (0.9-2) Ethyl Alcohol mg/dL < 10.0 (<10.0) mg/dl Adenovirus (PCR) (NotDetected) B. pertussis DNA (PCR) (NotDetected) B.parapertussis DNA PCR (NotDetected) C. pneumoniae DNA (PCR) (NotDetected) Coronavirus OC43 (PCR) (NotDetected) Coronavirus HKU1 (PCR) (NotDetected) Coronavirus 229E (PCR) (NotDetected) SARS-CoV-2 (PCR) (NotDetected) Coronavirus NL63 (PCR) (NotDetected) Human Metapneumovir PCR (NotDetected) Influenza Type A (PCR) (NotDetected) Influenza Type B (PCR) (NotDetected) M. pneumoniae (PCR) (NotDetected) Parainfluenza 1 (PCR) (NotDetected) Parainfluenza 2 (PCR) (NotDetected) Parainfluenza 3 (PCR) (NotDetected) Parainfluenza 4 (PCR) (NotDetected) RSV (PCR) (NotDetected) Entero/Rhino (PCR) (NotDetected) 07/28/23 07/28/23 Range/Units 14:25 13:23 WBC 12.14 H (4.8-10.8) K/ul RBC 4.33 (4.20-5.40) M/uL Hgb 11.0 L (12.0-16.0) g/dl Hct 32.9 L (37.0-47.0) % MCV 76.0 L (80.0-100.0) fL MCH 25.4 (25.0-34.0) pg MCHC 33.4 (32.0-36.0) g/dL RDW Std Deviation 52.6 H (36.4-46.3) fL RDW Coeff of Shaylee 19.7 H (11.5-14.5) % Plt Count 402 H (130-400) K/uL MPV 9.8 (9.4-12.4) fL Immature Gran % (Auto) 0.4 % Neut % (Auto) 72.2 % Lymph % (Auto) 16.4 % [place] % (Auto) 10.7 % Eos % (Auto) 0.0 % Baso % (Auto) 0.3 % Neut # (Auto) 8.76 H (1.40-6.50) K/uL Lymph # (Auto) 1.99 (1.20-3.40) K/uL [place] # (Auto) 1.30 H (0.11-0.59) K/uL Eos # (Auto) 0.00 (0.00-0.50) K/uL Baso # (Auto) 0.04 (0.00-0.20) K/uL Immature Gran # (Auto) 0.05 (0.01-0.20) K/uL Sodium 139 (136-145) mmol/L Potassium 3.1 L (3.5-5.1) mmol/L Chloride 99 (98-107) mmol/L Carbon Dioxide 20 L (21-32) mmol/L Anion Gap 20 H (3-11) BUN 14 (6-23) mg/dl Creatinine 0.86 (0.6-1.2) mg/dl Est Cr Clr Drug Dosing 86.3 ml/min Est GFR ( Amer) 112.7 ml/min Est GFR (Non-Af Amer) 97.3 ml/min BUN/Creatinine Ratio 16.3 (10-20) Glucose 86 (70-99(Fasting)) mg/dl Osmolality 288 (280-300) mOsm/kg Lactate (0.4-2.0) mmol/L Calcium 10.1 (8.6-10.3) mg/dl Magnesium 2.1 (1.7-2.4) mg/dl Total Bilirubin 0.8 (0.2-1.0) mg/dl AST 22 (13-39) U/L ALT 18 (7-52) U/L Alkaline Phosphatase 70 (34-104) U/L Total Protein 8.1 (6.0-8.3) gm/dl Albumin 4.9 (3.4-5.0) gm/dl Globulin 3.2 (2.5-4.0) gm/dl Albumin/Globulin Ratio 1.5 (0.9-2) Ethyl Alcohol mg/dL (<10.0) mg/dl Adenovirus (PCR) Not Detected (NotDetected) B. pertussis DNA (PCR) Not Detected (NotDetected) B.parapertussis DNA PCR Not Detected (NotDetected) C. pneumoniae DNA (PCR) Not Detected (NotDetected) Coronavirus OC43 (PCR) Not Detected (NotDetected) Coronavirus HKU1 (PCR) Not Detected (NotDetected) Coronavirus 229E (PCR) Not Detected (NotDetected) SARS-CoV-2 (PCR) Not Detected (NotDetected) Coronavirus NL63 (PCR) Not Detected (NotDetected) Human Metapneumovir PCR Not Detected (NotDetected) Influenza Type A (PCR) Not Detected (NotDetected) Influenza Type B (PCR) Not Detected (NotDetected) M. pneumoniae (PCR) Not Detected (NotDetected) Parainfluenza 1 (PCR) Not Detected (NotDetected) Parainfluenza 2 (PCR) Not Detected (NotDetected) Parainfluenza 3 (PCR) Not Detected (NotDetected) Parainfluenza 4 (PCR) Not Detected (NotDetected) RSV (PCR) Not Detected (NotDetected) Entero/Rhino (PCR) Not Detected (NotDetected) Diagnostic Findings Chest X-Ray 07/28/23 20:11 XR chest 1V portable CLINICAL HISTORY: Leukocytosis, chills TECHNIQUE: Single frontal radiograph of the chest was obtained. Comparison: Comparison is made to chest radiograph 04/02/2023 FINDINGS: No lines and tubes are seen. The cardiomediastinal silhouette is normal. The lungs are clear. No evidence of pleural effusion or pneumothorax. IMPRESSION: No acute abnormalities and in particular no radiographic evidence of pneumonia. ACT 112: Negative or not required by law. Electronically signed by: Casey Titus M.D. 07/29/2023 7:38 AM KUB X-Ray 07/28/23 21:13 XR KUB/Abdomen 1 view CLINICAL HISTORY: obstruction r/o TECHNIQUE: 1 view of the abdomen was obtained. Comparison: Comparison is made to abdomen radiograph 04/08/2023 FINDINGS: Lung bases are unremarkable. The osseous structures are grossly unremarkable. The bowel gas pattern is nonobstructive. Small stool burden is seen. IMPRESSION: Nonobstructive bowel gas pattern. ACT 112: Negative or not required by law. Electronically signed by: Casey Titus M.D. 07/29/2023 7:34 AM
--- NOTE | 2023-07-29 12:39 | Hospitalist Progress Note ---
Date of Service July 29, 2023 Assessment & Plan (1) Nausea & vomiting: Plan: - Intractable N/V and chills that began on 07/23/23. Similar to prior episode in March 2023 where patient was hospitalized at [facility] for 10 days. - Family history of autonomic gastroparesis. No documentation of gastric emptying study for this patient. - Patient took Zofran and Phenergan at home, with no improvement. - BioFire negative. CXR and KUB show no acute abnormalities. - Zofran every 4 hours as needed. Consider Phenergan if refractory. Compazine 5 mg IV every 6 hours as needed for breakthrough nausea and vomiting. - GI consulted: They feel as though there could be a stress/anxiety cause to this recurrent vomiting. Recommend Reglan since that helped previously. - Continue Reglan 10 mg p.o. every 6 hours. - N.p.o. for now. Advance as tolerated. (2) Hemoptysis: Plan: - Patient does endorse blood in her vomit - Unclear etiology; GI bleed vs ezequiel selena tear vs erosive esophagitis - Famotidine 20 mg IV daily to cover for erosive esophagitis - Protonix 40 mg IV BID (3) Metabolic acidosis: Plan: - Anion gap elevated at 20 on admission, now resolved - Lactate, Serum Osm, and medical alcohol WNL - Suspect starvation ketoacidosis in setting of poor oral intake - IVF resuscitation with D5LR at 100mL/hr x 3 (4) Anemia: Plan: - Hgb 11.0 on arrival - In the setting of reported hemoptysis, cannot rule out GI bleed, Ezequiel-Navarro tear - Protonix 40 g IV BID - Trend H&H (5) Anxiety: Plan: Ativan 0.5mg IV q8h as needed (6) Hypokalemia: Plan: Mild; K 3.1 on arrival, repleted (7) Marijuana use: Plan: - Marijuana positive on 07/26 - Patient reports she stopped using marijuana after hospitalization in March 2023 - Unclear if contributing factor Plan CODE STATUS: Full code VTE PPx: SCDs (hold chemical DVT PPx in the setting of reported hemoptysis) Admission and Anticipated Discharge Date Admission Date: July 28, 2023 Subjective Patient seen and evaluated at bedside. She was very sleepy after receiving Ativan. She reports continued nausea with vomiting, but states the Ativan has helped. She reports this is similar to her last episode in March 2023 where it was determined to be cyclical vomiting syndrome. A full review of systems was not obtained due to the patient continuously falling asleep during my evaluation. Physical Exam Physical Exam: General: No acute distress, nondiaphoretic, well-developed, well-nourished. Drowsy in setting of Ativan. Skin: The skin was warm, dry, without rashes, erythema, edema, or bruising. Cardiac: Regular rate and rhythm without murmurs gallops or rubs. Pulm: Clear to auscultation bilaterally without wheezes, rales or rhonchi. No retractions or accessory muscle use. Abdominal: Positive bowel sounds x 4. Soft, nontender, without masses or organomegaly. No guarding or rebound tenderness. Neuro: A&O x3. No focal neurological deficits. Results & Data Results & Data Vital Signs (Past 12 Hours) Vital Signs Pulse Resp BP Pulse Ox O2 Del Method 07/29/23 07:54 51 L 15 134/58 L 95 Room Air Laboratory Results Reviewed CBC Reviewed CMP PG Care Time/CCT Total # of Minutes Spent Total Time Spent with Patient: Total time spent is greater than 50% in coordination of care (as documented) at patient's floor/unit and/or counseling patient: Coding Level of Care Code 25396 SUB INP/OBS CARE 2/35MIN Diagnoses Nausea & vomiting R11.2 Hemoptysis R04.2 Metabolic acidosis E87.20 Anemia D64.9 Anxiety F41.9 Hypokalemia E87.6 Marijuana use F12.90
[2023-07-29] MEDS: METOCLOPRAMIDE HCL 10 MG TABLET PO SCH (18:31)
--- NOTE | 2023-07-29 22:45 | Electrocardiogram Report ---
Test Reason : Blood Pressure : / mmHG Vent. Rate : 052 BPM Atrial Rate : 052 BPM P-R Int : 126 ms QRS Dur : 086 ms QT Int : 458 ms P-R-T Axes : 053 059 054 degrees QTc Int : 425 ms Sinus bradycardia Otherwise normal ECG When compared with ECG of 09-APR-2023 09:30, No significant change was found Confirmed by Syed Florez ([id number]) on 07/29/2023 10:45:30 PM Referred By: REFERRED SELF Confirmed By:Syed Florez
[2023-07-30 07:05] LABS: Hematocrit (blood only) 35.2 % (37.0-47.0); Hemoglobin 11.5 g/dl (12.0-16.0); Mean Corpuscular Hemoglobin 25.6 pg (25.0-34.0); Mean Corpuscular Hgb Conc 32.7 g/dL (32.0-36.0); Mean Corpuscular Volume 78.2 fL (80.0-100.0); Platelet Count 288 K/uL (130-400); RDW Coefficient of Variation 19.1 % (11.5-14.5); RDW Standard Deviation 53.6 fL (36.4-46.3); White Blood Count 8.43 K/ul (4.8-10.8)
[2023-07-30 07:31] LABS: BUN Creatinine Ratio 7.2 (10-20); Calcium 9.4 mg/dl (8.6-10.3); Creatinine Clr Calc Pharmacy 89.4 ml/min; Est GFR (African American) 117.7 ml/min; Est GFR (Non-African American) 101.5 ml/min; Magnesium 1.9 mg/dl (1.7-2.4); Potassium 3.3 mmol/L (3.5-5.1)
[2023-07-30] MEDS: POTASSIUM CHLORIDE CRTAB 20 MEQ TABCR PO STA (08:39)
--- NOTE | 2023-07-30 11:28 | Communication Note ---
Date of Service: July 30, 2023 I went to see the patient this morning. father was at bedside. she has history of intractable nausea, vomiting, and chills that began on 07/23/23. Similar to prior episode in March 2023 where patient was hospitalized at [facility] for 10 days. Family history of autonomic gastroparesis. she does not appear to have had GES testing. Patient is hard to discuss care with as she is very lethargic from ativan. Her father does report one episode of emesis this morning after drinking water. patient tells me she had a few episodes last night. she does report some reflux as well as epigastric abdominal pain. - continue with protonix 40mg bid, famotidine 20mg q AM, and reglan 10mg q 6 hours prn. - to consider outpatient GES testing. she can follow up on this with her regular GI provider at [facility] upon discharge. Agree with DAMASO Falcon as above Interviewed and examined patient and agree with above Abd: Soft, NT, ND, +BS Continue current therapy and supportive care Outpatient GES
--- NOTE | 2023-07-30 13:17 | Hospitalist Progress Note ---
Date of Service July 30, 2023 Assessment & Plan (1) Nausea & vomiting: Plan: - Intractable N/V and chills that began on 07/23/23. Similar to prior episode in March 2023 where patient was hospitalized at [facility] for 10 days. - Family history of autonomic gastroparesis. No documentation of gastric emptying study for this patient. - Patient took Zofran and Phenergan at home, with no improvement. - BioFire negative. CXR and KUB show no acute abnormalities. - Zofran every 4 hours as needed. Consider Phenergan if refractory. Compazine 5 mg IV every 6 hours as needed for breakthrough nausea and vomiting. - GI consulted: They feel as though there could be a stress/anxiety cause to this recurrent vomiting. Recommend Reglan since that helped previously. - Continue Reglan 10 mg p.o. every 6 hours. Continue Protonix 40 mg twice daily. Continue famotidine 20 mg every morning. - Continue clear liquid diet. Advance as tolerated. - Upper GI series imaging attempted, however patient could not drink the barium. Recommend outpatient gastric emptying study. (2) Hemoptysis: Plan: - Patient does endorse blood in her vomit - Unclear etiology; GI bleed vs ezequiel selena tear vs erosive esophagitis - Famotidine 20 mg IV daily to cover for erosive esophagitis - Protonix 40 mg IV BID (3) Metabolic acidosis: Plan: - Anion gap elevated at 20 on admission, now resolved - Lactate, Serum Osm, and medical alcohol WNL - Suspect starvation ketoacidosis in setting of poor oral intake - IVF resuscitation with D5LR at 100mL/hr x 3 (4) Anemia: Plan: - Hgb 11.0 on arrival - In the setting of reported hemoptysis, cannot rule out GI bleed, Ezequiel-Navarro tear - Protonix 40 g IV BID - Trend H&H (5) Anxiety: Plan: - Patient takes 100 mg sertraline at home. - Added BuSpar 10 mg p.o. twice daily to regimen. - Ativan 0.25mg IV q8h as needed (6) Hypokalemia: Plan: Mild; K 3.1 on arrival, repleted (7) Marijuana use: Plan: - Marijuana positive on 07/26 - Patient reports she stopped using marijuana after hospitalization in March 2023 - Unclear if contributing factor Plan CODE STATUS: Full code VTE PPx: SCDs (hold chemical DVT PPx in the setting of reported hemoptysis) Admission and Anticipated Discharge Date Admission Date: July 30, 2023 Subjective Patient seen and evaluated at bedside. She was awake and sitting up in bed today. She reports that the Ativan knocks her out. She reports continued nausea with vomiting last night and this morning. She also complains of some right-sided abdominal pain. She has not had a bowel movement for a few days, and states she is unsure if she is passing gas. We had a discussion about pulling back on the Ativan, which she was agreeable to. We also discussed her anxiety control. She reports that Zoloft helps, but she is still very anxious at baseline which is further exacerbated when in the hospital. We talked about adding BuSpar as well, which she was agreeable to. Other than the nausea, vomiting, and minor abdominal pain, she has no other complaints at this time. Physical Exam Physical Exam: General: No acute distress, nondiaphoretic, well-developed, well-nourished. Drowsy in setting of Ativan. Skin: The skin was warm, dry, without rashes, erythema, edema, or bruising. Cardiac: Regular rate and rhythm without murmurs gallops or rubs. Pulm: Clear to auscultation bilaterally without wheezes, rales or rhonchi. No retractions or accessory muscle use. Abdominal: Hypoactive bowel sounds. Minimal tenderness to palpation on the right side. Soft, without masses or organomegaly. No guarding or rebound tend erness. Neuro: A&O x3. No focal neurological deficits. Results & Data Results & Data Vital Signs (Past 12 Hours) Vital Signs Temp Pulse Pulse Resp BP Pulse Ox O2 Del Method 07/30/23 11:28 37.2 C 62 18 157/80 H 99 Room Air 07/30/23 09:00 94 H 07/30/23 07:38 37.3 C 57 L 16 158/86 H 99 Room Air 07/30/23 02:21 36.5 C 79 18 135/80 95 Room Air Laboratory Results Reviewed CBC Reviewed chemistries PG Care Time/CCT Total # of Minutes Spent Total Time Spent with Patient: Total time spent is greater than 50% in coordination of care (as documented) at patient's floor/unit and/or counseling patient: Coding Level of Care Code 48646 SUB INP/OBS CARE 235MIN Diagnoses Nausea & vomiting R11.2 Hemoptysis R04.2 Metabolic acidosis E87.20 Anemia D64.9 Anxiety F41.9 Hypokalemia E87.6 Marijuana use F12.90
[2023-07-30] MEDS: busPIRone 5 MG TAB PO SCH (20:14)
[2023-07-30] MEDS: SERTRALINE HCL 100 MG TABLET PO SCH (20:14)
[2023-07-30] MEDS: LORazepam 0.25 MG in SYRINGE 0.125 ML IV PRN (23:10)
[2023-07-31 06:07] LABS: Hematocrit (blood only) 33.7 % (37.0-47.0); Hemoglobin 11.2 g/dl (12.0-16.0); Mean Corpuscular Hemoglobin 25.9 pg (25.0-34.0); Mean Corpuscular Hgb Conc 33.2 g/dL (32.0-36.0); Platelet Count 264 K/uL (130-400); RDW Coefficient of Variation 18.9 % (11.5-14.5); RDW Standard Deviation 53.1 fL (36.4-46.3); Red Blood Count 4.32 M/uL (4.20-5.40); White Blood Count 11.43 K/ul (4.8-10.8)
[2023-07-31 06:17] LABS: BUN Creatinine Ratio 13.3 (10-20); Calcium 9.7 mg/dl (8.6-10.3); Creatinine Clr Calc Pharmacy 82.5 ml/min; Est GFR (African American) 106.7 ml/min; Magnesium 2.1 mg/dl (1.7-2.4); Potassium 3.3 mmol/L (3.5-5.1)
--- NOTE | 2023-07-31 09:41 | Hospitalist Progress Note ---
Date of Service July 31, 2023 Assessment & Plan (1) Nausea & vomiting: Plan: - Intractable N/V and chills that began on 07/23/23. Similar to prior episode in March 2023 where patient was hospitalized at [facility] for 10 days. - Family history of autonomic gastroparesis. No documentation of gastric emptying study for this patient. - Patient took Zofran and Phenergan at home, with no improvement. - BioFire negative. CXR and KUB showed no acute abnormalities. - Zofran every 4 hours as needed. Consider Phenergan if refractory. Compazine 5 mg IV every 6 hours as needed for breakthrough nausea and vomiting. - GI consulted: They feel as though there could be a stress/anxiety cause to this recurrent vomiting. - Continue Reglan 10 mg p.o. every 6 hours. Continue Protonix 40 mg twice daily. Continue famotidine 20 mg every morning. - Continue clear liquid diet. Advance as tolerated. - Upper GI series imaging attempted, however patient could not drink the barium. Recommend outpatient gastric emptying study. (2) Anxiety: Plan: - Patient takes 100 mg sertraline at home. - Added BuSpar 10 mg p.o. twice daily to regimen. - Ativan 0.25mg IV q8h as needed (3) Marijuana use: Plan: - Marijuana positive on 07/26 - Patient reports she stopped using marijuana after hospitalization in March 2023 - Unclear if contributing factor - Possible cannabinoid hyperemesis syndrome -- Patient continues to request multiple hot showers throughout the day. States this is the only modality that helps her nausea. -- Consider capsaicin cream to relieve abdominal discomfort. -- Counseled patient on importance of avoiding cannabis. (4) Hypokalemia: Plan: - K 3.1 on arrival, repleted - Despite repletion, patient remained hypokalemic. - 07/31/23: one time 40 meq given in AM, and 20 meq QAM ordered (5) Anemia: Plan: - Hgb 11.0 on arrival. Hgb has remained stable. - In the setting of reported hemoptysis, cannot rule out GI bleed, Ezequiel-Navarro tear - Protonix 40 g IV BID - Trend H&H (6) Hemoptysis: Plan: - Patient endorsed blood in her vomit prior to admission. No hemoptysis noted while inpatient. - Unclear etiology; GI bleed vs ezequiel selena tear vs erosive esophagitis - Famotidine 20 mg IV daily to cover for erosive esophagitis - Protonix 40 mg IV BID (7) Metabolic acidosis: Plan: - Anion gap elevated at 20 on admission, now resolved - Lactate, Serum Osm, and medical alcohol WNL - Suspect starvation ketoacidosis in setting of poor oral intake Plan CODE STATUS: Full code VTE PPx: SCDs (hold chemical DVT PPx in the setting of reported hemoptysis) Admission and Anticipated Discharge Date Admission Date: July 30, 2023 Physical Exam Physical Exam: General: No acute distress, nondiaphoretic, well-developed, well-nourished. Skin: The skin was warm, dry, without rashes, erythema, edema, or bruising. Cardiac: Regular rate and rhythm without murmurs gallops or rubs. Pulm: Clear to auscultation bilaterally without wheezes, rales or rhonchi. No retractions or accessory muscle use. Abdominal: Hypoactive bowel sounds. Minimal tenderness to palpation on the right side. Soft, without masses or organomegaly. No guarding or rebound tenderness. Neuro: A&O x3. No focal neurological deficits. Results & Data Results & Data Vital Signs (Past 12 Hours) Vital Signs Temp Pulse Pulse Resp BP Pulse Ox O2 Del Method 07/31/23 08:08 36.5 C 73 17 149/87 H 96 Room Air 07/30/23 23:18 36.9 C 64 16 169/90 H 97 Room Air 07/30/23 23:07 55 L Laboratory Results Reviewed CBC Reviewed chemistries PG Care Time/CCT Total # of Minutes Spent Total Time Spent with Patient: Total time spent is greater than 50% in coordination of care (as documented) at patient's floor/unit and/or counseling patient: Coding Diagnoses Nausea & vomiting R11.2 Anxiety F41.9 Marijuana use F12.90 Hypokalemia E87.6 Anemia D64.9 Hemoptysis R04.2 Metabolic acidosis E87.20
[2023-07-31] MEDS: POTASSIUM CHLORIDE CRTAB 20 MEQ TABCR PO STA (10:24)
--- NOTE | 2023-07-31 16:03 | Discharge Summary ---
Date of Service July 31, 2023 Admission HPI Per Admitting Provider Candy is a 18-year-old female with PMH of anxiety, ADHD, bradycardia, and GI bleed. She initially presented on 07/26 for evaluation of intractable nausea and vomiting. She returned on 07/27 as her symptoms did not resolve at home. Patient denies any chance of being this time. Her symptoms began on Saturday 07/22. She reports it is similar to her prior cyclical vomiting syndrome in March 2023, which required hospitalization at [facility] for 10 days. Nausea and vomiting have been fairly constant, and patient has been trying to take both Zofran and Phenergan at home, without relief. She reports that she has had some blood in her vomit as well, and that she is having severe sore throat pain. Additional symptoms include chills, trouble breathing during episodes of dry heaves and vomiting, and dizziness/lightheadedness. Of note, the patient reports that she has not had a bowel movement since before Wednesday. Unsure when her last bowel movement was she denies history of GI bleeds. She denies history of recent alcohol use. She reports that she stopped using marijuana after her hospitalization in the summer 2022. She denies other recreational drug use. She has not been tolerating solids or liquids. Reports she has not eaten in 3 days. No recent changes in diet prior to onset of nausea vomiting. Patient is a [employer] student. She is hypertensive at 144/103 at time of admission; also bradycardic at 54 bpm. ED Course: NSS 1000 mL IV x 2 Diphenhydramine 25 mg IV Zofran 4 mg IV Compazine 2 mL IV ROS: Patient endorses chills, sweating, dizziness/lightheadedness, tingling in hands, passing out, bruising easily, chest pain (from throwing up), throat pain, SOB when nauseated, N/V, blood in vomiting, Patient denies fever, diarrhea, headaches, Admission Exam Per Admitting Provider General: Acute dry heaving, and physical distress; chills; anxious; cooperative; 99% SpO2 on RA HEENT: normocephalic, atraumatic; no scleral icterus; PERRLA; dry mucus membrane; vision and hearing grossly intact Neck: supple; no lymphadenopathy; trachea midline Skin: warm, dry without signs of tenting; no cyanosis; no rashes, bruising, lesions, or erythema noted CV: chest wall NTP; RRR; S1/S2 normal; no murmurs/rubs/gallops; pulses intact and symmetric at radial, DP, and PT Lungs: no acute respiratory distress; symmetrical chest wall expansion; clear breath sounds across all lung crooks w/o adventitious sounds; no wheezing ABD: Soft, NTP; BS present; no rebound/guarding; no distention; abdomen without rashes, erythema, or signs of active bleeding MSK: no tics or fasciculations; no edema noted in the LEs b/l, nonerythematous Neuro: A&Ox3; anxious in the normal mood and affect; fluent speech; no focal deficits; sensation grossly intact in the LEs b/l Principal Diagnosis Intractable nausea and vomiting Constipation Anxiety Hypokalemia Discharge Exam General: No acute distress, nondiaphoretic, well-developed, well-nourished. Skin: The skin was warm, dry, without rashes, erythema, edema, or bruising. Cardiac: Regular rate and rhythm without murmurs gallops or rubs. Pulm: Clear to auscultation bilaterally without wheezes, rales or rhonchi. No retractions or accessory muscle use. Abdominal: Hypoactive bowel sounds. Minimal tenderness to palpation on the right side. Soft, without masses or organomegaly. No guarding or rebound tenderness. Neuro: A&O x3. No focal neurological deficits. 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 Similar to prior episode in March 2023 where patient was hospitalized at [facility] for 10 days. - Family history of autonomic gastroparesis. No documentation of gastric emptying study for this patient. - Patient took Zofran and Phenergan at home, with no improvement. - On presentation, BioFire negative, CXR and KUB showed no acute abnormalities. - GI consulted: They feel as though there could be a stress/anxiety cause to this recurrent vomiting. - Upper GI series imaging attempted, however patient could not drink the barium. - Recommend outpatient gastric emptying study. - Patient requested to be discharged despite continued nausea with vomiting and reportedly no bowel movements for 8 days. -- Recommended daily MiraLAX for constipation. - Upon discharge: -- Continue Reglan 10 mg p.o. every 6 hours x 10 days. Continue Protonix 40 mg twice daily x 10 days. Continue famotidine 20 mg every morning x 10 days. -- Continue clear liquid diet. Advance as tolerated. (2) Anxiety: - Patient takes 100 mg sertraline at home. - Added BuSpar 10 mg p.o. twice daily to regimen. - Patient required multiple doses of IV Ativan while inpatient. This made her extremely drowsy. I counseled the patient on other alternatives for anxiety management, as noted above. (3) Marijuana use: - Marijuana positive on 07/26 - Patient reports she stopped using marijuana after hospitalization in March 2023 - Unclear if contributing factor - Possible cannabinoid hyperemesis syndrome -- Patient continues to request multiple hot showers throughout the day. States this is the only modality that helps her nausea. -- Consider capsaicin cream to relieve abdominal discomfort. -- Counseled patient on importance of avoiding cannabis. (4) Hypokalemia: - K 3.1 on arrival, repleted - Despite repletion, patient remained hypokalemic. - Supplemental potassium 20 mEq recommended on discharge (5) Hematemesis: - Patient endorsed blood in her vomit prior to admission. No hemoptysis noted while inpatient. - Unclear etiology; GI bleed vs ezequiel selena tear vs erosive esophagitis - IV Famotidine to cover for erosive esophagitis, continue with p.o. famotidine on discharge - IV Protonix while inpatient, continue with p.o. Protonix on discharge (6) Anemia: - Chronic anemia, takes ferrous sulfate 325 mg PO daily at home. - Hgb 11.0 on arrival. Hgb has remained stable. (7) Metabolic acidosis: - Anion gap elevated at 20 on admission, now resolved - Lactate, Serum Osm, and medical alcohol WNL - Suspect starvation ketoacidosis in setting of poor oral intake Plan CODE STATUS: Full code VTE PPx: SCDs (hold chemical DVT PPx in the setting of reported hemoptysis) Total Time Total Time Spent Total Time Spent (In Minutes): Greater than 30 minutes spent completing this discharge process including direct patient care, medication reconciliation, documentation, review of labs and images, and coordination of care. Discharge Plan Discharge Items Patient Disposition: Home - Self-Care Reason For Visit: INTRACTABLE N/V Discharge Diagnosis: Intractable nausea and vomiting Constipation Activity: Resume your previous activity Non-emergency contact: Primary Care Provider Call non-emergency contact if: you have any medication questions and your symptoms worsen Follow-up/Referrals: [facility] [Primary Care Provider] - Diet: Clear liquid and Other - See Diet Comment Diet Comment: Continue with clear liquid diet. Advance diet as tolerated. Addtl Attending Provider Instructions: Candy, You were admitted to the hospital due to intractable nausea and vomiting. You had a chest x-ray and abdominal x-ray while in the hospital, which both showed no acute abnormalities. An upper GI series imaging was attempted, however due to not being able to drink the barium, this was not able to be completed. I recommend having a gastric emptying study done outpatient. The gastroenterology team saw you and they agree with the need for a gastric emptying study. Additionally, they feel as though anxiety could be a contributing factor. You were started on another medication (BuSpar) as an adjunct to your current regimen of Zoloft. Your prescription for this, as well as the other medications you are currently taking for the nausea and vomiting have been sent to the pharmacy on [facility]. Finally, it is important to refrain from any marijuana use. Marijuana use can lead to cannabinoid hyperemesis syndrome, which can cause persistent nausea and vomiting, intense abdominal pain, and loss of appetite. Upon discharge from the hospital: * Continue Reglan 10 mg every 6 hours for the next 10 days. This is a treatment for gastroparesis. * Continue Protonix 40 mg twice daily for the next 10 days. This medication decreases the amount of acid produced by the stomach. * Continue famotidine 20 mg every morning for the next 10 days. This medication also decreases the amount of acid produced by the stomach. * Continue BuSpar 10 mg twice daily. This is to be used in addition to your Zoloft to help control anxiety. * Start potassium supplementation 20 mEq daily. While you are in the hospital, your potassium levels have been slightly low. This can easily be fixed with this potassium supplementation. * Please take MiraLAX you can get this [id number] (OTC). Take 1 capful of MiraLAX and mix it with 8 ounces of juice to help with constipation. * Refrain from any marijuana use, this includes smoking, edibles, oils, and tinctures. * Follow-up with your PCP and GI. Their offices will call you this week to schedule appointment dates and times. * Please follow a clear liquid diet until the nausea and vomiting begins to improve. Then slowly advance your diet as tolerated. Drink plenty of fluids to prevent dehydration. Please return to the hospital if you experience any of the following symptoms: Fever of 100.4 or higher, continued severe nausea with vomiting, less urine than usual, severe pain, rapid heart rate, chest pain, trouble breathing, confusion, drowsiness or trouble waking up, fainting or loss of consciousness. It was a pleasure taking care of you while you were in the hospital, Candy Gurrola PA-C Pending Studies at Discharge: No Stand-Alone Forms: [facility] [email or web address], Smoking Cessation Medications and DC Order Prescriptions: New buspirone 5 mg Tablet 10 mg PO BID Qty: 60 0RF potassium chloride 20 mEq Tablet,Er Particles/Crystals 20 meq PO QAM Qty: 30 0RF metoclopramide HCl 10 mg Tablet 10 mg PO Q6 Qty: 40 0RF pantoprazole [Protonix] 40 mg tablet,delayed release (DR/EC) 40 mg PO BID 10 Days Qty: 20 0RF famotidine 20 mg tablet 20 mg PO DAILY Qty: 10 0RF Continued lorazepam 1 mg tablet 1 mg PO BID PRN (Reason: anxiety) Qty: 6 0RF hydroxyzine pamoate [Vistaril] 50 mg capsule 50 mg PO Q8H PRN (Reason: sleep/anxiety) Qty: 15 0RF ferrous sulfate 325 mg (65 mg iron) Tablet 325 mg PO QAM Hold Instructions: Resume on 04/19/23. prochlorperazine maleate [Compazine] 10 mg tablet 10 mg PO Q6H PRN (Reason: nausea and vomiting) Qty: 10 0RF metoclopramide HCl 10 mg tablet 10 mg PO TID PRN (Reason: nausea and vomiting) 7 Days Qty: 28 1RF promethazine 25 mg tablet 25 mg PO Q6H PRN (Reason: nausea and vomiting) Qty: 20 0RF methylphenidate HCl [Concerta] 36 mg Tablet Extended Release 24hr 36 mg PO DAILY sertraline 100 mg Tablet 100 mg PO HS Discharge Orders: Discharge Order (Routine); Ordered 07/31/23 Ordered By: Candy Gurrola Admission Data Admit Date/Time: 07/30/23 10:09 Attending Provider: Ethan Ruiz Admit Provider: Beny Gutiérrez Primary Care Provider: [facility] Other Providers: Marilee Villa Jr Other Interventions: Discharge Summary Assessment (RN) Last Done: 07/31/23 15:51 Coding Level of Care Code 52205 INP/OBS DISCH >30 MIN Diagnoses Nausea & vomiting R11.2 Anxiety F41.9 Marijuana use F12.90 Hypokalemia E87.6 Hematemesis K92.0 Anemia D64.9 Metabolic acidosis E87.20
[2023-08-01] MEDS ORDERED: POTASSIUM CHLORIDE CRTAB 20 MEQ TABCR PO SCH (09:00)
== END 2023-07-31 16:01 | disposition home or self-care (01) | DRG 392 ==
LOC: ED 12:42 → EDINP 12:42 → SUATTDRO 18:51 → 2N 19:45